=== PATIENT | female | born 1930 | race Caucasian/White ===

== ENCOUNTER 2016-07-30 08:07 | Inpatient (IN) | payer MEDICARE, BC ==
[~2016-07-30] VITALS: Ht 167.6 cm; Wt 99.9 kg
[~2016-07-30 08:07] MED LIST: ALLO100T PO; ASCO500C PO; ASPI325T4 PO; CALC500T27 PO; CEFP200T PO; CLOP75TA PO; CYCL5TAB PO; DICY10CA53 PO; DOCU100C5 PO; DULO60CA6 PO; FENT1PAT19 TD; FURO-69 PO; GLUC1500 PO; HYDR-2672 PO; IRBE1TAB3 PO; LACT1CAP8 PO; LEVO250T25 PO; LEVO25TA2 PO; LEVO75TA5 PO; LIDO700A4 TP; LORA10TA68 PO; MENT118G TP; METO10TA PO; MULT1TAB52 PO; OMEG10006 PO; PANT40TA3 PO; PHEN-318 PO; PREG100C PO; PREG150C PO; VIT1CAPS10 PO
[2016-07-30] MEDS ORDERED: ACETAMINOPHEN 325 MG SUPP.RECT. PR ONE (08:30)
[2016-07-30] MEDS ORDERED: ACETAMINOPHEN 650 MG SUPP.RECT. PR ONE (08:30)
--- NOTE | 2016-07-30 08:39 | PHYS DOC ---
Past Medical History Past Medical History: Arthritis, Depression, Fibromyalgia, GERD, Hypertension, Hypothyroid, [place], Other Additional Past Medical Histor: spinal stenosis, macular generation Past Surgical History: Other Additional Past Surgical Histo: mult. back surg., promus stent ivc filter, toe surg, bladder lift, sinus sg Alcohol Use: None Drug Use: None Adult General Chief Complaint Chief Complaint: FEVER HPI HPI Patient is a 86 year old female who presents with fever. Patient brought from intermediate where she had reported temperature of 103 this morning. She has had nasal congestion, rhinorrhea, sore throat for the past 2 days. Denies headache, neck stiffness, cough, shortness of breath, chest pain, abdominal pain , nausea, vomiting, diarrhea, dysuria. Resides at [facility]. PCP is Dr. Robles. Review of Systems Review of Systems Constitutional: Reports fever and chills Eyes: Denies change in visual acuity HENT: Reports nasal congestion and sore throat Respiratory: Denies cough or shortness of breath Cardiovascular: Denies chest pain or edema GI: Denies abdominal pain, nausea, vomiting, bloody stools or diarrhea : Denies dysuria or hematuria Musculoskeletal: Denies back pain or joint pain Integument: Denies rash or skin lesions Neurologic: Denies headache, focal weakness or sensory changes Current Medications Current Medications Current Medications Medications (Trade) Dose Ordered Sig/Jeremy Start Time Stop Time Status Last Admin Dose Admin Acetaminophen (Tylenol) 650 mg 1X ONCE 07/30/16 08:30 07/30/16 08:31 Cancel Acetaminophen 650 mg 650 mg 1X ONCE 07/30/16 08:30 07/30/16 08:43 DC 07/30/16 09:05 650 MG Levofloxacin/ Dextrose 1 each 1 each PRN DAILY PRN 07/30/16 09:15 Piperacillin Sod/ Tazobactam Sod (Zosyn Per Pharmacy) 1 each PRN DAILY PRN 07/30/16 09:15 Piperacillin Sod/ Tazobactam Sod/ Sodium Chloride (Zosyn/Iv Sodium Chloride 0.9% 100ml) 100 ml @ 200 mls/hr Q6HRS 07/30/16 09:30 07/30/16 09:57 200 MLS/HR Sodium Chloride (Iv Sodium Chloride 0.9% 1000ml Bag) ml @ 500 mls/hr Q0M 07/30/16 09:07 07/30/16 15:37 07/30/16 10:30 500 MLS/HR Vancomycin HCl (Vanco Per Pharmacy) 1 each PRN DAILY PRN 07/30/16 09:15 Vancomycin HCl 2 gm/Sodium Chloride 500 ml @ 250 mls/hr 1X ONCE 07/30/16 09:30 07/30/16 11:29 Allergies Allergies Allergies Coded Allergies Type Severity Reaction Last Updated Verified nitrofurantoin Allergy Intermediate 12/25/14 Yes tramadol Allergy Intermediate 12/25/14 Yes Physical Exam Physical Exam Constitutional: Well developed, well nourished, no acute distress, non-toxic appearance. HENT: Normocephalic, atraumatic, bilateral external ears normal, TMs clear no bulging or erythema, oropharynx dry, no tonsillar enlargement or exudate, nose normal. Eyes: PERRLA, EOMI, conjunctiva normal, no discharge. Neck: supple, no stridor. No meningismus Cardiovascular: RRR, no murmurs, no edema. Lungs & Thorax: LCTAB, no wheezing, no respiratory distress. Abdomen: soft, nontender, nondistended. Skin: Warm, dry, no erythema, no rash. Back: No tenderness. Extremities: No tenderness, no edema. Neurologic: Alert and oriented X 3, cranial nerves II through XII grossly intact , symmetric strength and sensation to upper and lower extremities though diffusely weak, no focal deficits noted. Psychologic: Flat affect Current Patient Data Vital Signs Vital Signs Date Time Temp Pulse Resp B/P Pulse Ox O2 Delivery O2 Flow Rate FiO2 07/30/16 09:20 80 20 137/59 96 3 07/30/16 09:15 101.6 101.6 07/30/16 08:07 NonRebreather Mask Lab Values Laboratory Tests Test 07/30/16 08:21 07/30/16 08:25 07/30/16 09:15 Influenza Type A Antigen Negative (NEGATIVE) Influenza Type B Antigen Negative (NEGATIVE) White Blood Count 16.3x10^3/uL (4.0-11.0) H Red Blood Count 4.39x10^6/uL (3.50-5.40) Hemoglobin 12.8g/dL (12.0-15.5) Hematocrit 39.3% (36.0-47.0) Mean Corpuscular Volume 89fL (79-100) Mean Corpuscular Hemoglobin 29pg (25-35) Mean Corpuscular Hemoglobin Concent 33g/dL (31-37) Red Cell Distribution Width 15.8% (11.5-14.5) H Platelet Count 246x10^3/uL (140-400) Neutrophils (%) (Auto) 79% (31-73) H Lymphocytes (%) (Auto) 10% (24-48) L Monocytes (%) (Auto) 9% (0-9) Eosinophils (%) (Auto) 1% (0-3) Basophils (%) (Auto) 1% (0-3) Neutrophils # (Auto) 13.0x10^3uL (1.8-7.7) H Lymphocytes # (Auto) 1.7x10^3/uL (1.0-4.8) Monocytes # (Auto) 1.5x10^3/uL (0.0-1.1) H Eosinophils # (Auto) 0.1x10^3/uL (0.0-0.7) Basophils # (Auto) 0.2x10^3/uL (0.0-0.2) Segmented Neutrophils % 83% (35-66) H Band Neutrophils % 2% (0-9) Lymphocytes % 6% (24-48) L Monocytes % 6% (0-10) Eosinophils % 1% (0-5) Basophils % 2% (0-3) Platelet Estimate Adequate (ADEQUATE) Prothrombin Time 13.6SEC (11.7-14.0) Prothrombin Time INR 1.1 (0.8-1.1) PTT 25SEC (24-38) Sodium Level 142mmol/L (136-145) Potassium Level 4.1mmol/L (3.5-5.1) Chloride Level 105mmol/L (98-107) Carbon Dioxide Level 28mmol/L (21-32) Anion Gap 9 (6-14) Blood Urea Nitrogen 24mg/dL (7-20) H Creatinine 1.1mg/dL (0.6-1.0) H Estimated GFR (Cockcroft-Gault) 47.1 BUN/Creatinine Ratio 22 (6-20) H Glucose Level 118mg/dL (70-99) H Lactic Acid Level 0.9mmol/L (0.4-2.0) Calcium Level 9.1mg/dL (8.5-10.1) Total Bilirubin 0.6mg/dL (0.2-1.0) Aspartate Amino Transferase (AST) 18U/L (15-37) Alanine Aminotransferase (ALT) 14U/L (14-59) Alkaline Phosphatase 53U/L (46-116) Troponin I Quantitative < 0.017ng/mL (0.000-0.055) FQ-Cki-B-Type Natriuretic Peptide 1128pg/mL (0-449) H Total Protein 7.2g/dL (6.4-8.2) Albumin 3.3g/dL (3.4-5.0) L Albumin/Globulin Ratio 0.8 (1.0-1.7) L Thyroid Stimulating Hormone (TSH) 1.353uIU/mL (0.358-3.74) Urine Collection Type Unknown Urine Color Yellow Urine Clarity Clear Urine pH 5.[address] 1.020 Urine Protein Negativemg/dL (NEG-TRACE) Urine Glucose (UA) Negativemg/dL (NEG) Urine Ketones (Stick) Negativemg/dL (NEG) Urine Blood Negative (NEG) Urine Nitrite Negative (NEG) Urine Bilirubin Negative (NEG) Urine Urobilinogen Dipstick 0.2mg/dL (0.2 mg/dL) Urine Leukocyte Esterase Negative (NEG) Urine RBC 0/HPF (0-2) Urine WBC 0/HPF (0-4) Urine Squamous Epithelial Cells Few/LPF Urine Bacteria 0/HPF (0-FEW) Urine Mucus Marked/LPF Laboratory Tests 07/30/16 08:25 Laboratory Tests 07/30/16 08:25 EKG EKG Interpreted by me: Irregularly irregular rate 83, no acute ST or T wave changes , no ectopy. [] Radiology/Procedures Radiology/Procedures PROCEDURE: CHEST AP ONLY Portable chest, 07/30/2016: History: Fever Comparison is made to a study from 09/16/2015. The heart size and pulmonary vascularity are normal. There is calcific plaquing of the aorta. There is minimal new right basilar streaky opacity. The left lung is clear. There is no evidence of pleural fluid. IMPRESSION: Minimal streaky right basilar atelectasis/infiltrate. DICTATED and SIGNED BY: AYAAN TORRES MD DATE: 07/30/16 0852[] Course & Med Decision Making Course & Med Decision Making Pertinent Labs and Imaging studies reviewed. (See chart for details) Patient presents with fever, found to have leukocytosis and infiltrate on chest x-ray consistent with sepsis and healthcare associated pneumonia. Sepsis protocol followed with administration of IV fluids, blood cultures and lactic acid were obtained. Influenza negative, no evidence of UTI. Patient felt better after Tylenol administered. Gave broad-spectrum antibiotics to cover for healthcare associated pneumonia as the patient is a resident at a intermediate. Recommended admission to the hospital for further evaluation and treatment. The patient agreed with plan of care. Discussed with Dr. Renee who advises that he does not admit Dr. Robles's intermediate patients. Discussed with Dr. Kan who agrees to admit to inpatient status. Patient admitted in stable & improved condition. [] Dragon Disclaimer Dragon Disclaimer This electronic medical record was generated, in whole or in part, using a voice recognition dictation system. Departure Departure Impression: Primary Impression: Sepsis Additional Impressions: Healthcare-associated pneumonia Fever Leukocytosis Disposition: ADMITTED INPATIENT Condition: IMPROVED Referrals: SUNG ROBLES (PCP) Problem Qualifiers CHRISS VEE MD Jul 30, 2016 08:39
[2016-07-30 08:43] LABS: BASO # 0.2 x10^3/uL (0.0-0.2); BASO % 1 % (0-3); EOS % 1 % (0-3); HEMATOCRIT 39.3 % (36.0-47.0); HEMOGLOBIN 12.8 g/dL (12.0-15.5); LYMPH # 1.7 x10^3/uL (1.0-4.8); LYMPH % 10 % (24-48); MEAN CORPUSCULAR HEMOGLOBIN 29 pg (25-35); MEAN CORPUSCULAR HGB CONC 33 g/dL (31-37); MEAN CORPUSCULAR VOLUME 89 fL (79-100); MONO % 9 % (0-9); NEUT % 79 % (31-73); PLATELET COUNT 246 x10^3/uL (140-400); RED BLOOD COUNT 4.39 x10^6/uL (3.50-5.40); RED CELL DISTRIBUTION WIDTH 15.8 % (11.5-14.5); WHITE BLOOD COUNT 16.3 x10^3/uL (4.0-11.0)
[2016-07-30 08:53] LABS: OBC FLU VALID
[2016-07-30 08:54] LABS: INR 1.1 (0.8-1.1); PROTHROMBIN TIME PATIENT 13.6 SEC (11.7-14.0)
--- NOTE | 2016-07-30 08:56 | RAD ---
Portable chest, 07/30/2016: History: Fever Comparison is made to a study from 09/16/2015. The heart size and pulmonary vascularity are normal. There is calcific plaquing of the aorta. There is minimal new right basilar streaky opacity. The left lung is clear. There is no evidence of pleural fluid. IMPRESSION: Minimal streaky right basilar atelectasis/infiltrate.
[2016-07-30 08:57] LABS: CALCIUM 9.1 mg/dL (8.5-10.1); CREATININE 1.1 mg/dL (0.6-1.0); GFR 47.1; POTASSIUM 4.1 mmol/L (3.5-5.1)
[2016-07-30] MEDS ORDERED: NORMAL SALINE IV SCH (09:07)
[2016-07-30 09:10] LABS: ALBUMIN 3.3 g/dL (3.4-5.0); ALBUMIN/GLOBULIN RATIO 0.8 (1.0-1.7); TOTAL BILIRUBIN 0.6 mg/dL (0.2-1.0); TOTAL PROTEIN 7.2 g/dL (6.4-8.2)
[2016-07-30] MEDS ORDERED: LEVOFLOXACIN PER PHARMACY MC PRN (09:15)
[2016-07-30] MEDS ORDERED: PIP/TAZO PER PHARMACY MC PRN (09:15)
--- NOTE | 2016-07-30 09:18 | EKG ---
[facility] [address] [place] [address] Test Date: 2016-07-30 Test Time: 09:02:59 Pat Name: JANELL CHAHAL Department: Room: Gender: F Works Manager: : 1930 Requested By: CHRISS VEE Order Number: [id number] Reading MD: Hollie Lozano Measurements Intervals [place] Rate: 83 P: [place]: QRS: 0 QRSD: 84 T: 16 QT: 392 QTc: 461 Interpretive Statements SINUS RHYTHM LEFTWARD AXIS QRS(T) CONTOUR ABNORMALITY CONSIDER ANTEROSEPTAL MYOCARDIAL DAMAGE ABNORMAL ECG Electronically Signed On 08-01-2016 18:52:28 CDT by Hollie Lozano
[2016-07-30 09:28] LABS: BILIRUBIN,URINE NEGATIVE (NEG); GLUCOSE,URINE NEGATIVE (NEG); NITRITE,URINE NEGATIVE (NEG); PH,URINE 5.5; PROTEIN,URINE NEGATIVE (NEG-TRACE); UROBILINOGEN,URINE 0.2 mg/dL (0.2 mg/dL)
[2016-07-30] MEDS ORDERED: VANCOMYCIN 2 GM in IV NORMAL SALINE 500ML BAG 500 ML IV ONE (09:30)
[2016-07-30 09:43] LABS: BACTERIA,URINE 0 /HPF (0-FEW); RBC,URINE 0 /HPF (0-2); SQUAMOUS EPITHELIAL CELL,UR FEW /LPF; WBC,URINE 0 /HPF (0-4)
[2016-07-30] MEDS: PIPERACILLIN/TAZOBACTAM 4.5 GM in IV NORMAL SALINE 100ML 100 ML IV SCH ×2 (09:57→18:18)
[2016-07-30 10:04] LABS: % BASOS 2 % (0-3); % EOS 1 % (0-5); PLT ESTIMATE ADEQUATE (ADEQUATE)
[2016-07-30] MEDS ORDERED: FENTANYL PF 100 MCG/2 ML VIAL. IV PRN (10:45)
[2016-07-30] MEDS ORDERED: ONDANSETRON PF 4 MG/2 ML VIAL. IV PRN (10:45)
[2016-07-30] MEDS ORDERED: ACETAMINOPHEN 325 MG TABLET. PO PRN (10:45)
[2016-07-30 10:55] VITALS: BP 104/42
[2016-07-30] MEDS: VANCOMYCIN PER PHARMACY MC PRN ×3 (13:10→13:15)
--- NOTE | 2016-07-30 13:40 | PDOC ---
PULMONARY PROGRESS NOTES Vitals Vital Signs Date Time Temp Pulse Resp B/P Pulse Ox O2 Delivery O2 Flow Rate FiO2 07/30/16 10:55 97.7 64 20 104/42 91 Nasal Cannula 3.0 97.7 Labs Laboratory Tests Test 07/30/16 08:21 07/30/16 08:25 07/30/16 09:15 07/30/16 12:45 Influenza Type A Antigen Negative (NEGATIVE) Influenza Type B Antigen Negative (NEGATIVE) White Blood Count 16.3x10^3/uL (4.0-11.0) Red Blood Count 4.39x10^6/uL (3.50-5.40) Hemoglobin 12.8g/dL (12.0-15.5) Hematocrit 39.3% (36.0-47.0) Mean Corpuscular Volume 89fL (79-100) Mean Corpuscular Hemoglobin 29pg (25-35) Mean Corpuscular Hemoglobin Concent 33g/dL (31-37) Red Cell Distribution Width 15.8% (11.5-14.5) Platelet Count 246x10^3/uL (140-400) Neutrophils (%) (Auto) 79% (31-73) Lymphocytes (%) (Auto) 10% (24-48) Monocytes (%) (Auto) 9% (0-9) Eosinophils (%) (Auto) 1% (0-3) Basophils (%) (Auto) 1% (0-3) Neutrophils # (Auto) 13.0x10^3uL (1.8-7.7) Lymphocytes # (Auto) 1.7x10^3/uL (1.0-4.8) Monocytes # (Auto) 1.5x10^3/uL (0.0-1.1) Eosinophils # (Auto) 0.1x10^3/uL (0.0-0.7) Basophils # (Auto) 0.2x10^3/uL (0.0-0.2) Segmented Neutrophils % 83% (35-66) Band Neutrophils % 2% (0-9) Lymphocytes % 6% (24-48) Monocytes % 6% (0-10) Eosinophils % 1% (0-5) Basophils % 2% (0-3) Platelet Estimate Adequate (ADEQUATE) Prothrombin Time 13.6SEC (11.7-14.0) Prothromb Time International Ratio 1.1 (0.8-1.1) Activated Partial Thromboplast Time 25SEC (24-38) Sodium Level 142mmol/L (136-145) Potassium Level 4.1mmol/L (3.5-5.1) Chloride Level 105mmol/L (98-107) Carbon Dioxide Level 28mmol/L (21-32) Anion Gap 9 (6-14) Blood Urea Nitrogen 24mg/dL (7-20) Creatinine 1.1mg/dL (0.6-1.0) Estimated GFR (Cockcroft-Gault) 47.1 BUN/Creatinine Ratio 22 (6-20) Glucose Level 118mg/dL (70-99) Lactic Acid Level 0.9mmol/L (0.4-2.0) 2.0mmol/L (0.4-2.0) Calcium Level 9.1mg/dL (8.5-10.1) Total Bilirubin 0.6mg/dL (0.2-1.0) Aspartate Amino Transf (AST/SGOT) 18U/L (15-37) Alanine Aminotransferase (ALT/SGPT) 14U/L (14-59) Alkaline Phosphatase 53U/L (46-116) Troponin I Quantitative < 0.017ng/mL (0.000-0.055) ZY-Rjh-L-Type Natriuretic Peptide 1128pg/mL (0-449) Total Protein 7.2g/dL (6.4-8.2) Albumin 3.3g/dL (3.4-5.0) Albumin/Globulin Ratio 0.8 (1.0-1.7) Thyroid Stimulating Hormone (TSH) 1.353uIU/mL (0.358-3.74) Urine Collection Type Unknown Urine Color Yellow Urine Clarity Clear Urine pH 5.5 Urine Specific [place] 1.020 Urine Protein Negativemg/dL (NEG-TRACE) Urine Glucose (UA) Negativemg/dL (NEG) Urine Ketones (Stick) Negativemg/dL (NEG) Urine Blood Negative (NEG) Urine Nitrite Negative (NEG) Urine Bilirubin Negative (NEG) Urine Urobilinogen Dipstick 0.2mg/dL (0.2 mg/dL) Urine Leukocyte Esterase Negative (NEG) Urine RBC 0/HPF (0-2) Urine WBC 0/HPF (0-4) Urine Squamous Epithelial Cells Few/LPF Urine Bacteria 0/HPF (0-FEW) Urine Mucus Marked/LPF Laboratory Tests Test 07/30/16 08:21 07/30/16 08:25 07/30/16 09:15 07/30/16 12:45 Influenza Type A Antigen Negative (NEGATIVE) Influenza Type B Antigen Negative (NEGATIVE) White Blood Count 16.3x10^3/uL (4.0-11.0) Red Blood Count 4.39x10^6/uL (3.50-5.40) Hemoglobin 12.8g/dL (12.0-15.5) Hematocrit 39.3% (36.0-47.0) Mean Corpuscular Volume 89fL (79-100) Mean Corpuscular Hemoglobin 29pg (25-35) Mean Corpuscular Hemoglobin Concent 33g/dL (31-37) Red Cell Distribution Width 15.8% (11.5-14.5) Platelet Count 246x10^3/uL (140-400) Neutrophils (%) (Auto) 79% (31-73) Lymphocytes (%) (Auto) 10% (24-48) Monocytes (%) (Auto) 9% (0-9) Eosinophils (%) (Auto) 1% (0-3) Basophils (%) (Auto) 1% (0-3) Neutrophils # (Auto) 13.0x10^3uL (1.8-7.7) Lymphocytes # (Auto) 1.7x10^3/uL (1.0-4.8) Monocytes # (Auto) 1.5x10^3/uL (0.0-1.1) Eosinophils # (Auto) 0.1x10^3/uL (0.0-0.7) Basophils # (Auto) 0.2x10^3/uL (0.0-0.2) Segmented Neutrophils % 83% (35-66) Band Neutrophils % 2% (0-9) Lymphocytes % 6% (24-48) Monocytes % 6% (0-10) Eosinophils % 1% (0-5) Basophils % 2% (0-3) Platelet Estimate Adequate (ADEQUATE) Prothrombin Time 13.6SEC (11.7-14.0) Prothromb Time International Ratio 1.1 (0.8-1.1) Activated Partial Thromboplast Time 25SEC (24-38) Sodium Level 142mmol/L (136-145) Potassium Level 4.1mmol/L (3.5-5.1) Chloride Level 105mmol/L (98-107) Carbon Dioxide Level 28mmol/L (21-32) Anion Gap 9 (6-14) Blood Urea Nitrogen 24mg/dL (7-20) Creatinine 1.1mg/dL (0.6-1.0) Estimated GFR (Cockcroft-Gault) 47.1 BUN/Creatinine Ratio 22 (6-20) Glucose Level 118mg/dL (70-99) Lactic Acid Level 0.9mmol/L (0.4-2.0) 2.0mmol/L (0.4-2.0) Calcium Level 9.1mg/dL (8.5-10.1) Total Bilirubin 0.6mg/dL (0.2-1.0) Aspartate Amino Transf (AST/SGOT) 18U/L (15-37) Alanine Aminotransferase (ALT/SGPT) 14U/L (14-59) Alkaline Phosphatase 53U/L (46-116) Troponin I Quantitative < 0.017ng/mL (0.000-0.055) AK-Wnb-I-Type Natriuretic Peptide 1128pg/mL (0-449) Total Protein 7.2g/dL (6.4-8.2) Albumin 3.3g/dL (3.4-5.0) Albumin/Globulin Ratio 0.8 (1.0-1.7) Thyroid Stimulating Hormone (TSH) 1.353uIU/mL (0.358-3.74) Urine Collection Type Unknown Urine Color Yellow Urine Clarity Clear Urine pH 5.5 Urine Specific [place] 1.020 Urine Protein Negativemg/dL (NEG-TRACE) Urine Glucose (UA) Negativemg/dL (NEG) Urine Ketones (Stick) Negativemg/dL (NEG) Urine Blood Negative (NEG) Urine Nitrite Negative (NEG) Urine Bilirubin Negative (NEG) Urine Urobilinogen Dipstick 0.2mg/dL (0.2 mg/dL) Urine Leukocyte Esterase Negative (NEG) Urine RBC 0/HPF (0-2) Urine WBC 0/HPF (0-4) Urine Squamous Epithelial Cells Few/LPF Urine Bacteria 0/HPF (0-FEW) Urine Mucus Marked/LPF Medications Active Scripts Medications Dose Route/Sig Days Date Category Cefpodoxime Proxetil 200 Mg Tablet 200 Mg PO BID 09/18/15 Rx Probiotic (Lactobacillus Combo No.11) 1 Each Cap.sprink 1 Each PO DAILY 09/15/15 Reported Cyclobenzaprine Hcl 5 Mg Tablet 5 Mg PO PRN Q6HRS PRN 09/15/15 Reported Cymbalta (Duloxetine Hcl) 60 Mg Capsule.dr 60 Mg PO HS 09/15/15 Reported Claritin (Loratadine) 10 Mg Tablet 1 Tab PO DAILY 09/15/15 Reported Biofreeze (Menthol) 118 Ml Gel..ml. 118 Ml TP BID 09/15/15 Reported Aspirin 325 Mg Tablet 1 Tab PO DAILY 09/15/15 Reported Levothyroxine Sodium 75 Mcg Tablet 1 Tab PO DAILY 09/15/15 Reported Ocuvite Lutein & Zeaxanthin Cp (Vit C/E/Zn/Coppr/Lutein/Zeaxan) 1 Each Capsule 2 Each PO HS 12/25/14 Reported Allopurinol 100 Mg Tablet 1 Tab PO HS 12/25/14 Reported Calcium (Calcium Carbonate) 500 Mg Tablet 1,000 Mg PO DAILYWLUN 12/25/14 Reported Lidoderm (Lidocaine) 700 Mg Adh..patch 2 Patch TP DAILY 12/25/14 Reported Glucosamine Hcl 1,500 Mg Tablet 1,500 Mg PO DAILYWLUN 12/25/14 Reported FENTANYL 75mcg/hr (Fentanyl) 1 Each Patch.td72 1 Patch TD PRN Q48HR PRN 12/25/14 Reported Lyrica (Pregabalin) 150 Mg Capsule 1 Cap PO HS 12/25/14 Reported Lyrica (Pregabalin) 100 Mg Capsule 1 Cap PO DAILY 12/25/14 Reported Protonix (Pantoprazole Sodium) 40 Mg Tablet.dr 1 Tab PO DAILY 12/25/14 Reported Clopidogrel (Clopidogrel Bisulfate) 75 Mg Tablet 1 Tab PO DAILY 12/25/14 Reported Avalide 300-12.5 Mg Tablet (Irbesartan/Hydrochlorothiazide) 1 Each Tablet 1 Each PO DAILY 12/25/14 Reported Vitamin C (Ascorbic Acid) 500 Mg Capsule.er 500 Mg PO HS 12/25/14 Reported Multivitamins (Multivitamin) 1 Each Tablet 1 Tab PO DAILY 12/25/14 Reported Pv Fish Oil 1,000 Mg Softgel ([place]-3 Fatty Acids/Vitamin E) 1,000 Mg Capsule 1 Cap PO DAILY 12/25/14 Reported Hydrocodone-Apap 10-325 (Hydrocodone Bit/Acetaminophen) 1 Each Tablet 1 Tab PO BID PRN 12/25/14 Reported Impression . pneumonia fever see orders thanks ARASELI ROWAN MD Jul 30, 2016 13:40
[2016-07-30] MEDS ORDERED: ALBUTEROL SULFATE 2.5 MG/3 ML NEBU. NEB PRN (13:45)
[2016-07-30 15:30] VITALS: BP 114/47
[2016-07-30] MEDS: ENOXAPARIN 40 MG/0.4 ML SYRINGE. SQ SCH (15:56)
[2016-07-30] MEDS ORDERED: LOSA100T2 PO (16:43)
[2016-07-30] MEDS ORDERED: AMLO5TAB2 PO (16:43)
[2016-07-30] MEDS ORDERED: ACET325T21 PO (16:43)
[2016-07-30] MEDS ORDERED: FENTANYL 75MCG/HR PATCH. TD PRN (17:00)
[2016-07-30] MEDS: LIDOCAINE (700MG/PATCH) PATCH. TP SCH (17:00)
[2016-07-30] MEDS ORDERED: POLYETHYLENE GLYCOL 3350 17 GM PACKET. PO PRN (17:00)
[2016-07-30] MEDS ORDERED: BISACODYL 10 MG SUPP.RECT. PR PRN (17:00)
[2016-07-30] MEDS ORDERED: METHYL SALICYLATE/MENTHOL TOPICAL OINTMENT 29GM TUBE. TP PRN (17:15)
[2016-07-30] MEDS: OMEGA-3 FATTY ACIDS/FISH OIL 1,000 MG CAPSULE. PO SCH (18:19)
[2016-07-30] MEDS: LEVOTHYROXINE 75 MCG TABLET PO SCH (18:19)
[2016-07-30] MEDS: AMLODIPINE BESYLATE 5 MG TABLET. PO SCH (18:19)
[2016-07-30] MEDS: ASPIRIN 325 MG TABLET PO SCH (18:20)
[2016-07-30] MEDS: CLOPIDOGREL BISULFATE 75 MG TABLET PO SCH (18:20)
[2016-07-30] MEDS: LACTOBACILLUS ACIDOPH & BULGAR 1 TABLET. PO SCH (18:20)
[2016-07-30] MEDS: CETIRIZINE HCL 10 MG TABLET. PO SCH (18:20)
[2016-07-30] MEDS: LOSARTAN POTASSIUM 50 MG TABLET. PO SCH (18:20)
[2016-07-30 19:00] VITALS: BP 132/58
[2016-07-30] MEDS: PREGABALIN 75 MG CAPSULE PO SCH (20:56)
[2016-07-30] MEDS: DULOXETINE HCL 30 MG CAPSULE.DR. PO SCH (20:56)
[2016-07-30] MEDS: ALLOPURINOL 100 MG TABLET. PO SCH (20:56)
[2016-07-30 23:00] VITALS: BP 166/44
[2016-07-31] VITALS (7 sets, daily range): BP systolic 105–140; BP diastolic 40–59
--- NOTE | 2016-07-31 01:36 | CONS ---
DATE OF CONSULTATION: 07/30/2016 ATTENDING PHYSICIAN: Dr. Kan. REASON FOR CONSULTATION: The patient seen in pulmonary consultation at the request of Dr. Perez for abnormal chest x-ray. HISTORY OF PRESENT ILLNESS: The patient is an 86-year-old that resides at a alf. She had some encephalopathy and could not recall of the specifics. She basically had a high fever. She tells me she had a fever of 105. She presented with fever, increasing shortness of breath, cough mostly nonproductive. No hemoptysis. She had a chest x-ray revealing right basilar infiltrate, I personally reviewed. She is admitted. I was asked to see her in consultation. She denies nausea, vomiting, diarrhea. Her appetite is poor. PAST MEDICAL HISTORY: Arthritis, depression, fibromyalgia, gastroesophageal reflux, hypertension, hypothyroidism, coronary artery disease with previous myocardial infarction. PAST SURGICAL HISTORY: Previous IVC filter placement, bladder lift, sinus surgery. ALLERGIES: TO NITROFURANTOIN AND TRAMADOL. REVIEW OF SYSTEMS: As indicated above, otherwise, a 10-point system was reviewed and negative. SOCIAL HISTORY: Socially, she is a lifetime nonsmoker, denies any alcohol intake. CURRENT MEDICATION: List was reviewed. Please see the MRAD. FAMILY HISTORY: Noncontributory in this age group. PHYSICAL EXAMINATION: VITAL SIGNS: Since admission to the floor, the patient had a T-max of 103.0. She is currently ____. HEENT: Eyes, the sclerae were nonicteric. NECK: Jugular venous distention was not elevated. No lymphadenopathy. CHEST: Full expansion. LUNGS: Rales in the right base. No wheezes. CARDIOVASCULAR: Regular rate and rhythm with S1, S2, no S3. ABDOMEN: Soft, nontender, nondistended. EXTREMITIES: No clubbing, cyanosis or edema. NEUROLOGIC: The patient was awake, alert, following commands. A detailed neuro exam was not performed. LABORATORY DATA: White count was elevated at 16,000, hemoglobin 12, hematocrit of 39, platelet count was noted. Differential revealed increased segs and increased lymphocytes. Electrolytes were noted. BNP was elevated. BUN was elevated. Creatinine was elevated. INR was 1.1. Serology for influenza was negative. UA was negative. Chest x-ray as indicated above. IMPRESSION: 1. Fever, suspect secondary to pneumonia. 2. Abnormal x-ray revealing right basilar infiltrate, atelectasis. 3. Acute metabolic toxic encephalopathy. 4. Leukocytosis. 5. Fibromyalgia. 6. Depression. PLAN: 1. Recommend coverage for both gram-negative and gram-positive organisms. 2. Repeat chest x-ray. 3. Follow clinical course and de-escalate the antibiotics once cultures ____ have returned back negative. I do appreciate the privilege in sharing in this patient's care. ARASELI ROWAN MD DR: ODESSA/ellis JOB#: [id number] / [id number]
[2016-07-31 05:33] LABS: BASO # 0.1 x10^3/uL (0.0-0.2); BASO % 1 % (0-3); EOS % 4 % (0-3); HEMATOCRIT 31.8 % (36.0-47.0); HEMOGLOBIN 10.4 g/dL (12.0-15.5); LYMPH # 2.2 x10^3/uL (1.0-4.8); LYMPH % 15 % (24-48); MEAN CORPUSCULAR HEMOGLOBIN 29 pg (25-35); MEAN CORPUSCULAR HGB CONC 33 g/dL (31-37); MEAN CORPUSCULAR VOLUME 90 fL (79-100); MONO % 9 % (0-9); NEUT % 72 % (31-73); PLATELET COUNT 182 x10^3/uL (140-400); RED BLOOD COUNT 3.55 x10^6/uL (3.50-5.40); RED CELL DISTRIBUTION WIDTH 16.1 % (11.5-14.5); WHITE BLOOD COUNT 14.9 x10^3/uL (4.0-11.0)
[2016-07-31] MEDS: PIPERACILLIN/TAZOBACTAM 4.5 GM in IV NORMAL SALINE 100ML 100 ML IV SCH ×5 (05:38→12:49)
[2016-07-31 05:57] LABS: CALCIUM 8.4 mg/dL (8.5-10.1); CREATININE 1.3 mg/dL (0.6-1.0); GFR 38.8; POTASSIUM 3.9 mmol/L (3.5-5.1)
[2016-07-31] MEDS: LEVOTHYROXINE 75 MCG TABLET PO SCH (06:07)
[2016-07-31] MEDS: CLOPIDOGREL BISULFATE 75 MG TABLET PO SCH (06:07)
--- NOTE | 2016-07-31 07:54 | RAD ---
EXAM: Chest, single view. HISTORY: Fever. COMPARISON: 07/30/2016 and 11/04/2007. FINDINGS: A frontal view of the chest is obtained. There is no infiltrate, effusion or pneumothorax. The heart is normal in size. There is widening of the right paratracheal stripe. This is minimally increased compared to a remote study dated 11/04/2007, a component of which is likely due to differences in patient positioning. This may be due to tortuous arch great vessels. IMPRESSION: No acute pulmonary finding.
[2016-07-31] MEDS ORDERED: LOSARTAN POTASSIUM 50 MG TABLET. ONE (08:18)
[2016-07-31] MEDS: LACTOBACILLUS ACIDOPH & BULGAR 1 TABLET. PO SCH (08:22)
[2016-07-31] MEDS: LOSARTAN POTASSIUM 50 MG TABLET. PO SCH (08:22)
[2016-07-31] MEDS: ASPIRIN 325 MG TABLET PO SCH (08:22)
[2016-07-31] MEDS: CETIRIZINE HCL 10 MG TABLET. PO SCH (08:23)
[2016-07-31] MEDS: AMLODIPINE BESYLATE 5 MG TABLET. PO SCH (08:23)
[2016-07-31] MEDS: OMEGA-3 FATTY ACIDS/FISH OIL 1,000 MG CAPSULE. PO SCH (08:23)
[2016-07-31] MEDS: PREGABALIN 75 MG CAPSULE PO SCH ×2 (08:24→21:35)
[2016-07-31] MEDS: PREGABALIN 50 MG CAPSULE PO SCH (08:30)
[2016-07-31] MEDS: HYDROCODONE/APAP 7.5/325MG TABLET. PO PRN (08:32)
[2016-07-31] MEDS: LIDOCAINE (700MG/PATCH) PATCH. TP SCH (09:00)
[2016-07-31] MEDS: FENTANYL 75MCG/HR PATCH. TD PRN (09:34)
--- NOTE | 2016-07-31 09:38 | PDOC ---
PROGRESS NOTES Chief Complaint Chief Complaint HCAP ASSESSMENT AND pLAN: 1. Sepsis: no fevers reported in 24h. BPs soft but stable 2. RLL PNA: on Zosyn 3. CAD, HTN, HLD: no acute issues, cont home meds 4. Hypothyroidism: on synthroid 5. OA, chronic pain: cont home fentanyl patch, oral breakthough meds 6. Prophylaxis: H2B Vitals Vitals Vital Signs Date Time Temp Pulse Resp B/P Pulse Ox O2 Delivery O2 Flow Rate FiO2 07/31/16 08:32 96 Nasal Cannula 3.0 07/31/16 08:23 71 140/59 07/31/16 07:58 97.5 18 97.5 Physical Exam General: Alert, Cooperative, No acute distress Heart: Regular rate Lungs: Crackles Abdomen: Normal bowel sounds, Soft, No tenderness Extremities: No edema Labs LABS Laboratory Tests Test 07/30/16 12:45 07/31/16 04:40 Lactic Acid Level 2.0mmol/L (0.4-2.0) White Blood Count 14.9x10^3/uL (4.0-11.0) Red Blood Count 3.55x10^6/uL (3.50-5.40) Hemoglobin 10.4g/dL (12.0-15.5) Hematocrit 31.8% (36.0-47.0) Mean Corpuscular Volume 90fL (79-100) Mean Corpuscular Hemoglobin 29pg (25-35) Mean Corpuscular Hemoglobin Concent 33g/dL (31-37) Red Cell Distribution Width 16.1% (11.5-14.5) Platelet Count 182x10^3/uL (140-400) Neutrophils (%) (Auto) 72% (31-73) Lymphocytes (%) (Auto) 15% (24-48) Monocytes (%) (Auto) 9% (0-9) Eosinophils (%) (Auto) 4% (0-3) Basophils (%) (Auto) 1% (0-3) Neutrophils # (Auto) 10.8x10^3uL (1.8-7.7) Lymphocytes # (Auto) 2.2x10^3/uL (1.0-4.8) Monocytes # (Auto) 1.3x10^3/uL (0.0-1.1) Eosinophils # (Auto) 0.6x10^3/uL (0.0-0.7) Basophils # (Auto) 0.1x10^3/uL (0.0-0.2) Sodium Level 139mmol/L (136-145) Potassium Level 3.9mmol/L (3.5-5.1) Chloride Level 104mmol/L (98-107) Carbon Dioxide Level 30mmol/L (21-32) Anion Gap 5 (6-14) Blood Urea Nitrogen 26mg/dL (7-20) Creatinine 1.3mg/dL (0.6-1.0) Estimated GFR (Cockcroft-Gault) 38.8 Glucose Level 103mg/dL (70-99) Calcium Level 8.4mg/dL (8.5-10.1) Review of Systems Review of Systems feels ok, breathing unchanged. YARON PAYNE MD Jul 31, 2016 09:37
--- NOTE | 2016-07-31 10:16 | PDOC ---
PULMONARY PROGRESS NOTES Subjective PT VERY WEAK, NO INCREASE SOA Vitals Vital Signs Date Time Temp Pulse Resp B/P Pulse Ox O2 Delivery O2 Flow Rate FiO2 07/31/16 09:34 96 Nasal Cannula 3.0 07/31/16 08:23 71 140/59 07/31/16 07:58 97.5 18 97.5 ROS: No Nausea, No Chest Pain, No Abdominal Pain, No Increase Cough Lungs: Clear Cardiovascular: S1, S2 Abdomen: Soft Neuro Exam: Alert Extremities: No Edema Skin: Warm Labs Laboratory Tests Test 07/30/16 08:21 07/30/16 08:25 07/30/16 09:15 07/30/16 12:45 Influenza Type A Antigen Negative (NEGATIVE) Influenza Type B Antigen Negative (NEGATIVE) White Blood Count 16.3x10^3/uL (4.0-11.0) Red Blood Count 4.39x10^6/uL (3.50-5.40) Hemoglobin 12.8g/dL (12.0-15.5) Hematocrit 39.3% (36.0-47.0) Mean Corpuscular Volume 89fL (79-100) Mean Corpuscular Hemoglobin 29pg (25-35) Mean Corpuscular Hemoglobin Concent 33g/dL (31-37) Red Cell Distribution Width 15.8% (11.5-14.5) Platelet Count 246x10^3/uL (140-400) Neutrophils (%) (Auto) 79% (31-73) Lymphocytes (%) (Auto) 10% (24-48) Monocytes (%) (Auto) 9% (0-9) Eosinophils (%) (Auto) 1% (0-3) Basophils (%) (Auto) 1% (0-3) Neutrophils # (Auto) 13.0x10^3uL (1.8-7.7) Lymphocytes # (Auto) 1.7x10^3/uL (1.0-4.8) Monocytes # (Auto) 1.5x10^3/uL (0.0-1.1) Eosinophils # (Auto) 0.1x10^3/uL (0.0-0.7) Basophils # (Auto) 0.2x10^3/uL (0.0-0.2) Segmented Neutrophils % 83% (35-66) Band Neutrophils % 2% (0-9) Lymphocytes % 6% (24-48) Monocytes % 6% (0-10) Eosinophils % 1% (0-5) Basophils % 2% (0-3) Platelet Estimate Adequate (ADEQUATE) Prothrombin Time 13.6SEC (11.7-14.0) Prothromb Time International Ratio 1.1 (0.8-1.1) Activated Partial Thromboplast Time 25SEC (24-38) Sodium Level 142mmol/L (136-145) Potassium Level 4.1mmol/L (3.5-5.1) Chloride Level 105mmol/L (98-107) Carbon Dioxide Level 28mmol/L (21-32) Anion Gap 9 (6-14) Blood Urea Nitrogen 24mg/dL (7-20) Creatinine 1.1mg/dL (0.6-1.0) Estimated GFR (Cockcroft-Gault) 47.1 BUN/Creatinine Ratio 22 (6-20) Glucose Level 118mg/dL (70-99) Lactic Acid Level 0.9mmol/L (0.4-2.0) 2.0mmol/L (0.4-2.0) Calcium Level 9.1mg/dL (8.5-10.1) Total Bilirubin 0.6mg/dL (0.2-1.0) Aspartate Amino Transf (AST/SGOT) 18U/L (15-37) Alanine Aminotransferase (ALT/SGPT) 14U/L (14-59) Alkaline Phosphatase 53U/L (46-116) Troponin I Quantitative < 0.017ng/mL (0.000-0.055) DM-Kdl-B-Type Natriuretic Peptide 1128pg/mL (0-449) Total Protein 7.2g/dL (6.4-8.2) Albumin 3.3g/dL (3.4-5.0) Albumin/Globulin Ratio 0.8 (1.0-1.7) Thyroid Stimulating Hormone (TSH) 1.353uIU/mL (0.358-3.74) Urine Collection Type Unknown Urine Color Yellow Urine Clarity Clear Urine pH 5.5 Urine Specific Walls 1.020 Urine Protein Negativemg/dL (NEG-TRACE) Urine Glucose (UA) Negativemg/dL (NEG) Urine Ketones (Stick) Negativemg/dL (NEG) Urine Blood Negative (NEG) Urine Nitrite Negative (NEG) Urine Bilirubin Negative (NEG) Urine Urobilinogen Dipstick 0.2mg/dL (0.2 mg/dL) Urine Leukocyte Esterase Negative (NEG) Urine RBC 0/HPF (0-2) Urine WBC 0/HPF (0-4) Urine Squamous Epithelial Cells Few/LPF Urine Bacteria 0/HPF (0-FEW) Urine Mucus Marked/LPF Test 07/31/16 04:40 White Blood Count 14.9x10^3/uL (4.0-11.0) Red Blood Count 3.55x10^6/uL (3.50-5.40) Hemoglobin 10.4g/dL (12.0-15.5) Hematocrit 31.8% (36.0-47.0) Mean Corpuscular Volume 90fL (79-100) Mean Corpuscular Hemoglobin 29pg (25-35) Mean Corpuscular Hemoglobin Concent 33g/dL (31-37) Red Cell Distribution Width 16.1% (11.5-14.5) Platelet Count 182x10^3/uL (140-400) Neutrophils (%) (Auto) 72% (31-73) Lymphocytes (%) (Auto) 15% (24-48) Monocytes (%) (Auto) 9% (0-9) Eosinophils (%) (Auto) 4% (0-3) Basophils (%) (Auto) 1% (0-3) Neutrophils # (Auto) 10.8x10^3uL (1.8-7.7) Lymphocytes # (Auto) 2.2x10^3/uL (1.0-4.8) Monocytes # (Auto) 1.3x10^3/uL (0.0-1.1) Eosinophils # (Auto) 0.6x10^3/uL (0.0-0.7) Basophils # (Auto) 0.1x10^3/uL (0.0-0.2) Sodium Level 139mmol/L (136-145) Potassium Level 3.9mmol/L (3.5-5.1) Chloride Level 104mmol/L (98-107) Carbon Dioxide Level 30mmol/L (21-32) Anion Gap 5 (6-14) Blood Urea Nitrogen 26mg/dL (7-20) Creatinine 1.3mg/dL (0.6-1.0) Estimated GFR (Cockcroft-Gault) 38.8 Glucose Level 103mg/dL (70-99) Calcium Level 8.4mg/dL (8.5-10.1) Laboratory Tests Test 07/30/16 12:45 07/31/16 04:40 Lactic Acid Level 2.0mmol/L (0.4-2.0) White Blood Count 14.9x10^3/uL (4.0-11.0) Red Blood Count 3.55x10^6/uL (3.50-5.40) Hemoglobin 10.4g/dL (12.0-15.5) Hematocrit 31.8% (36.0-47.0) Mean Corpuscular Volume 90fL (79-100) Mean Corpuscular Hemoglobin 29pg (25-35) Mean Corpuscular Hemoglobin Concent 33g/dL (31-37) Red Cell Distribution Width 16.1% (11.5-14.5) Platelet Count 182x10^3/uL (140-400) Neutrophils (%) (Auto) 72% (31-73) Lymphocytes (%) (Auto) 15% (24-48) Monocytes (%) (Auto) 9% (0-9) Eosinophils (%) (Auto) 4% (0-3) Basophils (%) (Auto) 1% (0-3) Neutrophils # (Auto) 10.8x10^3uL (1.8-7.7) Lymphocytes # (Auto) 2.2x10^3/uL (1.0-4.8) Monocytes # (Auto) 1.3x10^3/uL (0.0-1.1) Eosinophils # (Auto) 0.6x10^3/uL (0.0-0.7) Basophils # (Auto) 0.1x10^3/uL (0.0-0.2) Sodium Level 139mmol/L (136-145) Potassium Level 3.9mmol/L (3.5-5.1) Chloride Level 104mmol/L (98-107) Carbon Dioxide Level 30mmol/L (21-32) Anion Gap 5 (6-14) Blood Urea Nitrogen 26mg/dL (7-20) Creatinine 1.3mg/dL (0.6-1.0) Estimated GFR (Cockcroft-Gault) 38.8 Glucose Level 103mg/dL (70-99) Calcium Level 8.4mg/dL (8.5-10.1) Medications Active Scripts Medications Dose Route/Sig Days Date Category Cefpodoxime Proxetil 200 Mg Tablet 200 Mg PO BID 09/18/15 Rx Probiotic (Lactobacillus Combo No.11) 1 Each Cap.sprink 1 Each PO DAILY 09/15/15 Reported Cyclobenzaprine Hcl 5 Mg Tablet 5 Mg PO PRN Q6HRS PRN 09/15/15 Reported Cymbalta (Duloxetine Hcl) 60 Mg Capsule.dr 60 Mg PO HS 09/15/15 Reported Claritin (Loratadine) 10 Mg Tablet 1 Tab PO DAILY 09/15/15 Reported Biofreeze (Menthol) 118 Ml Gel..ml. 118 Ml TP BID 09/15/15 Reported Aspirin 325 Mg Tablet 1 Tab PO DAILY 09/15/15 Reported Levothyroxine Sodium 75 Mcg Tablet 1 Tab PO DAILY 09/15/15 Reported Ocuvite Lutein & Zeaxanthin Cp (Vit C/E/Zn/Coppr/Lutein/Zeaxan) 1 Each Capsule 2 Each PO HS 12/25/14 Reported Allopurinol 100 Mg Tablet 1 Tab PO HS 12/25/14 Reported Calcium (Calcium Carbonate) 500 Mg Tablet 1,000 Mg PO DAILYWLUN 12/25/14 Reported Lidoderm (Lidocaine) 700 Mg Adh..patch 2 Patch TP DAILY 12/25/14 Reported Glucosamine Hcl 1,500 Mg Tablet 1,500 Mg PO DAILYWLUN 12/25/14 Reported FENTANYL 75mcg/hr (Fentanyl) 1 Each Patch.td72 1 Patch TD PRN Q48HR PRN 12/25/14 Reported Lyrica (Pregabalin) 150 Mg Capsule 1 Cap PO HS 12/25/14 Reported Lyrica (Pregabalin) 100 Mg Capsule 1 Cap PO DAILY 12/25/14 Reported Protonix (Pantoprazole Sodium) 40 Mg Tablet.dr 1 Tab PO DAILY 12/25/14 Reported Clopidogrel (Clopidogrel Bisulfate) 75 Mg Tablet 1 Tab PO DAILY 12/25/14 Reported Avalide 300-12.5 Mg Tablet (Irbesartan/Hydrochlorothiazide) 1 Each Tablet 1 Each PO DAILY 12/25/14 Reported Vitamin C (Ascorbic Acid) 500 Mg Capsule.er 500 Mg PO HS 12/25/14 Reported Multivitamins (Multivitamin) 1 Each Tablet 1 Tab PO DAILY 12/25/14 Reported Pv Fish Oil 1,000 Mg Softgel ([place]-3 Fatty Acids/Vitamin E) 1,000 Mg Capsule 1 Cap PO DAILY 12/25/14 Reported Hydrocodone-Apap 10-325 (Hydrocodone Bit/Acetaminophen) 1 Each Tablet 1 Tab PO BID PRN 12/25/14 Reported Impression . 1. Fever, suspect secondary to pneumonia/ AND viral syndrome 2. Abnormal x-ray revealing right basilar infiltrate, atelectasis. 3. Acute metabolic toxic encephalopathy. 4. Leukocytosis. 5. Fibromyalgia. 6. Depression. Plan . 1. Recommend coverage for both gram-negative and gram-positive organisms. 2. Repeat chest x-ray, reviewed no increase infiltrates 3. Follow clinical course and de-escalate the antibiotics once cultures have returned back negative. ARASELI ROWAN MD Jul 31, 2016 10:16
--- NOTE | 2016-07-31 10:24 | HP ---
ADMIT DATE: 07/30/2016 CHIEF COMPLAINT: Fever. HISTORY OF PRESENT ILLNESS: The patient is an 86-year-old skilled nursing resident who was found with a temperature of 103 at the skilled nursing. She was brought to the Emergency Room. On further questioning, she relayed that she had had several days of nasal congestion, rhinorrhea, sore throat, but denied any headaches, any cough, shortness of breath or chest pain. She was found with right lower lobe pneumonia and was admitted. PAST MEDICAL HISTORY: Hypertension, GERD, hypothyroidism, arthritis, depression, fibromyalgia, CAD, spinal stenosis, macular degeneration, IVC filter placement, back surgeries and bladder lift. FAMILY HISTORY: Noncontributory in this 86-year-old. SOCIAL HISTORY: Currently in a skilled nursing. No toxic habits. ALLERGIES: NITROFURANTOIN, TRAMADOL. MEDICATIONS: MAR reconciled with home medications. REVIEW OF SYSTEMS: As per HPI. Rest of organ system review is negative. PHYSICAL EXAMINATION: VITAL SIGNS: Show a blood pressure of 104/42, heart rate of 64, respiratory rate 20, currently afebrile, at admission 103. GENERAL: This is an obese 86-year-old woman, pale appearing, alert and oriented, in no acute distress. HEENT: Shows no scleral icterus. NECK: Supple. LUNGS: Have rales in the right base. CARDIOVASCULAR: Heart has irregular rate and rhythm. ABDOMEN: Obese, positive bowel sounds. EXTREMITIES: Show no edema. SKIN: Warm, soft and dry. LABORATORY DATA: CBC with a WBC of 16.3, hemoglobin 12.8, platelets of 246, neutrophils segmented 83, bands 2. Chemistries with a BUN and creatinine of 24 and 1.1, normal electrolytes, normal LFTs, albumin at 3.3. Coags within normal limits. Serology for influenza A and B were negative. RADIOLOGIC IMAGING: Chest x-ray with mild streaky right basilar atelectasis/infiltrate. ASSESSMENT AND PLAN: The patient is an 86-year-old woman coming in with pneumonia, sepsis. She has been started on antibiotics with vancomycin and Zosyn. She will receive nebulizers p.r.n. as well as O2 supplemental by nasal cannula. We will continue all her home medications for hypertension, gout, hypothyroidism, and coronary artery disease. Monitor her vital signs closely. Labs will be repeated in the a.m. YARON PAYNE MD DR: Molly JOB#: [id number] / [id number] [place]
[2016-07-31] MEDS ORDERED: GLUCOSAMINE HCL 1500 MG PO SCH (12:00)
[2016-07-31] MEDS: VANCOMYCIN 1.5 GM in IV NORMAL SALINE 500ML BAG 500 ML IV SCH (14:27)
[2016-07-31] MEDS: VANCOMYCIN PER PHARMACY MC PRN (14:44)
[2016-07-31] MEDS: ENOXAPARIN 40 MG/0.4 ML SYRINGE. SQ SCH (16:36)
[2016-07-31] MEDS: PIPERACILLIN/TAZOBACTAM 3.375 GM in IV NORMAL SALINE 50ML 50 ML IV SCH ×2 (17:48→21:36)
[2016-07-31] MEDS: DULOXETINE HCL 30 MG CAPSULE.DR. PO SCH (21:36)
[2016-07-31] MEDS: ALLOPURINOL 100 MG TABLET. PO SCH (21:36)
[2016-08-01 03:35] VITALS: BP 144/57
[2016-08-01 05:01] LABS: BASO # 0.1 x10^3/uL (0.0-0.2); BASO % 1 % (0-3); EOS % 7 % (0-3); HEMATOCRIT 31.5 % (36.0-47.0); HEMOGLOBIN 10.5 g/dL (12.0-15.5); LYMPH # 1.4 x10^3/uL (1.0-4.8); LYMPH % 12 % (24-48); MEAN CORPUSCULAR HEMOGLOBIN 30 pg (25-35); MEAN CORPUSCULAR HGB CONC 33 g/dL (31-37); MEAN CORPUSCULAR VOLUME 89 fL (79-100); MONO % 9 % (0-9); NEUT % 72 % (31-73); PLATELET COUNT 191 x10^3/uL (140-400); RED BLOOD COUNT 3.54 x10^6/uL (3.50-5.40); RED CELL DISTRIBUTION WIDTH 15.6 % (11.5-14.5); WHITE BLOOD COUNT 12.1 x10^3/uL (4.0-11.0)
[2016-08-01 05:20] LABS: CALCIUM 8.6 mg/dL (8.5-10.1); GFR 52.6; POTASSIUM 3.9 mmol/L (3.5-5.1)
[2016-08-01] MEDS: LEVOTHYROXINE 75 MCG TABLET PO SCH (06:14)
[2016-08-01] MEDS: CLOPIDOGREL BISULFATE 75 MG TABLET PO SCH (06:14)
[2016-08-01] MEDS: PIPERACILLIN/TAZOBACTAM 3.375 GM in IV NORMAL SALINE 50ML 50 ML IV SCH ×3 (06:15→18:02)
[2016-08-01 07:50] VITALS: BP 141/48
[2016-08-01] MEDS: LIDOCAINE (700MG/PATCH) PATCH. TP SCH (09:00)
[2016-08-01] MEDS: LOSARTAN POTASSIUM 50 MG TABLET. PO SCH (09:47)
[2016-08-01] MEDS: CETIRIZINE HCL 10 MG TABLET. PO SCH (09:48)
[2016-08-01] MEDS: ASPIRIN 325 MG TABLET PO SCH (09:48)
[2016-08-01] MEDS: AMLODIPINE BESYLATE 5 MG TABLET. PO SCH (09:48)
[2016-08-01] MEDS: OMEGA-3 FATTY ACIDS/FISH OIL 1,000 MG CAPSULE. PO SCH (09:48)
[2016-08-01] MEDS: LACTOBACILLUS ACIDOPH & BULGAR 1 TABLET. PO SCH (09:48)
[2016-08-01] MEDS: PREGABALIN 50 MG CAPSULE PO SCH (09:49)
--- NOTE | 2016-08-01 10:21 | PDOC ---
PROGRESS NOTES Chief Complaint Chief Complaint HCAP ASSESSMENT AND PLAN: 1. Sepsis: resolved. afeb x48h+ BPs recovered. 2. RLL PNA: on Zosyn; could change to PO levaquin 3. CAD, HTN, HLD: no acute issues, cont home meds 4. Hypothyroidism: on synthroid 5. OA, chronic pain: cont home fentanyl patch, oral breakthrough meds 6. Prophylaxis: H2B 7. Dispo: will need rehab most likely. OT/PT eval in AM Vitals Vitals Vital Signs Date Time Temp Pulse Resp B/P Pulse Ox O2 Delivery O2 Flow Rate FiO2 08/01/16 09:48 65 141/48 08/01/16 07:50 99.1 16 92 Nasal Cannula 3.0 99.1 Physical Exam General: Alert, Cooperative, No acute distress Heart: Regular rate Lungs: Clear Abdomen: Normal bowel sounds, Soft, No tenderness Extremities: No edema Skin: No rashes Labs LABS Laboratory Tests Test 08/01/16 04:30 White Blood Count 12.1x10^3/uL (4.0-11.0) Red Blood Count 3.54x10^6/uL (3.50-5.40) Hemoglobin 10.5g/dL (12.0-15.5) Hematocrit 31.5% (36.0-47.0) Mean Corpuscular Volume 89fL (79-100) Mean Corpuscular Hemoglobin 30pg (25-35) Mean Corpuscular Hemoglobin Concent 33g/dL (31-37) Red Cell Distribution Width 15.6% (11.5-14.5) Platelet Count 191x10^3/uL (140-400) Neutrophils (%) (Auto) 72% (31-73) Lymphocytes (%) (Auto) 12% (24-48) Monocytes (%) (Auto) 9% (0-9) Eosinophils (%) (Auto) 7% (0-3) Basophils (%) (Auto) 1% (0-3) Neutrophils # (Auto) 8.7x10^3uL (1.8-7.7) Lymphocytes # (Auto) 1.4x10^3/uL (1.0-4.8) Monocytes # (Auto) 1.1x10^3/uL (0.0-1.1) Eosinophils # (Auto) 0.9x10^3/uL (0.0-0.7) Basophils # (Auto) 0.1x10^3/uL (0.0-0.2) Sodium Level 143mmol/L (136-145) Potassium Level 3.9mmol/L (3.5-5.1) Chloride Level 109mmol/L (98-107) Carbon Dioxide Level 28mmol/L (21-32) Anion Gap 6 (6-14) Blood Urea Nitrogen 22mg/dL (7-20) Creatinine 1.0mg/dL (0.6-1.0) Estimated GFR (Cockcroft-Gault) 52.6 Glucose Level 101mg/dL (70-99) Calcium Level 8.6mg/dL (8.5-10.1) Review of Systems Review of Systems feels stronger, voice is better. mohamud BURNHAM or YARON CHOW MD Aug 01, 2016 10:21
[2016-08-01 11:34] VITALS: BP 130/55
[2016-08-01] MEDS: VANCOMYCIN PER PHARMACY MC PRN (12:23)
[2016-08-01] MEDS: VANCOMYCIN 1.5 GM in IV NORMAL SALINE 500ML BAG 500 ML IV SCH (13:15)
--- NOTE | 2016-08-01 14:35 | PDOC ---
PULMONARY PROGRESS NOTES Subjective PT FEELS BETTER Vitals Vital Signs Date Time Temp Pulse Resp B/P Pulse Ox O2 Delivery O2 Flow Rate FiO2 08/01/16 11:34 98.8 64 16 130/55 92 Nasal Cannula 3.0 98.8 ROS: No Nausea, No Chest Pain, No Abdominal Pain, No Increase Cough General: Short term memory loss, Lungs: Crackles Cardiovascular: S1, S2 Abdomen: Soft Neuro Exam: Alert Extremities: No Edema Skin: Warm Labs Laboratory Tests Test 07/31/16 04:40 08/01/16 04:30 08/01/16 11:20 White Blood Count 14.9x10^3/uL (4.0-11.0) 12.1x10^3/uL (4.0-11.0) Red Blood Count 3.55x10^6/uL (3.50-5.40) 3.54x10^6/uL (3.50-5.40) Hemoglobin 10.4g/dL (12.0-15.5) 10.5g/dL (12.0-15.5) Hematocrit 31.8% (36.0-47.0) 31.5% (36.0-47.0) Mean Corpuscular Volume 90fL (79-100) 89fL (79-100) Mean Corpuscular Hemoglobin 29pg (25-35) 30pg (25-35) Mean Corpuscular Hemoglobin Concent 33g/dL (31-37) 33g/dL (31-37) Red Cell Distribution Width 16.1% (11.5-14.5) 15.6% (11.5-14.5) Platelet Count 182x10^3/uL (140-400) 191x10^3/uL (140-400) Neutrophils (%) (Auto) 72% (31-73) 72% (31-73) Lymphocytes (%) (Auto) 15% (24-48) 12% (24-48) Monocytes (%) (Auto) 9% (0-9) 9% (0-9) Eosinophils (%) (Auto) 4% (0-3) 7% (0-3) Basophils (%) (Auto) 1% (0-3) 1% (0-3) Neutrophils # (Auto) 10.8x10^3uL (1.8-7.7) 8.7x10^3uL (1.8-7.7) Lymphocytes # (Auto) 2.2x10^3/uL (1.0-4.8) 1.4x10^3/uL (1.0-4.8) Monocytes # (Auto) 1.3x10^3/uL (0.0-1.1) 1.1x10^3/uL (0.0-1.1) Eosinophils # (Auto) 0.6x10^3/uL (0.0-0.7) 0.9x10^3/uL (0.0-0.7) Basophils # (Auto) 0.1x10^3/uL (0.0-0.2) 0.1x10^3/uL (0.0-0.2) Sodium Level 139mmol/L (136-145) 143mmol/L (136-145) Potassium Level 3.9mmol/L (3.5-5.1) 3.9mmol/L (3.5-5.1) Chloride Level 104mmol/L (98-107) 109mmol/L (98-107) Carbon Dioxide Level 30mmol/L (21-32) 28mmol/L (21-32) Anion Gap 5 (6-14) 6 (6-14) Blood Urea Nitrogen 26mg/dL (7-20) 22mg/dL (7-20) Creatinine 1.3mg/dL (0.6-1.0) 1.0mg/dL (0.6-1.0) Estimated GFR (Cockcroft-Gault) 38.8 52.6 Glucose Level 103mg/dL (70-99) 101mg/dL (70-99) Calcium Level 8.4mg/dL (8.5-10.1) 8.6mg/dL (8.5-10.1) Vancomycin Level Trough 16.1mcg/mL (10.0-20.0) Vancomycin Last Dose Date 07/31/16 Vancomycin Last Dose Time 1200 Laboratory Tests Test 08/01/16 04:30 08/01/16 11:20 White Blood Count 12.1x10^3/uL (4.0-11.0) Red Blood Count 3.54x10^6/uL (3.50-5.40) Hemoglobin 10.5g/dL (12.0-15.5) Hematocrit 31.5% (36.0-47.0) Mean Corpuscular Volume 89fL (79-100) Mean Corpuscular Hemoglobin 30pg (25-35) Mean Corpuscular Hemoglobin Concent 33g/dL (31-37) Red Cell Distribution Width 15.6% (11.5-14.5) Platelet Count 191x10^3/uL (140-400) Neutrophils (%) (Auto) 72% (31-73) Lymphocytes (%) (Auto) 12% (24-48) Monocytes (%) (Auto) 9% (0-9) Eosinophils (%) (Auto) 7% (0-3) Basophils (%) (Auto) 1% (0-3) Neutrophils # (Auto) 8.7x10^3uL (1.8-7.7) Lymphocytes # (Auto) 1.4x10^3/uL (1.0-4.8) Monocytes # (Auto) 1.1x10^3/uL (0.0-1.1) Eosinophils # (Auto) 0.9x10^3/uL (0.0-0.7) Basophils # (Auto) 0.1x10^3/uL (0.0-0.2) Sodium Level 143mmol/L (136-145) Potassium Level 3.9mmol/L (3.5-5.1) Chloride Level 109mmol/L (98-107) Carbon Dioxide Level 28mmol/L (21-32) Anion Gap 6 (6-14) Blood Urea Nitrogen 22mg/dL (7-20) Creatinine 1.0mg/dL (0.6-1.0) Estimated GFR (Cockcroft-Gault) 52.6 Glucose Level 101mg/dL (70-99) Calcium Level 8.6mg/dL (8.5-10.1) Vancomycin Level Trough 16.1mcg/mL (10.0-20.0) Vancomycin Last Dose Date 07/31/16 Vancomycin Last Dose Time 1200 Medications Active Scripts Medications Dose Route/Sig Days Date Category Cefpodoxime Proxetil 200 Mg Tablet 200 Mg PO BID 09/18/15 Rx Probiotic (Lactobacillus Combo No.11) 1 Each Cap.sprink 1 Each PO DAILY 09/15/15 Reported Cyclobenzaprine Hcl 5 Mg Tablet 5 Mg PO PRN Q6HRS PRN 09/15/15 Reported Cymbalta (Duloxetine Hcl) 60 Mg Capsule.dr 60 Mg PO HS 09/15/15 Reported Claritin (Loratadine) 10 Mg Tablet 1 Tab PO DAILY 09/15/15 Reported Biofreeze (Menthol) 118 Ml Gel..ml. 118 Ml TP BID 09/15/15 Reported Aspirin 325 Mg Tablet 1 Tab PO DAILY 09/15/15 Reported Levothyroxine Sodium 75 Mcg Tablet 1 Tab PO DAILY 09/15/15 Reported Ocuvite Lutein & Zeaxanthin Cp (Vit C/E/Zn/Coppr/Lutein/Zeaxan) 1 Each Capsule 2 Each PO HS 12/25/14 Reported Allopurinol 100 Mg Tablet 1 Tab PO HS 12/25/14 Reported Calcium (Calcium Carbonate) 500 Mg Tablet 1,000 Mg PO DAILYWLUN 12/25/14 Reported Lidoderm (Lidocaine) 700 Mg Adh..patch 2 Patch TP DAILY 12/25/14 Reported Glucosamine Hcl 1,500 Mg Tablet 1,500 Mg PO DAILYWLUN 12/25/14 Reported FENTANYL 75mcg/hr (Fentanyl) 1 Each Patch.td72 1 Patch TD PRN Q48HR PRN 12/25/14 Reported Lyrica (Pregabalin) 150 Mg Capsule 1 Cap PO HS 12/25/14 Reported Lyrica (Pregabalin) 100 Mg Capsule 1 Cap PO DAILY 12/25/14 Reported Protonix (Pantoprazole Sodium) 40 Mg Tablet.dr 1 Tab PO DAILY 12/25/14 Reported Clopidogrel (Clopidogrel Bisulfate) 75 Mg Tablet 1 Tab PO DAILY 12/25/14 Reported Avalide 300-12.5 Mg Tablet (Irbesartan/Hydrochlorothiazide) 1 Each Tablet 1 Each PO DAILY 12/25/14 Reported Vitamin C (Ascorbic Acid) 500 Mg Capsule.er 500 Mg PO HS 12/25/14 Reported Multivitamins (Multivitamin) 1 Each Tablet 1 Tab PO DAILY 12/25/14 Reported Pv Fish Oil 1,000 Mg Softgel ([place]-3 Fatty Acids/Vitamin E) 1,000 Mg Capsule 1 Cap PO DAILY 12/25/14 Reported Hydrocodone-Apap 10-325 (Hydrocodone Bit/Acetaminophen) 1 Each Tablet 1 Tab PO BID PRN 12/25/14 Reported Impression . 1. Fever, suspect secondary to Possible pneumonia/ AND viral syndrome 2. Abnormal x-ray revealing right basilar infiltrate, atelectasis, repeat improved 3. Acute metabolic toxic encephalopathy, improved 4. Leukocytosis. 5. Fibromyalgia. 6. Depression. Plan . ok to d/c home or transfer to [facility], on oral atntibx for 5 days Levaquin d/w daughter 1. Recommend coverage for both gram-negative and gram-positive organisms. 2. Repeat chest x-ray, reviewed no increase infiltrates 3. Follow clinical course and de-escalate the antibiotics once cultures have returned back negative. ARASELI ROWAN MD Aug 01, 2016 14:35
[2016-08-01 15:28] VITALS: BP 135/93
[2016-08-01] MEDS: ENOXAPARIN 40 MG/0.4 ML SYRINGE. SQ SCH (18:03)
[2016-08-01 19:30] VITALS: BP 101/65
[2016-08-01] MEDS: PREGABALIN 75 MG CAPSULE PO SCH (20:19)
[2016-08-01] MEDS: DULOXETINE HCL 30 MG CAPSULE.DR. PO SCH (20:19)
[2016-08-01] MEDS: ALLOPURINOL 100 MG TABLET. PO SCH (20:20)
[2016-08-02] MEDS: ACETAMINOPHEN 325 MG TABLET. PO PRN (01:14)
[2016-08-02 03:52] VITALS: BP 136/58
[2016-08-02 04:48] LABS: BASO # 0.1 x10^3/uL (0.0-0.2); BASO % 1 % (0-3); EOS % 5 % (0-3); HEMATOCRIT 32.1 % (36.0-47.0); HEMOGLOBIN 10.7 g/dL (12.0-15.5); LYMPH # 1.1 x10^3/uL (1.0-4.8); LYMPH % 9 % (24-48); MEAN CORPUSCULAR HEMOGLOBIN 29 pg (25-35); MEAN CORPUSCULAR HGB CONC 33 g/dL (31-37); MEAN CORPUSCULAR VOLUME 88 fL (79-100); MONO % 9 % (0-9); NEUT % 76 % (31-73); PLATELET COUNT 201 x10^3/uL (140-400); RED BLOOD COUNT 3.66 x10^6/uL (3.50-5.40); RED CELL DISTRIBUTION WIDTH 15.6 % (11.5-14.5); WHITE BLOOD COUNT 11.9 x10^3/uL (4.0-11.0)
[2016-08-02 04:59] LABS: CALCIUM 8.8 mg/dL (8.5-10.1); GFR 52.6; POTASSIUM 3.7 mmol/L (3.5-5.1)
[2016-08-02] MEDS: LEVOTHYROXINE 75 MCG TABLET PO SCH (06:14)
[2016-08-02] MEDS: CLOPIDOGREL BISULFATE 75 MG TABLET PO SCH (06:15)
[2016-08-02] MEDS: LEVOFLOXACIN 500 MG TABLET PO SCH (06:15)
[2016-08-02 07:05] VITALS: BP 129/44
[2016-08-02] MEDS: LIDOCAINE (700MG/PATCH) PATCH. TP SCH (09:00)
[2016-08-02] MEDS: PREGABALIN 50 MG CAPSULE PO SCH (09:18)
[2016-08-02] MEDS: ASPIRIN 325 MG TABLET PO SCH (09:18)
[2016-08-02] MEDS: OMEGA-3 FATTY ACIDS/FISH OIL 1,000 MG CAPSULE. PO SCH (09:18)
[2016-08-02] MEDS: AMLODIPINE BESYLATE 5 MG TABLET. PO SCH (09:18)
[2016-08-02] MEDS: HYDROCODONE/APAP 7.5/325MG TABLET. PO PRN ×2 (09:18→20:22)
[2016-08-02] MEDS: LOSARTAN POTASSIUM 50 MG TABLET. PO SCH (09:19)
[2016-08-02] MEDS: CETIRIZINE HCL 10 MG TABLET. PO SCH (09:19)
[2016-08-02] MEDS: LACTOBACILLUS ACIDOPH & BULGAR 1 TABLET. PO SCH (09:19)
--- NOTE | 2016-08-02 09:42 | PDOC ---
PULMONARY PROGRESS NOTES Subjective PT FEELS BETTER Vitals Vital Signs Date Time Temp Pulse Resp B/P Pulse Ox O2 Delivery O2 Flow Rate FiO2 08/02/16 09:19 60 129/44 08/02/16 09:18 19 93 Nasal Cannula 3.0 08/02/16 07:05 98.1 98.1 ROS: No Nausea, No Chest Pain, No Abdominal Pain, No Increase Cough General: Short term memory loss, Lungs: Clear Cardiovascular: S1, S2 Abdomen: Soft Neuro Exam: Alert Extremities: No Edema Skin: Warm Labs Laboratory Tests Test 08/01/16 04:30 08/01/16 11:20 08/02/16 03:50 White Blood Count 12.1x10^3/uL (4.0-11.0) 11.9x10^3/uL (4.0-11.0) Red Blood Count 3.54x10^6/uL (3.50-5.40) 3.66x10^6/uL (3.50-5.40) Hemoglobin 10.5g/dL (12.0-15.5) 10.7g/dL (12.0-15.5) Hematocrit 31.5% (36.0-47.0) 32.1% (36.0-47.0) Mean Corpuscular Volume 89fL (79-100) 88fL (79-100) Mean Corpuscular Hemoglobin 30pg (25-35) 29pg (25-35) Mean Corpuscular Hemoglobin Concent 33g/dL (31-37) 33g/dL (31-37) Red Cell Distribution Width 15.6% (11.5-14.5) 15.6% (11.5-14.5) Platelet Count 191x10^3/uL (140-400) 201x10^3/uL (140-400) Neutrophils (%) (Auto) 72% (31-73) 76% (31-73) Lymphocytes (%) (Auto) 12% (24-48) 9% (24-48) Monocytes (%) (Auto) 9% (0-9) 9% (0-9) Eosinophils (%) (Auto) 7% (0-3) 5% (0-3) Basophils (%) (Auto) 1% (0-3) 1% (0-3) Neutrophils # (Auto) 8.7x10^3uL (1.8-7.7) 9.0x10^3uL (1.8-7.7) Lymphocytes # (Auto) 1.4x10^3/uL (1.0-4.8) 1.1x10^3/uL (1.0-4.8) Monocytes # (Auto) 1.1x10^3/uL (0.0-1.1) 1.1x10^3/uL (0.0-1.1) Eosinophils # (Auto) 0.9x10^3/uL (0.0-0.7) 0.6x10^3/uL (0.0-0.7) Basophils # (Auto) 0.1x10^3/uL (0.0-0.2) 0.1x10^3/uL (0.0-0.2) Sodium Level 143mmol/L (136-145) 142mmol/L (136-145) Potassium Level 3.9mmol/L (3.5-5.1) 3.7mmol/L (3.5-5.1) Chloride Level 109mmol/L (98-107) 106mmol/L (98-107) Carbon Dioxide Level 28mmol/L (21-32) 28mmol/L (21-32) Anion Gap 6 (6-14) 8 (6-14) Blood Urea Nitrogen 22mg/dL (7-20) 15mg/dL (7-20) Creatinine 1.0mg/dL (0.6-1.0) 1.0mg/dL (0.6-1.0) Estimated GFR (Cockcroft-Gault) 52.6 52.6 Glucose Level 101mg/dL (70-99) 96mg/dL (70-99) Calcium Level 8.6mg/dL (8.5-10.1) 8.8mg/dL (8.5-10.1) Vancomycin Level Trough 16.1mcg/mL (10.0-20.0) Vancomycin Last Dose Date 07/31/16 Vancomycin Last Dose Time 1200 Laboratory Tests Test 08/01/16 11:20 08/02/16 03:50 Vancomycin Level Trough 16.1mcg/mL (10.0-20.0) Vancomycin Last Dose Date 07/31/16 Vancomycin Last Dose Time 1200 White Blood Count 11.9x10^3/uL (4.0-11.0) Red Blood Count 3.66x10^6/uL (3.50-5.40) Hemoglobin 10.7g/dL (12.0-15.5) Hematocrit 32.1% (36.0-47.0) Mean Corpuscular Volume 88fL (79-100) Mean Corpuscular Hemoglobin 29pg (25-35) Mean Corpuscular Hemoglobin Concent 33g/dL (31-37) Red Cell Distribution Width 15.6% (11.5-14.5) Platelet Count 201x10^3/uL (140-400) Neutrophils (%) (Auto) 76% (31-73) Lymphocytes (%) (Auto) 9% (24-48) Monocytes (%) (Auto) 9% (0-9) Eosinophils (%) (Auto) 5% (0-3) Basophils (%) (Auto) 1% (0-3) Neutrophils # (Auto) 9.0x10^3uL (1.8-7.7) Lymphocytes # (Auto) 1.1x10^3/uL (1.0-4.8) Monocytes # (Auto) 1.1x10^3/uL (0.0-1.1) Eosinophils # (Auto) 0.6x10^3/uL (0.0-0.7) Basophils # (Auto) 0.1x10^3/uL (0.0-0.2) Sodium Level 142mmol/L (136-145) Potassium Level 3.7mmol/L (3.5-5.1) Chloride Level 106mmol/L (98-107) Carbon Dioxide Level 28mmol/L (21-32) Anion Gap 8 (6-14) Blood Urea Nitrogen 15mg/dL (7-20) Creatinine 1.0mg/dL (0.6-1.0) Estimated GFR (Cockcroft-Gault) 52.6 Glucose Level 96mg/dL (70-99) Calcium Level 8.8mg/dL (8.5-10.1) Medications Active Scripts Medications Dose Route/Sig Days Date Category Cefpodoxime Proxetil 200 Mg Tablet 200 Mg PO BID 09/18/15 Rx Probiotic (Lactobacillus Combo No.11) 1 Each Cap.sprink 1 Each PO DAILY 09/15/15 Reported Cyclobenzaprine Hcl 5 Mg Tablet 5 Mg PO PRN Q6HRS PRN 09/15/15 Reported Cymbalta (Duloxetine Hcl) 60 Mg Capsule.dr 60 Mg PO HS 09/15/15 Reported Claritin (Loratadine) 10 Mg Tablet 1 Tab PO DAILY 09/15/15 Reported Biofreeze (Menthol) 118 Ml Gel..ml. 118 Ml TP BID 09/15/15 Reported Aspirin 325 Mg Tablet 1 Tab PO DAILY 09/15/15 Reported Levothyroxine Sodium 75 Mcg Tablet 1 Tab PO DAILY 09/15/15 Reported Ocuvite Lutein & Zeaxanthin Cp (Vit C/E/Zn/Coppr/Lutein/Zeaxan) 1 Each Capsule 2 Each PO HS 12/25/14 Reported Allopurinol 100 Mg Tablet 1 Tab PO HS 12/25/14 Reported Calcium (Calcium Carbonate) 500 Mg Tablet 1,000 Mg PO DAILYWLUN 12/25/14 Reported Lidoderm (Lidocaine) 700 Mg Adh..patch 2 Patch TP DAILY 12/25/14 Reported Glucosamine Hcl 1,500 Mg Tablet 1,500 Mg PO DAILYWLUN 12/25/14 Reported FENTANYL 75mcg/hr (Fentanyl) 1 Each Patch.td72 1 Patch TD PRN Q48HR PRN 12/25/14 Reported Lyrica (Pregabalin) 150 Mg Capsule 1 Cap PO HS 12/25/14 Reported Lyrica (Pregabalin) 100 Mg Capsule 1 Cap PO DAILY 12/25/14 Reported Protonix (Pantoprazole Sodium) 40 Mg Tablet.dr 1 Tab PO DAILY 12/25/14 Reported Clopidogrel (Clopidogrel Bisulfate) 75 Mg Tablet 1 Tab PO DAILY 12/25/14 Reported Avalide 300-12.5 Mg Tablet (Irbesartan/Hydrochlorothiazide) 1 Each Tablet 1 Each PO DAILY 12/25/14 Reported Vitamin C (Ascorbic Acid) 500 Mg Capsule.er 500 Mg PO HS 12/25/14 Reported Multivitamins (Multivitamin) 1 Each Tablet 1 Tab PO DAILY 12/25/14 Reported Pv Fish Oil 1,000 Mg Softgel (Melvin-3 Fatty Acids/Vitamin E) 1,000 Mg Capsule 1 Cap PO DAILY 12/25/14 Reported Hydrocodone-Apap 10-325 (Hydrocodone Bit/Acetaminophen) 1 Each Tablet 1 Tab PO BID PRN 12/25/14 Reported Impression . 1. Fever, suspect secondary to Possible pneumonia/ AND viral syndrome 2. Abnormal x-ray revealing right basilar infiltrate, atelectasis, repeat improved 3. Acute metabolic toxic encephalopathy, improved 4. Leukocytosis. 5. Fibromyalgia. 6. Depression. Plan . ok to transfer to [facility], AM on oral Antibx for 5 days Levaquin d/w daughter yesterday ARASELI ROWAN MD Aug 02, 2016 09:42
[2016-08-02 11:39] VITALS: BP 146/55
[2016-08-02] MEDS: VANCOMYCIN 1.5 GM in IV NORMAL SALINE 500ML BAG 500 ML IV SCH (12:00)
--- NOTE | 2016-08-02 13:05 | PDOC ---
PROGRESS NOTES Chief Complaint Chief Complaint HCAP ASSESSMENT AND PLAN: 1. Sepsis 2/2 2 2. RLL PNA 3. CAD, HTN, HLD 4. Hypothyroidism 5. OA, chronic pain plan: fu with pulm from assisted living facility PTOT dc avani levyjose juan, on levaquin po now add cough meds dvt, gi ppx dc tmr History of Present Illness History of Present Illness pt feels very weak, has not got out of bed inthe past 3 days still cough T 99.7 last night Vitals Vitals Vital Signs Date Time Temp Pulse Resp B/P Pulse Ox O2 Delivery O2 Flow Rate FiO2 08/02/16 11:39 98.1 63 16 146/55 97 Nasal Cannula 3.0 98.1 Physical Exam General: Alert, Cooperative, No acute distress Heart: Regular rate Lungs: Clear Abdomen: Normal bowel sounds, Soft, No tenderness Extremities: No edema Skin: No rashes Labs LABS Laboratory Tests Test 08/02/16 03:50 White Blood Count 11.9x10^3/uL (4.0-11.0) Red Blood Count 3.66x10^6/uL (3.50-5.40) Hemoglobin 10.7g/dL (12.0-15.5) Hematocrit 32.1% (36.0-47.0) Mean Corpuscular Volume 88fL (79-100) Mean Corpuscular Hemoglobin 29pg (25-35) Mean Corpuscular Hemoglobin Concent 33g/dL (31-37) Red Cell Distribution Width 15.6% (11.5-14.5) Platelet Count 201x10^3/uL (140-400) Neutrophils (%) (Auto) 76% (31-73) Lymphocytes (%) (Auto) 9% (24-48) Monocytes (%) (Auto) 9% (0-9) Eosinophils (%) (Auto) 5% (0-3) Basophils (%) (Auto) 1% (0-3) Neutrophils # (Auto) 9.0x10^3uL (1.8-7.7) Lymphocytes # (Auto) 1.1x10^3/uL (1.0-4.8) Monocytes # (Auto) 1.1x10^3/uL (0.0-1.1) Eosinophils # (Auto) 0.6x10^3/uL (0.0-0.7) Basophils # (Auto) 0.1x10^3/uL (0.0-0.2) Sodium Level 142mmol/L (136-145) Potassium Level 3.7mmol/L (3.5-5.1) Chloride Level 106mmol/L (98-107) Carbon Dioxide Level 28mmol/L (21-32) Anion Gap 8 (6-14) Blood Urea Nitrogen 15mg/dL (7-20) Creatinine 1.0mg/dL (0.6-1.0) Estimated GFR (Cockcroft-Gault) 52.6 Glucose Level 96mg/dL (70-99) Calcium Level 8.8mg/dL (8.5-10.1) Review of Systems Review of Systems no chills, chest pain Assessment and Plan Assessmemt and Plan Problems Medical Problems: (1) Fever Status: Acute (2) Healthcare-associated pneumonia Status: Acute (3) Leukocytosis Status: Acute (4) Sepsis Status: Acute Problems: Comment Review of Relevant I have reviewed the following items poornima (where applicable) has been applied. Labs Laboratory Tests Test 08/01/16 04:30 08/01/16 11:20 08/02/16 03:50 White Blood Count 12.1x10^3/uL (4.0-11.0) 11.9x10^3/uL (4.0-11.0) Red Blood Count 3.54x10^6/uL (3.50-5.40) 3.66x10^6/uL (3.50-5.40) Hemoglobin 10.5g/dL (12.0-15.5) 10.7g/dL (12.0-15.5) Hematocrit 31.5% (36.0-47.0) 32.1% (36.0-47.0) Mean Corpuscular Volume 89fL (79-100) 88fL (79-100) Mean Corpuscular Hemoglobin 30pg (25-35) 29pg (25-35) Mean Corpuscular Hemoglobin Concent 33g/dL (31-37) 33g/dL (31-37) Red Cell Distribution Width 15.6% (11.5-14.5) 15.6% (11.5-14.5) Platelet Count 191x10^3/uL (140-400) 201x10^3/uL (140-400) Neutrophils (%) (Auto) 72% (31-73) 76% (31-73) Lymphocytes (%) (Auto) 12% (24-48) 9% (24-48) Monocytes (%) (Auto) 9% (0-9) 9% (0-9) Eosinophils (%) (Auto) 7% (0-3) 5% (0-3) Basophils (%) (Auto) 1% (0-3) 1% (0-3) Neutrophils # (Auto) 8.7x10^3uL (1.8-7.7) 9.0x10^3uL (1.8-7.7) Lymphocytes # (Auto) 1.4x10^3/uL (1.0-4.8) 1.1x10^3/uL (1.0-4.8) Monocytes # (Auto) 1.1x10^3/uL (0.0-1.1) 1.1x10^3/uL (0.0-1.1) Eosinophils # (Auto) 0.9x10^3/uL (0.0-0.7) 0.6x10^3/uL (0.0-0.7) Basophils # (Auto) 0.1x10^3/uL (0.0-0.2) 0.1x10^3/uL (0.0-0.2) Sodium Level 143mmol/L (136-145) 142mmol/L (136-145) Potassium Level 3.9mmol/L (3.5-5.1) 3.7mmol/L (3.5-5.1) Chloride Level 109mmol/L (98-107) 106mmol/L (98-107) Carbon Dioxide Level 28mmol/L (21-32) 28mmol/L (21-32) Anion Gap 6 (6-14) 8 (6-14) Blood Urea Nitrogen 22mg/dL (7-20) 15mg/dL (7-20) Creatinine 1.0mg/dL (0.6-1.0) 1.0mg/dL (0.6-1.0) Estimated GFR (Cockcroft-Gault) 52.6 52.6 Glucose Level 101mg/dL (70-99) 96mg/dL (70-99) Calcium Level 8.6mg/dL (8.5-10.1) 8.8mg/dL (8.5-10.1) Vancomycin Level Trough 16.1mcg/mL (10.0-20.0) Vancomycin Last Dose Date 07/31/16 Vancomycin Last Dose Time 1200 Laboratory Tests Test 08/02/16 03:50 White Blood Count 11.9x10^3/uL (4.0-11.0) Red Blood Count 3.66x10^6/uL (3.50-5.40) Hemoglobin 10.7g/dL (12.0-15.5) Hematocrit 32.1% (36.0-47.0) Mean Corpuscular Volume 88fL (79-100) Mean Corpuscular Hemoglobin 29pg (25-35) Mean Corpuscular Hemoglobin Concent 33g/dL (31-37) Red Cell Distribution Width 15.6% (11.5-14.5) Platelet Count 201x10^3/uL (140-400) Neutrophils (%) (Auto) 76% (31-73) Lymphocytes (%) (Auto) 9% (24-48) Monocytes (%) (Auto) 9% (0-9) Eosinophils (%) (Auto) 5% (0-3) Basophils (%) (Auto) 1% (0-3) Neutrophils # (Auto) 9.0x10^3uL (1.8-7.7) Lymphocytes # (Auto) 1.1x10^3/uL (1.0-4.8) Monocytes # (Auto) 1.1x10^3/uL (0.0-1.1) Eosinophils # (Auto) 0.6x10^3/uL (0.0-0.7) Basophils # (Auto) 0.1x10^3/uL (0.0-0.2) Sodium Level 142mmol/L (136-145) Potassium Level 3.7mmol/L (3.5-5.1) Chloride Level 106mmol/L (98-107) Carbon Dioxide Level 28mmol/L (21-32) Anion Gap 8 (6-14) Blood Urea Nitrogen 15mg/dL (7-20) Creatinine 1.0mg/dL (0.6-1.0) Estimated GFR (Cockcroft-Gault) 52.6 Glucose Level 96mg/dL (70-99) Calcium Level 8.8mg/dL (8.5-10.1) Microbiology 07/30/16 Blood Culture - Preliminary, Resulted NO GROWTH AFTER 3 DAYS Medications Current Medications Acetaminophen (Tylenol) 650 mg 1X ONCE AK ; Start 07/30/16 at 08:30; Stop 07/30 at 08:31; Status Cancel Acetaminophen 650 mg 650 mg 1X ONCE AK Last administered on 07/30/16 09:05; Start 07/30/16 at 08:30; Stop 07/30/16 at 08:43; Status DC Sodium Chloride (Iv Sodium Chloride 0.9% 1000ml Bag) ml @ 500 mls/hr Q0M IV Last administered on 07/30/16 10:30; Start 07/30/16 at 09:07; Stop 07/30/16 at 15:37; Status DC Vancomycin HCl (Vanco Per Pharmacy) 1 each PRN DAILY PRN MC SEE COMMENTS Last administered on 08/01/16 12:23; Start 07/30/16 at 09:15 Piperacillin Sod/ Tazobactam Sod (Zosyn Per Pharmacy) 1 each PRN DAILY PRN MC SEE COMMENTS; Start 07/30/16 at 09:15 Levofloxacin/ Dextrose 1 each 1 each PRN DAILY PRN MC SEE COMMENTS; Start 07/30 at 09:15; Stop 08/01/16 at 19:28; Status DC Vancomycin HCl 2 gm/Sodium Chloride 500 ml @ 250 mls/hr 1X ONCE IV Last administered on 07/30/16 12:17; Start 07/30/16 at 09:30; Stop 07/30/16 at 11:29 ; Status DC Levofloxacin/ Dextrose 150 ml @ 100 mls/hr Q48H IV Last administered on 09:49; Start 07/30/16 at 10:00; Stop 08/01/16 at 19:18; Status DC Piperacillin Sod/ Tazobactam Sod/ Sodium Chloride (Zosyn/Iv Sodium Chloride 0.9 % 100ml) 100 ml @ 200 mls/hr Q6HRS IV Last administered on 07/31/16 12:49; Start 07/30/16 at 09:30; Stop 07/31/16 at 14:41; Status DC Ondansetron HCl (Zofran) 4 mg PRN Q8HRS PRN IV NAUSEA/VOMITING; Start 07/30/16 at 10:45; Stop 07/31/16 at 10:44; Status DC Fentanyl Citrate (Fentanyl 2ml Vial) 25 mcg PRN Q2HR PRN IV PAIN; Start at 10:45; Stop 07/31/16 at 10:44; Status DC Acetaminophen 650 mg 650 mg PRN Q4HRS PRN PO FEVER; Start 07/30/16 at 10:45; Stop 07/31/16 at 10:44; Status DC Vancomycin HCl/ Sodium Chloride (Iv Sodium Chloride 0.9% 500ml Bag) 500 ml @ 250 mls/hr Q24H IV Last administered on 08/01/16 13:15; Start 07/31/16 at 12:00 Vancomycin HCl 1 each 1X ONCE MC Last administered on 08/01/16 11:30; Start at 11:30; Stop 08/01/16 at 11:31; Status DC Enoxaparin Sodium (Lovenox 40mg Syringe) 40 mg DAILY16 SQ Last administered on 08/01/16 18:03; Start 07/30/16 at 16:00 Albuterol Sulfate (Ventolin Neb Soln) 2.5 mg PRN Q2HR PRN NEB DYSPNEA Last administered on 07/30/16 15:54; Start 07/30/16 at 13:45 Allopurinol (Zyloprim) 100 mg HS PO Last administered on 08/01/16 20:20; Start 07/30/16 at 21:00 Aspirin (Gene Aspirin) 325 mg DAILY PO Last administered on 08/02/16 09:18; Start 07/30/16 at 17:00 Clopidogrel Bisulfate (Plavix) 75 mg DAILY07 PO Last administered on 08/02/16 06:15; Start 07/30/16 at 17:00 Fentanyl (Duragesic 75mcg/ Hr Patch) 1 patch PRN Q48HR PRN TD PAIN; Start 07/30 at 17:00; Stop 07/31/16 at 08:37; Status DC Levothyroxine Sodium (Synthroid) 75 mcg DAILY07 PO Last administered on 06:14; Start 07/30/16 at 17:00 Lidocaine (Lidoderm) 2 patch DAILY TP ; Start 07/30/16 at 17:00 Fish Oil (Fish Oil) 1,000 mg DAILY PO Last administered on 08/02/16 09:18; Start 07/30/16 at 17:00 Duloxetine HCl (Cymbalta) 60 mg QHS PO Last administered on 08/01/16 20:19; Start 07/30/16 at 21:00 Non-Formulary Medication 1,500 mg DAILYWLUN PO supplement; Start 07/31/16 at 12: 00; Status UNV Lactobacillus Acidophilus (Bacid, [place]-Bid) 1 tab DAILY PO Last administered on 08/02/16 09:19; Start 07/30/16 at 17:30 Cetirizine HCl (Zyrtec) 10 mg DAILY PO Last administered on 08/02/16 09:19; Start 07/30/16 at 17:30 Multi-Ingredient Ointment (Analgesic [place]) 1 naun PRN QID PRN TP MUSCLE PAIN; Start 07/30/16 at 17:15 Pregabalin (Lyrica) 100 mg DAILY PO Last administered on 08/02/16 09:18; Start 07/31/16 at 09:00 Pregabalin (Lyrica) 150 mg QHS PO Last administered on 08/01/16 20:19; Start at 21:00 Acetaminophen (Tylenol) 650 mg PRN Q6HRS PRN PO PAIN Last administered on 01:14; Start 07/30/16 at 16:45 Amlodipine Besylate (Norvasc) 5 mg DAILY PO Last administered on 08/02/16 09:18 ; Start 07/30/16 at 17:00 Losartan Potassium (Cozaar) 100 mg DAILY PO Last administered on 07/31/16 08:22 ; Start 07/30/16 at 17:00; Stop 07/31/16 at 13:32; Status DC Bisacodyl (Dulcolax Supp) 10 mg PRN DAILY PRN AK CONSTIPATION; Start 07/30/16 at 17:00 Acetaminophen/ Hydrocodone Bitart (Lortab 7.5/325) 1 tab PRN Q8HRS PRN PO PAIN Last administered on 08/02/16 09:18; Start 07/30/16 at 17:00 Polyethylene Glycol (miraLAX PACKET) 17 gm PRN DAILY PRN PO CONSTIPATION; Start 07/30/16 at 17:00 Losartan Potassium (Cozaar) 50 mg STK-MED ONCE .ROUTE ; Start 07/31/16 at 08:18; Stop 07/31/16 at 08:19; Status DC Fentanyl (Duragesic 75mcg/ Hr Patch) 1 patch PRN Q48HR PRN TD PAIN Last administered on 07/31/16 09:34; Start 07/31/16 at 08:45 Losartan Potassium 100 mg 100 mg DAILY PO Last administered on 08/02/16 09:19; Start 08/01/16 at 09:00 Piperacillin Sod/ Tazobactam Sod/ Sodium Chloride (Zosyn/Iv Sodium Chloride 0.9 % 50ml) 50 ml @ 100 mls/hr Q6HRS IV Last administered on 08/01/16 18:02; Start 07/31/16 at 18:00; Stop 08/01/16 at 19:18; Status DC Levofloxacin (Levaquin) 500 mg DAILY06 PO Last administered on 08/02/16 06:15; Start 08/02/16 at 06:00 Active Scripts Active Cefpodoxime Proxetil 200 Mg Tablet 200 Mg PO BID Reported Cozaar (Losartan Potassium) 100 Mg Tablet 100 Mg PO DAILY Amlodipine Besylate 5 Mg Tablet 5 Mg PO DAILY Acetaminophen 325 Mg Tablet 650 Mg PO PRN Q6HRS PRN Probiotic (Lactobacillus Combo No.11) 1 Each Cap.sprink 1 Each PO DAILY Cyclobenzaprine Hcl 5 Mg Tablet 5 Mg PO PRN Q6HRS PRN Cymbalta (Duloxetine Hcl) 60 Mg Capsule.dr 60 Mg PO HS Claritin (Loratadine) 10 Mg Tablet 1 Tab PO DAILY Biofreeze (Menthol) 118 Ml Gel..ml. 118 Ml TP BID Aspirin 325 Mg Tablet 1 Tab PO DAILY Levothyroxine Sodium 75 Mcg Tablet 1 Tab PO DAILY Ocuvite Lutein & Zeaxanthin Cp (Vit C/E/Zn/Coppr/Lutein/Zeaxan) 1 Each Capsule 2 Each PO HS Allopurinol 100 Mg Tablet 1 Tab PO HS Calcium (Calcium Carbonate) 500 Mg Tablet 1,000 Mg PO DAILYWLUN Lidoderm (Lidocaine) 700 Mg Adh..patch 2 Patch TP DAILY Glucosamine Hcl 1,500 Mg Tablet 1,500 Mg PO DAILYWLUN FENTANYL 75mcg/hr (Fentanyl) 1 Each Patch.td72 1 Patch TD PRN Q48HR PRN Lyrica (Pregabalin) 150 Mg Capsule 1 Cap PO HS Lyrica (Pregabalin) 100 Mg Capsule 1 Cap PO DAILY Protonix (Pantoprazole Sodium) 40 Mg Tablet.dr 1 Tab PO DAILY Clopidogrel (Clopidogrel Bisulfate) 75 Mg Tablet 1 Tab PO DAILY Avalide 300-12.5 Mg Tablet (Irbesartan/Hydrochlorothiazide) 1 Each Tablet 1 Each PO DAILY Vitamin C (Ascorbic Acid) 500 Mg Capsule.er 500 Mg PO HS Multivitamins (Multivitamin) 1 Each Tablet 1 Tab PO DAILY Pv Fish Oil 1,000 Mg Softgel ([place]-3 Fatty Acids/Vitamin E) 1,000 Mg Capsule 1 Cap PO DAILY Hydrocodone-Apap 10-325 (Hydrocodone Bit/Acetaminophen) 1 Each Tablet 1 Tab PO BID PRN Vitals/I & O Vital Sign - Last 24 Hours 08/01/16 08/01/16 08/01/16 08/02/16 15:28 19:30 20:00 03:52 Temp 98.8 98.1 99.7 98.8 98.1 99.7 Pulse 57 63 77 Resp 16 20 16 B/P 135/93 101/65 136/58 Pulse Ox 93 92 90 O2 Delivery Nasal Cannula Nasal Cannula Nasal Cannula Nasal Cannula O2 Flow Rate 3.0 3.0 2.0 3.0 08/02/16 08/02/16 08/02/16 08/02/16 07:05 08:00 09:18 09:18 Temp 98.1 98.1 Pulse 60 60 Resp 16 19 B/P 129/44 129/44 Pulse Ox 93 93 O2 Delivery Nasal Cannula Nasal Cannula Nasal Cannula O2 Flow Rate 3.0 2.0 3.0 08/02/16 08/02/16 08/02/16 09:19 10:18 11:39 Temp 98.1 98.1 Pulse 60 63 Resp 18 16 B/P 129/44 146/55 Pulse Ox 97 97 O2 Delivery Nasal Cannula Nasal Cannula O2 Flow Rate 3.0 3.0 Intake and Output 08/01/16 08/01/16 08/02/16 15:00 23:00 07:00 Intake Total 250 ml 1000 ml 100 ml Balance 250 ml 1000 ml 100 ml MALLIKA COTO MD Aug 02, 2016 13:05
[2016-08-02] MEDS ORDERED: GUAIFENESIN/CODEINE 100mg/10mg 5 ML LIQUID. PO PRN (13:15)
[2016-08-02] MEDS: GUAIFENESIN ER 600 MG TABLET.ER PO SCH ×2 (13:19→20:22)
[2016-08-02 15:49] VITALS: BP 135/85
[2016-08-02] MEDS: ENOXAPARIN 40 MG/0.4 ML SYRINGE. SQ SCH (16:59)
[2016-08-02 19:55] VITALS: BP 152/54
[2016-08-02] MEDS: ALLOPURINOL 100 MG TABLET. PO SCH (20:22)
[2016-08-02] MEDS: DULOXETINE HCL 30 MG CAPSULE.DR. PO SCH (20:22)
[2016-08-02] MEDS: PREGABALIN 75 MG CAPSULE PO SCH (20:23)
[2016-08-02 23:00] VITALS: BP 148/59
[2016-08-03 03:00] VITALS: BP 138/56
[2016-08-03 05:04] LABS: BASO # 0.1 x10^3/uL (0.0-0.2); BASO % 1 % (0-3); EOS % 8 % (0-3); HEMATOCRIT 31.7 % (36.0-47.0); HEMOGLOBIN 10.5 g/dL (12.0-15.5); LYMPH # 1.7 x10^3/uL (1.0-4.8); LYMPH % 21 % (24-48); MEAN CORPUSCULAR HEMOGLOBIN 29 pg (25-35); MEAN CORPUSCULAR HGB CONC 33 g/dL (31-37); MEAN CORPUSCULAR VOLUME 89 fL (79-100); MONO % 12 % (0-9); NEUT % 58 % (31-73); PLATELET COUNT 208 x10^3/uL (140-400); RED BLOOD COUNT 3.58 x10^6/uL (3.50-5.40); RED CELL DISTRIBUTION WIDTH 15.4 % (11.5-14.5); WHITE BLOOD COUNT 8.3 x10^3/uL (4.0-11.0)
[2016-08-03 05:47] LABS: CREATININE 0.8 mg/dL (0.6-1.0); POTASSIUM 3.6 mmol/L (3.5-5.1)
[2016-08-03] MEDS: LEVOTHYROXINE 75 MCG TABLET PO SCH (06:10)
[2016-08-03] MEDS: CLOPIDOGREL BISULFATE 75 MG TABLET PO SCH (06:10)
[2016-08-03] MEDS: LEVOFLOXACIN 500 MG TABLET PO SCH (06:10)
[2016-08-03 07:00] VITALS: BP 171/65
--- NOTE | 2016-08-03 08:57 | PDOC ---
PULMONARY PROGRESS NOTES Subjective PT FEELS BETTER Vitals Vital Signs Date Time Temp Pulse Resp B/P Pulse Ox O2 Delivery O2 Flow Rate FiO2 08/03/16 07:00 99.0 64 18 171/65 93 Nasal Cannula 2.0 99.0 ROS: No Nausea, No Chest Pain, No Abdominal Pain, No Increase Cough General: Short term memory loss, Lungs: Clear Cardiovascular: S1, S2 Abdomen: Soft Neuro Exam: Alert Extremities: No Edema Skin: Warm Labs Laboratory Tests Test 08/01/16 11:20 08/02/16 03:50 08/03/16 04:12 Vancomycin Level Trough 16.1mcg/mL (10.0-20.0) Vancomycin Last Dose Date 07/31/16 Vancomycin Last Dose Time 1200 White Blood Count 11.9x10^3/uL (4.0-11.0) 8.3x10^3/uL (4.0-11.0) Red Blood Count 3.66x10^6/uL (3.50-5.40) 3.58x10^6/uL (3.50-5.40) Hemoglobin 10.7g/dL (12.0-15.5) 10.5g/dL (12.0-15.5) Hematocrit 32.1% (36.0-47.0) 31.7% (36.0-47.0) Mean Corpuscular Volume 88fL (79-100) 89fL (79-100) Mean Corpuscular Hemoglobin 29pg (25-35) 29pg (25-35) Mean Corpuscular Hemoglobin Concent 33g/dL (31-37) 33g/dL (31-37) Red Cell Distribution Width 15.6% (11.5-14.5) 15.4% (11.5-14.5) Platelet Count 201x10^3/uL (140-400) 208x10^3/uL (140-400) Neutrophils (%) (Auto) 76% (31-73) 58% (31-73) Lymphocytes (%) (Auto) 9% (24-48) 21% (24-48) Monocytes (%) (Auto) 9% (0-9) 12% (0-9) Eosinophils (%) (Auto) 5% (0-3) 8% (0-3) Basophils (%) (Auto) 1% (0-3) 1% (0-3) Neutrophils # (Auto) 9.0x10^3uL (1.8-7.7) 4.7x10^3uL (1.8-7.7) Lymphocytes # (Auto) 1.1x10^3/uL (1.0-4.8) 1.7x10^3/uL (1.0-4.8) Monocytes # (Auto) 1.1x10^3/uL (0.0-1.1) 1.0x10^3/uL (0.0-1.1) Eosinophils # (Auto) 0.6x10^3/uL (0.0-0.7) 0.7x10^3/uL (0.0-0.7) Basophils # (Auto) 0.1x10^3/uL (0.0-0.2) 0.1x10^3/uL (0.0-0.2) Sodium Level 142mmol/L (136-145) 144mmol/L (136-145) Potassium Level 3.7mmol/L (3.5-5.1) 3.6mmol/L (3.5-5.1) Chloride Level 106mmol/L (98-107) 106mmol/L (98-107) Carbon Dioxide Level 28mmol/L (21-32) 31mmol/L (21-32) Anion Gap 8 (6-14) 7 (6-14) Blood Urea Nitrogen 15mg/dL (7-20) 17mg/dL (7-20) Creatinine 1.0mg/dL (0.6-1.0) 0.8mg/dL (0.6-1.0) Estimated GFR (Cockcroft-Gault) 52.6 68.0 Glucose Level 96mg/dL (70-99) 88mg/dL (70-99) Calcium Level 8.8mg/dL (8.5-10.1) 9.0mg/dL (8.5-10.1) Laboratory Tests Test 08/03/16 04:12 White Blood Count 8.3x10^3/uL (4.0-11.0) Red Blood Count 3.58x10^6/uL (3.50-5.40) Hemoglobin 10.5g/dL (12.0-15.5) Hematocrit 31.7% (36.0-47.0) Mean Corpuscular Volume 89fL (79-100) Mean Corpuscular Hemoglobin 29pg (25-35) Mean Corpuscular Hemoglobin Concent 33g/dL (31-37) Red Cell Distribution Width 15.4% (11.5-14.5) Platelet Count 208x10^3/uL (140-400) Neutrophils (%) (Auto) 58% (31-73) Lymphocytes (%) (Auto) 21% (24-48) Monocytes (%) (Auto) 12% (0-9) Eosinophils (%) (Auto) 8% (0-3) Basophils (%) (Auto) 1% (0-3) Neutrophils # (Auto) 4.7x10^3uL (1.8-7.7) Lymphocytes # (Auto) 1.7x10^3/uL (1.0-4.8) Monocytes # (Auto) 1.0x10^3/uL (0.0-1.1) Eosinophils # (Auto) 0.7x10^3/uL (0.0-0.7) Basophils # (Auto) 0.1x10^3/uL (0.0-0.2) Sodium Level 144mmol/L (136-145) Potassium Level 3.6mmol/L (3.5-5.1) Chloride Level 106mmol/L (98-107) Carbon Dioxide Level 31mmol/L (21-32) Anion Gap 7 (6-14) Blood Urea Nitrogen 17mg/dL (7-20) Creatinine 0.8mg/dL (0.6-1.0) Estimated GFR (Cockcroft-Gault) 68.0 Glucose Level 88mg/dL (70-99) Calcium Level 9.0mg/dL (8.5-10.1) Medications Active Scripts Medications Dose Route/Sig Days Date Category Cefpodoxime Proxetil 200 Mg Tablet 200 Mg PO BID 09/18/15 Rx Probiotic (Lactobacillus Combo No.11) 1 Each Cap.sprink 1 Each PO DAILY 09/15/15 Reported Cyclobenzaprine Hcl 5 Mg Tablet 5 Mg PO PRN Q6HRS PRN 09/15/15 Reported Cymbalta (Duloxetine Hcl) 60 Mg Capsule.dr 60 Mg PO HS 09/15/15 Reported Claritin (Loratadine) 10 Mg Tablet 1 Tab PO DAILY 09/15/15 Reported Biofreeze (Menthol) 118 Ml Gel..ml. 118 Ml TP BID 09/15/15 Reported Aspirin 325 Mg Tablet 1 Tab PO DAILY 09/15/15 Reported Levothyroxine Sodium 75 Mcg Tablet 1 Tab PO DAILY 09/15/15 Reported Ocuvite Lutein & Zeaxanthin Cp (Vit C/E/Zn/Coppr/Lutein/Zeaxan) 1 Each Capsule 2 Each PO HS 12/25/14 Reported Allopurinol 100 Mg Tablet 1 Tab PO HS 12/25/14 Reported Calcium (Calcium Carbonate) 500 Mg Tablet 1,000 Mg PO DAILYWLUN 12/25/14 Reported Lidoderm (Lidocaine) 700 Mg Adh..patch 2 Patch TP DAILY 12/25/14 Reported Glucosamine Hcl 1,500 Mg Tablet 1,500 Mg PO DAILYWLUN 12/25/14 Reported FENTANYL 75mcg/hr (Fentanyl) 1 Each Patch.td72 1 Patch TD PRN Q48HR PRN 12/25/14 Reported Lyrica (Pregabalin) 150 Mg Capsule 1 Cap PO HS 12/25/14 Reported Lyrica (Pregabalin) 100 Mg Capsule 1 Cap PO DAILY 12/25/14 Reported Protonix (Pantoprazole Sodium) 40 Mg Tablet.dr 1 Tab PO DAILY 12/25/14 Reported Clopidogrel (Clopidogrel Bisulfate) 75 Mg Tablet 1 Tab PO DAILY 12/25/14 Reported Avalide 300-12.5 Mg Tablet (Irbesartan/Hydrochlorothiazide) 1 Each Tablet 1 Each PO DAILY 12/25/14 Reported Vitamin C (Ascorbic Acid) 500 Mg Capsule.er 500 Mg PO HS 12/25/14 Reported Multivitamins (Multivitamin) 1 Each Tablet 1 Tab PO DAILY 12/25/14 Reported Pv Fish Oil 1,000 Mg Softgel ([place]-3 Fatty Acids/Vitamin E) 1,000 Mg Capsule 1 Cap PO DAILY 12/25/14 Reported Hydrocodone-Apap 10-325 (Hydrocodone Bit/Acetaminophen) 1 Each Tablet 1 Tab PO BID PRN 12/25/14 Reported Impression . 1. Fever, suspect secondary to Possible pneumonia/ AND viral syndrome, resolved 2. Abnormal x-ray revealing right basilar infiltrate, atelectasis, repeat improved 3. Acute metabolic toxic encephalopathy, improved 4. Leukocytosis. 5. Fibromyalgia. 6. Depression. Plan . ok to transfer to snu, on oral Antibx/levaquin for 5 days oxygen 2 litres RADHA PERKINS MD Aug 03, 2016 08:57
[2016-08-03] MEDS: LIDOCAINE (700MG/PATCH) PATCH. TP SCH (09:00)
[2016-08-03] MEDS: PREGABALIN 50 MG CAPSULE PO SCH (09:01)
[2016-08-03] MEDS: ACETAMINOPHEN 325 MG TABLET. PO PRN (09:01)
[2016-08-03] MEDS: GUAIFENESIN ER 600 MG TABLET.ER PO SCH (09:02)
[2016-08-03] MEDS: LOSARTAN POTASSIUM 50 MG TABLET. PO SCH (09:02)
[2016-08-03] MEDS: ASPIRIN 325 MG TABLET PO SCH (09:02)
[2016-08-03] MEDS: AMLODIPINE BESYLATE 5 MG TABLET. PO SCH (09:02)
[2016-08-03] MEDS: LACTOBACILLUS ACIDOPH & BULGAR 1 TABLET. PO SCH (09:02)
[2016-08-03] MEDS: CETIRIZINE HCL 10 MG TABLET. PO SCH (09:02)
[2016-08-03] MEDS: OMEGA-3 FATTY ACIDS/FISH OIL 1,000 MG CAPSULE. PO SCH (09:02)
[2016-08-03] MEDS ORDERED: GUAI600T38 PO (10:50)
[2016-08-03] MEDS ORDERED: LEVO500T38 PO (10:50)
[2016-08-03 11:12] VITALS: BP 156/63
--- NOTE | 2016-08-03 12:34 | PDOC3 ---
Discharge Summary [facility] Date of Admission: Jul 30, 2016 Discharge Date: Aug 03, 2016 Admitting Diagnosis 1. Sepsis 2/2 2 2. RLL PNA 3. CAD, HTN, HLD 4. Hypothyroidism 5. OA, chronic pain 6. generalized weakness Problems: Final Diagnosis CONSULTS pulm Brief Hospital Course Ms. Hernandez is a 86 old F, from assisted living facility, for fever, runny nose, cough. CXR showed possible PNA, treated with vanco, zosyn, now levaquin. pt still feels very weak, hard to move wo help. dc to SNF for PTOT, cont levaquin for 5ds. dc time 35min General: Alert, Cooperative, No acute distress Heart: Regular rate Lungs: Clear Abdomen: Normal bowel sounds, Soft, No tenderness Extremities: No edema Skin: No rashes Patient History: FH: cancer of GI tract 32 MOTHER FH: lupus G8 DAUGHTER Family history: Cardiovascular disease (situation) G8 SON Problems: Disposition SNF CONDITION AT DISCHARGE: Improved Diet regular Scheduled Allopurinol (Allopurinol) 1 TAB PO HS (Reported) Amlodipine Besylate (Amlodipine Besylate) 5 MG PO DAILY (Reported) Ascorbic Acid (Vitamin C) 500 MG PO HS (Reported) Aspirin (Aspirin) 1 TAB PO DAILY (Reported) Calcium Carbonate (Calcium) 1,000 MG PO DAILYWLUN (Reported) Clopidogrel Bisulfate (Clopidogrel) 1 TAB PO DAILY (Reported) Duloxetine Hcl (Cymbalta) 60 MG PO HS (Reported) Glucosamine Hcl (Glucosamine Hcl) 1,500 MG PO DAILYWLUN (Reported) Guaifenesin (Mucinex) 600 MG PO BID Irbesartan/Hydrochlorothiazide (Avalide 300-12.5 Mg Tablet) 1 EACH PO DAILY ( Reported) Lactobacillus Combo No.11 (Probiotic) 1 EACH PO DAILY (Reported) Levofloxacin (Levaquin) 500 MG PO DAILY06 Levothyroxine Sodium (Levothyroxine Sodium) 1 TAB PO DAILY (Reported) Lidocaine (Lidoderm) 2 PATCH TP DAILY (Reported) Loratadine (Claritin) 1 TAB PO DAILY (Reported) Losartan Potassium (Cozaar) 100 MG PO DAILY (Reported) Menthol (Biofreeze) 118 ML TP BID (Reported) Multivitamin (Multivitamins) 1 TAB PO DAILY (Reported) [place]-3 Fatty Acids/Vitamin E (Pv Fish Oil 1,000 Mg Softgel) 1 CAP PO DAILY ( Reported) Pantoprazole Sodium (Protonix) 1 TAB PO DAILY (Reported) Pregabalin (Lyrica) 1 CAP PO DAILY (Reported) Pregabalin (Lyrica) 1 CAP PO HS (Reported) Vit C/E/Zn/Coppr/Lutein/Zeaxan (Ocuvite Lutein & Zeaxanthin Cp) 2 EACH PO HS ( Reported) Scheduled PRN Acetaminophen (Acetaminophen) 650 MG PO PRN Q6HRS PRN PRN PAIN (Reported) Cyclobenzaprine Hcl (Cyclobenzaprine Hcl) 5 MG PO PRN Q6HRS PRN PRN MUSCLE PAIN (Reported) Fentanyl (FENTANYL 75mcg/hr) 1 PATCH TD PRN Q48HR PRN PRN PAIN (Reported) Hydrocodone Bit/Acetaminophen (Hydrocodone-Apap 10-325 ) 1 TAB PO BID PRN PRN PAIN (Reported) Discontinued Medications Cefpodoxime Proxetil (Cefpodoxime Proxetil) 200 MG PO BID Follow Up pcp in 2 weeks MALLIKA COTO MD Aug 03, 2016 12:34
[2016-08-03] MEDS: FENTANYL 75MCG/HR PATCH. TD PRN (14:05)
== END 2016-08-03 14:40 | DRG 871 ==
LOC: ER 08:07 → 6 SOUTH 09:37
PROVIDERS: ADMIT Internal Medicine Hematology & Oncology; ATTEND Internal Medicine Hematology & Oncology
DX: A41.9 Sepsis, unspecified organism (principal); J18.9 Pneumonia, unspecified organism; G92 Toxic encephalopathy; J98.11 Atelectasis; E03.9 Hypothyroidism, unspecified; E78.5 Hyperlipidemia, unspecified; F32.9 Major depressive disorder, single episode, unspecified; G89.29 Other chronic pain; H35.30 Unspecified macular degeneration; I10 Essential (primary) hypertension; I25.10 Atherosclerotic heart disease of native coronary artery without angina pectoris; K21.9 Gastro-esophageal reflux disease without esophagitis; M10.9 Gout, unspecified; M79.7 Fibromyalgia; Z82.49 Family history of ischemic heart disease and other diseases of the circulatory system; I25.2 Old myocardial infarction; Z88.8 Allergy status to other drugs, medicaments and biological substances
CPT/HCPCS: 36415; 71010; 80048; 80053; 80202; 81001; 83605; 83880; 84443; 84484; 85007; 85027; 85610; 85730; 87040; 87641; 87804; 93005; 94250; 94640; 94760; J1650; J1956; J2543; J3370; J7030; J7040; 97110; 99285-25

== ENCOUNTER 2016-08-26 14:34 | Inpatient (IN) | payer MEDICARE, BC ==
[~2016-08-26] VITALS: Ht 167.6 cm; Wt 95.0 kg
[~2016-08-26 14:34] MED LIST changes: +ACET325T21 PO; +AMLO5TAB2 PO; +GUAI600T38 PO; -LEVO25TA2 PO; +LEVO25TA55 PO; +LEVO500T38 PO; +LOSA100T2 PO
--- NOTE | 2016-08-26 14:41 | PHYS DOC ---
Past Medical History Past Medical History: Arthritis, Depression, Fibromyalgia, GERD, Hypertension, Hypothyroid, [place], Other Additional Past Medical Histor: spinal stenosis, macular generation Past Surgical History: Hip Replacement, Other Additional Past Surgical Histo: mult. back surg., promus stent ivc filter, toe surg, bladder lift, sinus sg Alcohol Use: None Drug Use: None Adult General HPI HPI Patient is a 86 year old female who presents with generalized weakness and chest pain. According patient she was very weak yesterday and spent most the day in bed sleeping. Today she noticed some increasing pain in her anterior chest that did not radiate. Nothing makes the pain better or worse. She denies any nausea vomiting or diarrhea. She does have a cough sometimes productive which is been going on for several weeks. She denies any fevers or chills. According to her son when EMS arrived her O2 sat was 84%. Review of Systems Review of Systems Constitutional: Denies fever or chills [] Eyes: Denies change in visual acuity, redness, or eye pain [] HENT: Denies nasal congestion or sore throat [] Respiratory: Positive for shortness of breath and cough] Cardiovascular: No additional information not addressed in HPI [] GI: Denies abdominal pain, nausea, vomiting, bloody stools or diarrhea [] : Denies dysuria or hematuria [] Musculoskeletal: Denies back pain or joint pain [] Integument: Denies rash or skin lesions [] Neurologic: Denies headache, focal weakness or sensory changes [] Endocrine: Denies polyuria or polydipsia [] Allergies Allergies Allergies Coded Allergies Type Severity Reaction Last Updated Verified nitrofurantoin Allergy Intermediate 12/25/14 Yes tramadol Allergy Intermediate 12/25/14 Yes Physical Exam Physical Exam Constitutional: Well developed, well nourished, no acute distress, non-toxic appearance. [] HENT: Normocephalic, atraumatic, bilateral external ears normal, oropharynx moist, no oral exudates, nose normal. [] Eyes: PERRLA, EOMI, conjunctiva normal, no discharge. [] Neck: Normal range of motion, no tenderness, supple, no stridor. [] Cardiovascular:Heart rate regular rhythm, no murmur [] Lungs & Thorax: Bilateral breath sounds clear to auscultation [] Abdomen: Bowel sounds normal, soft, no tenderness, no masses, no pulsatile masses. [] Skin: Warm, dry, no erythema, no rash. [] Back: No tenderness, no CVA tenderness. [] Extremities: No tenderness, no cyanosis, no clubbing, ROM intact, no edema. [] Neurologic: Alert and oriented X 3, normal motor function, normal sensory function, no focal deficits noted. [] Psychologic: Affect normal, judgement normal, mood normal. [] Current Patient Data Vital Signs Vital Signs Date Time Temp Pulse Resp B/P Pulse Ox O2 Delivery O2 Flow Rate FiO2 08/26/16 16:30 56 24 92 Nasal Cannula 2 08/26/16 15:30 08/26/16 14:34 98.3 98.3 Lab Values Laboratory Tests Test 08/26/16 15:23 08/26/16 16:15 White Blood Count 5.7x10^3/uL (4.0-11.0) Red Blood Count 3.89x10^6/uL (3.50-5.40) Hemoglobin 11.6g/dL (12.0-15.5) L Hematocrit 34.8% (36.0-47.0) L Mean Corpuscular Volume 90fL (79-100) Mean Corpuscular Hemoglobin 30pg (25-35) Mean Corpuscular Hemoglobin Concent 33g/dL (31-37) Red Cell Distribution Width 16.3% (11.5-14.5) H Platelet Count 217x10^3/uL (140-400) Neutrophils (%) (Auto) 46% (31-73) Lymphocytes (%) (Auto) 30% (24-48) Monocytes (%) (Auto) 11% (0-9) H Eosinophils (%) (Auto) 12% (0-3) H Basophils (%) (Auto) 1% (0-3) Neutrophils # (Auto) 2.6x10^3uL (1.8-7.7) Lymphocytes # (Auto) 1.7x10^3/uL (1.0-4.8) Monocytes # (Auto) 0.6x10^3/uL (0.0-1.1) Eosinophils # (Auto) 0.7x10^3/uL (0.0-0.7) Basophils # (Auto) 0.1x10^3/uL (0.0-0.2) Prothrombin Time 11.8SEC (11.7-14.0) Prothrombin Time INR 0.9 (0.8-1.1) D-Dimer (Kym) 1.83ug/mlFEU (0.00-0.50) H Sodium Level 139mmol/L (136-145) Potassium Level 4.4mmol/L (3.5-5.1) Chloride Level 104mmol/L (98-107) Carbon Dioxide Level 32mmol/L (21-32) Anion Gap 3 (6-14) L Blood Urea Nitrogen 20mg/dL (7-20) Creatinine 1.1mg/dL (0.6-1.0) H Estimated GFR (Cockcroft-Gault) 47.1 Glucose Level 95mg/dL (70-99) Calcium Level 9.1mg/dL (8.5-10.1) Magnesium Level 2.0mg/dL (1.8-2.4) Total Bilirubin 0.6mg/dL (0.2-1.0) Direct Bilirubin 0.2mg/dL (0.0-0.2) Aspartate Amino Transferase (AST) 17U/L (15-37) Alanine Aminotransferase (ALT) 12U/L (14-59) L Alkaline Phosphatase 53U/L (46-116) Creatine Kinase 31U/L (26-192) Creatine Kinase MB (Mass) 0.6ng/mL (0.0-3.6) Creatine Kinase MB Relative Index 1.9% (0-4) Troponin I Quantitative < 0.017ng/mL (0.000-0.055) UB-Htv-R-Type Natriuretic Peptide 477pg/mL (0-449) H Total Protein 6.9g/dL (6.4-8.2) Albumin 3.2g/dL (3.4-5.0) L Lipase 81U/L (73-393) Thyroid Stimulating Hormone (TSH) 3.654uIU/mL (0.358-3.74) Urine Collection Type Unknown Urine Color Yellow Urine Clarity Clear Urine pH 5.5 Urine Specific [place] 1.015 Urine Protein Negativemg/dL (NEG-TRACE) Urine Glucose (UA) Negativemg/dL (NEG) Urine Ketones (Stick) Negativemg/dL (NEG) Urine Blood Trace (NEG) Urine Nitrite Negative (NEG) Urine Bilirubin Negative (NEG) Urine Urobilinogen Dipstick 0.2mg/dL (0.2 mg/dL) Urine Leukocyte Esterase Trace (NEG) Urine RBC 0/HPF (0-2) Urine WBC 1-4/HPF (0-4) Urine Squamous Epithelial Cells Few/LPF Urine Bacteria 0/HPF (0-FEW) Urine Mucus Slight/LPF Laboratory Tests 08/26/16 15:23 Laboratory Tests 08/26/16 15:23 EKG EKG EKG shows sinus rhythm 3-[address] elevations or T-wave inversions, normal axis, QTC 4 and 12 ms, as interpreted by me. Radiology/Procedures Radiology/Procedures [facility] [address] [place] [address] IMAGING REPORT Signed PATIENT: JANELL CHAHAL ACCOUNT: [id number] : 1930 LOCATION: ER AGE: 86 SEX: F EXAM STATUS: PRE ER ORD. PHYSICIAN: TOMASA RECINOS MD REASON: Chest pain PROCEDURE: PORTABLE CHEST 1V Portable chest, 08/26/2016: History: Chest pain Comparison is made to a study from 07/31/2016. The heart is at the upper limits of normal in size. The pulmonary vascularity is normal. There is calcific plaquing and tortuosity of the thoracic aorta. Mild basilar opacities have developed suggesting atelectasis/infiltrate. No pleural fluid is seen. IMPRESSION: 1. Borderline cardiomegaly and aortic atherosclerosis. 2. Mild bibasilar atelectasis/infiltrate. DICTATED and SIGNED BY: AYAAN TORRES MD DATE: 08/26/161512 CC: SUNG ROBLES; TOMASA RECINOS MD ~ IMAGING REPORT Signed PATIENT: JANELL CHAHAL ACCOUNT: [id number] : 1930 LOCATION: [address] [place] [address] AGE: 86 SEX: F EXAM STATUS: ADM IN ORD. PHYSICIAN: TOMASA RECINOS MD REASON: SOA PROCEDURE: CT ANGIOGRAPHY CHEST Examination: CT Angiography chest with IV contrast. HISTORY History of shortness of breath. COMPARISON None available. TECHNIQUE Axial CT angiographic images is were performed with IV contrast. Coronal sagittal reformats were performed. Exposure: One or more of the following dose reduction technique were utilized for this examination: 1. Automated exposure control. 2.Adjustment of MA and /or KV according to patient size. 3. Use of iterative reconstruction technique. Findings: The central airways are patent. Mild cardiomegaly. Diffuse coronary artery calcifications identified. There is no evidence of filling defect identified in the main pulmonary arterial trunk and right and left main pulmonary arteries and the visualized lobar, segmental branch of the pulmonary arteries. Diffuse coronary artery calcifications. In the right lower lobe of the lung, there is a 2.9 x 2.6 centimeter focus of airspace opacity could be mass or focus of consolidation.There is faint focus of airspace opacity identified in the left lower lobe of the lung measuring 1 centimeter could be a small focus of atelectasis or infiltrate.Another small focus of airspace opacity identified in the medial aspect of the left lower lobe of the lung likely atelectasis/ infiltrate. No evidence of pleural effusion or pneumothorax. There is minimal prominence of bilateral interstitial lung markings identified with some ground-glass changes identified in the bilateral lungs likely air trapping. The visualized liver, spleen, adrenals grossly appears unremarkable. Moderate to severe degenerative changes thoracic spine. IMPRESSION - No evidence of pulmonary embolism. - 2.9 centimeters focus of opacity identified in the right lower lobe of the lung could be mass or infiltrate. - Faint foci of airspace opacities identified in the left lung base likely atelectasis infiltrates. Followup to resolution. - Coronary artery calcifications. Electronically signed by: Patrick Gleason (Aug 26, 2016 19:15:13) DICTATED and SIGNED BY: PATRICK GLEASON MD DATE: 08/26/161914 CC: SUNG ROBLES; TOMASA RECINOS MD; FLOYD CLEVELAND MD ~ Impressions: Shortness of air Hypoxia Generalized weakness Course & Med Decision Making Course & Med Decision Making Pertinent Labs and Imaging studies reviewed. (See chart for details) CT scan does not show any signs of PE you know she had elevated d-dimer and short of breath. She is not requiring oxygen to keep her O2 sats up. We'll start Levaquin at this time to cover for infectious process. Patient is being admitted to Dr. Cleveland at this time with cardiology consultation with Dr. Torres. Patient's in stable condition at this time. Bridge orders have been written. Dragon Disclaimer Dragon Disclaimer This electronic medical record was generated, in whole or in part, using a voice recognition dictation system. Departure Departure Impression: Primary Impression: Hypoxia Disposition: ADMITTED INPATIENT Admitting Physician: Floyd Cleveland Condition: STABLE Referrals: SUNG ROBLES (PCP) TOMASA RECINOS MD Aug 26, 2016 14:41
--- NOTE | 2016-08-26 14:51 | EKG ---
[facility] [address] [place] [address] Test Date: 2016-08-26 Test Time: 14:42:37 Pat Name: JANELL CHAHAL Department: Room: Gender: F Cobbler Mckay: : 1930 Requested By: TOMASA RECINOS Order Number: [id number] Reading MD: Fred Keane Measurements Intervals [place] Rate: 58 P: 45 MT: 280 QRS: 7 QRSD: 72 T: 29 QT: 416 QTc: 412 Interpretive Statements SINUS RHYTHM ATRIAL PREMATURE COMPLEX(ES) PROLONGED MT INTERVAL Electronically Signed On 08-26-2016 15:09:03 CDT by Fred Keane
--- NOTE | 2016-08-26 15:18 | RAD ---
Portable chest, 08/26/2016: History: Chest pain Comparison is made to a study from 07/31/2016. The heart is at the upper limits of normal in size. The pulmonary vascularity is normal. There is calcific plaquing and tortuosity of the thoracic aorta. Mild basilar opacities have developed suggesting atelectasis/infiltrate. No pleural fluid is seen. IMPRESSION: 1. Borderline cardiomegaly and aortic atherosclerosis. 2. Mild bibasilar atelectasis/infiltrate.
[2016-08-26 15:30] LABS: BASO # 0.1 x10^3/uL (0.0-0.2); BASO % 1 % (0-3); EOS % 12 % (0-3); HEMATOCRIT 34.8 % (36.0-47.0); HEMOGLOBIN 11.6 g/dL (12.0-15.5); LYMPH # 1.7 x10^3/uL (1.0-4.8); LYMPH % 30 % (24-48); MEAN CORPUSCULAR HEMOGLOBIN 30 pg (25-35); MEAN CORPUSCULAR HGB CONC 33 g/dL (31-37); MEAN CORPUSCULAR VOLUME 90 fL (79-100); MONO % 11 % (0-9); NEUT % 46 % (31-73); PLATELET COUNT 217 x10^3/uL (140-400); RED BLOOD COUNT 3.89 x10^6/uL (3.50-5.40); RED CELL DISTRIBUTION WIDTH 16.3 % (11.5-14.5); WHITE BLOOD COUNT 5.7 x10^3/uL (4.0-11.0)
[2016-08-26 15:37] LABS: INR 0.9 (0.8-1.1); PROTHROMBIN TIME PATIENT 11.8 SEC (11.7-14.0)
[2016-08-26 15:53] LABS: CALCIUM 9.1 mg/dL (8.5-10.1); CREATININE 1.1 mg/dL (0.6-1.0); GFR 47.1; POTASSIUM 4.4 mmol/L (3.5-5.1)
[2016-08-26 15:59] LABS: ALBUMIN 3.2 g/dL (3.4-5.0); DIRECT BILIRUBIN 0.2 mg/dL (0.0-0.2); TOTAL BILIRUBIN 0.6 mg/dL (0.2-1.0); TOTAL PROTEIN 6.9 g/dL (6.4-8.2)
[2016-08-26 16:09] LABS: CKMB MASS 0.6 ng/mL (0.0-3.6)
[2016-08-26 16:31] LABS: BILIRUBIN,URINE NEGATIVE (NEG); GLUCOSE,URINE NEGATIVE (NEG); NITRITE,URINE NEGATIVE (NEG); PH,URINE 5.5; PROTEIN,URINE NEGATIVE (NEG-TRACE); UROBILINOGEN,URINE 0.2 mg/dL (0.2 mg/dL)
[2016-08-26 16:42] LABS: BACTERIA,URINE 0 /HPF (0-FEW); RBC,URINE 0 /HPF (0-2); SQUAMOUS EPITHELIAL CELL,UR FEW /LPF
[2016-08-26] MEDS ORDERED: IV NORMAL SALINE 1000ML BAG 1,000 ML IV ONE (17:00)
[2016-08-26] MEDS ORDERED: IOHEXOL 300 MG/ML 75 ML VIAL IV ONE (18:00)
[2016-08-26] MEDS ORDERED: CONTRAST GIVEN MC PRN (18:00)
[2016-08-26 19:00] VITALS: BP 156/71
--- NOTE | 2016-08-26 19:16 | RAD ---
Examination: CT Angiography chest with IV contrast. HISTORY History of shortness of breath. COMPARISON None available. TECHNIQUE Axial CT angiographic images is were performed with IV contrast. Coronal sagittal reformats were performed. Exposure: One or more of the following dose reduction technique were utilized for this examination: 1. Automated exposure control. 2.Adjustment of MA and /or KV according to patient size. 3. Use of iterative reconstruction technique. Findings: The central airways are patent. Mild cardiomegaly. Diffuse coronary artery calcifications identified. There is no evidence of filling defect identified in the main pulmonary arterial trunk and right and left main pulmonary arteries and the visualized lobar, segmental branch of the pulmonary arteries. Diffuse coronary artery calcifications. In the right lower lobe of the lung, there is a 2.9 x 2.6 centimeter focus of airspace opacity could be mass or focus of consolidation.There is faint focus of airspace opacity identified in the left lower lobe of the lung measuring 1 centimeter could be a small focus of atelectasis or infiltrate.Another small focus of airspace opacity identified in the medial aspect of the left lower lobe of the lung likely atelectasis/ infiltrate. No evidence of pleural effusion or pneumothorax. There is minimal prominence of bilateral interstitial lung markings identified with some ground-glass changes identified in the bilateral lungs likely air trapping. The visualized liver, spleen, adrenals grossly appears unremarkable. Moderate to severe degenerative changes thoracic spine. IMPRESSION - No evidence of pulmonary embolism. - 2.9 centimeters focus of opacity identified in the right lower lobe of the lung could be mass or infiltrate. - Faint foci of airspace opacities identified in the left lung base likely atelectasis infiltrates. Followup to resolution. - Coronary artery calcifications. Electronically signed by: Patrick Gleason (Aug 26, 2016 19:15:13)
--- NOTE | 2016-08-26 19:22 | ACF ---
Admission Forms Criteria PNEUMONIA, HOSPITAL-ACQUIRED AND ATELECTASIS Clinical Indications for Inpatient Care (Place 'X' for any and all applicable criteria): Ongoing inpatient care may be indicated for hospital-acquired atelectasis or pneumonia[N] with ANY ONE of the following(2)(5)(47)(48)(49): [ ]I. Mechanical ventilation [N] [ ]II. Temperature less than 35 degrees C (95 degrees F) or greater than 39.5 degrees C (103.1 degrees F) [ ]III. Tachypnea (eg, respiratory rate greater than 30 breaths per minute) [ ]IV. Hemodynamic instability [ ]V. Respiratory distress [X]. Significant hypoxemia as indicated by ANY ONE of the following: [X]a) Previously normal respiratory status with ANY ONE of the following: [X]i) SaO2 less than 90% or PO2 less than 60 mm Hg (8.0 kPa )) on room air [ ]ii) Oxygen required to keep SaO2 greater than 90% [ ]b) Chronic baseline hypoxemia with significant deterioration (eg, O2 saturation decrease more than 5%) [ ]c) Required supplemental oxygen performable only in acute inpatient setting [ ]VII. Significant hypoventilation as indicated by ANY ONE of the following: [ ]a) Previously normal with PCO2 greater than 42 mm Hg (5.6 kPa) and pH less than 7.35 [ ]b) Documented PCO2 increase greater than 5 mm Hg (0.7 kPa) from disease baseline [ ]VIII.Severe secretion production requiring frequent suctioning Extended stay beyond goal length of stay for primary condition may be needed until ALL of the following are present(28)(29): [ ]a) Microbiologic cause of infection identified and appropriate antibiotic treatment in place, or satisfactory clinical response to empiric antibiotic therapy [ ]b) Hemodynamic stability [ ]c) No requirement for supplemental oxygen performable only in acute inpatient setting [ ]d) Chest tube absent or chest catheter management regimen established for next level of care [ ]e) Suctioning, pulmonary toilet, or other therapy performable at a lower level of care [ ]f) Fever absent, improved, or manageable at lower level of care [ ]g) Medical comorbidities manageable at a lower level of care The original [facility] content created by Saulo Montilla has been revised. The portions of the content which have been revised are identified through the use of italic text or in bold, and [facility] has neither reviewed nor approved the modified material. All other unmodified content is copyright [facility] Please see references footnoted in the original [facility] edition 2016 Admission Criteria Met?: Yes KIMBERLY ALMARAZ Aug 26, 2016 19:22
[2016-08-26 19:30] VITALS: BP 135/65
[2016-08-26] MEDS ORDERED: BISA10SU55 RC (20:06)
[2016-08-26] MEDS ORDERED: POLY17PO29 PO (20:06)
[2016-08-26] MEDS ORDERED: OXYC5CAP3 PO (20:06)
[2016-08-26] MEDS ORDERED: HYDR-2762 PO (20:06)
[2016-08-26] MEDS ORDERED: SENN-6 PO (20:06)
[2016-08-26] MEDS ORDERED: ASCO500C PO (20:06)
[2016-08-26] MEDS ORDERED: POLYETHYLENE GLYCOL 3350 17 GM PACKET. PO PRN (20:30)
[2016-08-26] MEDS ORDERED: ACETAMINOPHEN 325 MG TABLET. PO PRN (20:30)
[2016-08-26] MEDS ORDERED: HYDROcodone/APAP 10/325 1 TAB TABLET PO PRN (20:30)
[2016-08-26] MEDS ORDERED: SENNOSIDES/DOCUSATE 8.6/50MG TABLET. PO PRN (20:30)
[2016-08-26] MEDS ORDERED: BISACODYL 10 MG SUPP.RECT. RC PRN (20:30)
[2016-08-26] MEDS ORDERED: HYDROcodone/APAP 7.5/325MG 1 TAB TABLET PO PRN (20:30)
[2016-08-26] MEDS ORDERED: METHYL SALICYLATE/MENTHOL TOPICAL OINTMENT 29GM TUBE. TP PRN (20:45)
[2016-08-26] MEDS ORDERED: CYCLOBENZAPRINE 10 MG TABLET. PO PRN (20:45)
[2016-08-26] MEDS ORDERED: oxyCODONE IR 5 MG TABLET PO PRN (20:45)
[2016-08-26] MEDS ORDERED: IPRATRPIUM/ALBUTEROL 0.5/2.5MG 3 ML NEBU. NEB ONE (21:00)
[2016-08-26] MEDS ORDERED: NON FORMULARY ITEM (Ascorbic Acid (Vitamin C) 500 MG) PO SCH (21:00)
[2016-08-26] MEDS: ENOXAPARIN 40 MG/0.4 ML SYRINGE. SQ SCH (21:27)
[2016-08-26] MEDS: MULTIVITAMIN EYE FORMULA CAPSULE. PO SCH (21:27)
[2016-08-26] MEDS: ALLOPURINOL 100 MG TABLET. PO SCH (21:27)
[2016-08-26] MEDS: DULoxetine HCL 30 MG CAPSULE.DR PO SCH (21:27)
[2016-08-26] MEDS: ASCORBIC ACID 500 MG TABLET PO SCH (21:27)
[2016-08-26] MEDS: PREGABALIN 75 MG CAPSULE PO SCH (21:27)
[2016-08-26 21:54] LABS: OBC FLU VALID
[2016-08-26 23:20] VITALS: BP 116/54
[2016-08-27 03:40] VITALS: BP 121/79
[2016-08-27 06:04] LABS: BASO # 0.1 x10^3/uL (0.0-0.2); BASO % 1 % (0-3); EOS % 13 % (0-3); HEMATOCRIT 36.8 % (36.0-47.0); HEMOGLOBIN 12.4 g/dL (12.0-15.5); LYMPH # 2.1 x10^3/uL (1.0-4.8); LYMPH % 34 % (24-48); MEAN CORPUSCULAR HEMOGLOBIN 30 pg (25-35); MEAN CORPUSCULAR HGB CONC 34 g/dL (31-37); MEAN CORPUSCULAR VOLUME 89 fL (79-100); MONO % 11 % (0-9); NEUT % 41 % (31-73); PLATELET COUNT 238 x10^3/uL (140-400); RED BLOOD COUNT 4.11 x10^6/uL (3.50-5.40); RED CELL DISTRIBUTION WIDTH 16.9 % (11.5-14.5); WHITE BLOOD COUNT 6.3 x10^3/uL (4.0-11.0)
[2016-08-27 06:27] LABS: CALCIUM 9.4 mg/dL (8.5-10.1); GFR 52.6; POTASSIUM 3.7 mmol/L (3.5-5.1)
[2016-08-27] MEDS: LEVOTHYROXINE 75 MCG TABLET PO SCH (06:39)
[2016-08-27 07:00] VITALS: BP 143/66
--- NOTE | 2016-08-27 08:07 | PDOC ---
PULMONARY PROGRESS NOTES Vitals Vital Signs Date Time Temp Pulse Resp B/P Pulse Ox O2 Delivery O2 Flow Rate FiO2 08/27/16 07:00 98.0 61 18 143/66 94 Nasal Cannula 2.0 98.0 General: Short term memory loss, Lungs: Clear Cardiovascular: S1, S2 Abdomen: Soft Extremities: No Edema Labs Laboratory Tests Test 08/26/16 15:23 08/26/16 16:15 08/26/16 20:00 08/26/16 21:00 White Blood Count 5.7x10^3/uL (4.0-11.0) Red Blood Count 3.89x10^6/uL (3.50-5.40) Hemoglobin 11.6g/dL (12.0-15.5) Hematocrit 34.8% (36.0-47.0) Mean Corpuscular Volume 90fL (79-100) Mean Corpuscular Hemoglobin 30pg (25-35) Mean Corpuscular Hemoglobin Concent 33g/dL (31-37) Red Cell Distribution Width 16.3% (11.5-14.5) Platelet Count 217x10^3/uL (140-400) Neutrophils (%) (Auto) 46% (31-73) Lymphocytes (%) (Auto) 30% (24-48) Monocytes (%) (Auto) 11% (0-9) Eosinophils (%) (Auto) 12% (0-3) Basophils (%) (Auto) 1% (0-3) Neutrophils # (Auto) 2.6x10^3uL (1.8-7.7) Lymphocytes # (Auto) 1.7x10^3/uL (1.0-4.8) Monocytes # (Auto) 0.6x10^3/uL (0.0-1.1) Eosinophils # (Auto) 0.7x10^3/uL (0.0-0.7) Basophils # (Auto) 0.1x10^3/uL (0.0-0.2) Prothrombin Time 11.8SEC (11.7-14.0) Prothromb Time International Ratio 0.9 (0.8-1.1) D-Dimer (Kym) 1.83ug/mlFEU (0.00-0.50) Sodium Level 139mmol/L (136-145) Potassium Level 4.4mmol/L (3.5-5.1) Chloride Level 104mmol/L (98-107) Carbon Dioxide Level 32mmol/L (21-32) Anion Gap 3 (6-14) Blood Urea Nitrogen 20mg/dL (7-20) Creatinine 1.1mg/dL (0.6-1.0) Estimated GFR (Cockcroft-Gault) 47.1 Glucose Level 95mg/dL (70-99) Calcium Level 9.1mg/dL (8.5-10.1) Magnesium Level 2.0mg/dL (1.8-2.4) Total Bilirubin 0.6mg/dL (0.2-1.0) Direct Bilirubin 0.2mg/dL (0.0-0.2) Aspartate Amino Transf (AST/SGOT) 17U/L (15-37) Alanine Aminotransferase (ALT/SGPT) 12U/L (14-59) Alkaline Phosphatase 53U/L (46-116) Creatine Kinase 31U/L (26-192) Creatine Kinase MB (Mass) 0.6ng/mL (0.0-3.6) Creatine Kinase MB Relative Index 1.9% (0-4) Troponin I Quantitative < 0.017ng/mL (0.000-0.055) < 0.017ng/mL (0.000-0.055) KI-Nle-O-Type Natriuretic Peptide 477pg/mL (0-449) Total Protein 6.9g/dL (6.4-8.2) Albumin 3.2g/dL (3.4-5.0) Lipase 81U/L (73-393) Thyroid Stimulating Hormone (TSH) 3.654uIU/mL (0.358-3.74) Urine Collection Type Unknown Urine Color Yellow Urine Clarity Clear Urine pH 5.5 Urine Specific [place] 1.015 Urine Protein Negativemg/dL (NEG-TRACE) Urine Glucose (UA) Negativemg/dL (NEG) Urine Ketones (Stick) Negativemg/dL (NEG) Urine Blood Trace (NEG) Urine Nitrite Negative (NEG) Urine Bilirubin Negative (NEG) Urine Urobilinogen Dipstick 0.2mg/dL (0.2 mg/dL) Urine Leukocyte Esterase Trace (NEG) Urine RBC 0/HPF (0-2) Urine WBC 1-4/HPF (0-4) Urine Squamous Epithelial Cells Few/LPF Urine Bacteria 0/HPF (0-FEW) Urine Mucus Slight/LPF Influenza Type A Antigen Negative (NEGATIVE) Influenza Type B Antigen Negative (NEGATIVE) Test 08/27/16 00:01 08/27/16 05:00 Troponin I Quantitative < 0.017ng/mL (0.000-0.055) White Blood Count 6.3x10^3/uL (4.0-11.0) Red Blood Count 4.11x10^6/uL (3.50-5.40) Hemoglobin 12.4g/dL (12.0-15.5) Hematocrit 36.8% (36.0-47.0) Mean Corpuscular Volume 89fL (79-100) Mean Corpuscular Hemoglobin 30pg (25-35) Mean Corpuscular Hemoglobin Concent 34g/dL (31-37) Red Cell Distribution Width 16.9% (11.5-14.5) Platelet Count 238x10^3/uL (140-400) Neutrophils (%) (Auto) 41% (31-73) Lymphocytes (%) (Auto) 34% (24-48) Monocytes (%) (Auto) 11% (0-9) Eosinophils (%) (Auto) 13% (0-3) Basophils (%) (Auto) 1% (0-3) Neutrophils # (Auto) 2.6x10^3uL (1.8-7.7) Lymphocytes # (Auto) 2.1x10^3/uL (1.0-4.8) Monocytes # (Auto) 0.7x10^3/uL (0.0-1.1) Eosinophils # (Auto) 0.8x10^3/uL (0.0-0.7) Basophils # (Auto) 0.1x10^3/uL (0.0-0.2) Sodium Level 141mmol/L (136-145) Potassium Level 3.7mmol/L (3.5-5.1) Chloride Level 104mmol/L (98-107) Carbon Dioxide Level 29mmol/L (21-32) Anion Gap 8 (6-14) Blood Urea Nitrogen 19mg/dL (7-20) Creatinine 1.0mg/dL (0.6-1.0) Estimated GFR (Cockcroft-Gault) 52.6 Glucose Level 84mg/dL (70-99) Calcium Level 9.4mg/dL (8.5-10.1) Laboratory Tests Test 08/26/16 15:23 08/26/16 16:15 08/26/16 20:00 08/26/16 21:00 White Blood Count 5.7x10^3/uL (4.0-11.0) Red Blood Count 3.89x10^6/uL (3.50-5.40) Hemoglobin 11.6g/dL (12.0-15.5) Hematocrit 34.8% (36.0-47.0) Mean Corpuscular Volume 90fL (79-100) Mean Corpuscular Hemoglobin 30pg (25-35) Mean Corpuscular Hemoglobin Concent 33g/dL (31-37) Red Cell Distribution Width 16.3% (11.5-14.5) Platelet Count 217x10^3/uL (140-400) Neutrophils (%) (Auto) 46% (31-73) Lymphocytes (%) (Auto) 30% (24-48) Monocytes (%) (Auto) 11% (0-9) Eosinophils (%) (Auto) 12% (0-3) Basophils (%) (Auto) 1% (0-3) Neutrophils # (Auto) 2.6x10^3uL (1.8-7.7) Lymphocytes # (Auto) 1.7x10^3/uL (1.0-4.8) Monocytes # (Auto) 0.6x10^3/uL (0.0-1.1) Eosinophils # (Auto) 0.7x10^3/uL (0.0-0.7) Basophils # (Auto) 0.1x10^3/uL (0.0-0.2) Prothrombin Time 11.8SEC (11.7-14.0) Prothromb Time International Ratio 0.9 (0.8-1.1) D-Dimer (Kym) 1.83ug/mlFEU (0.00-0.50) Sodium Level 139mmol/L (136-145) Potassium Level 4.4mmol/L (3.5-5.1) Chloride Level 104mmol/L (98-107) Carbon Dioxide Level 32mmol/L (21-32) Anion Gap 3 (6-14) Blood Urea Nitrogen 20mg/dL (7-20) Creatinine 1.1mg/dL (0.6-1.0) Estimated GFR (Cockcroft-Gault) 47.1 Glucose Level 95mg/dL (70-99) Calcium Level 9.1mg/dL (8.5-10.1) Magnesium Level 2.0mg/dL (1.8-2.4) Total Bilirubin 0.6mg/dL (0.2-1.0) Direct Bilirubin 0.2mg/dL (0.0-0.2) Aspartate Amino Transf (AST/SGOT) 17U/L (15-37) Alanine Aminotransferase (ALT/SGPT) 12U/L (14-59) Alkaline Phosphatase 53U/L (46-116) Creatine Kinase 31U/L (26-192) Creatine Kinase MB (Mass) 0.6ng/mL (0.0-3.6) Creatine Kinase MB Relative Index 1.9% (0-4) Troponin I Quantitative < 0.017ng/mL (0.000-0.055) < 0.017ng/mL (0.000-0.055) JZ-Wta-H-Type Natriuretic Peptide 477pg/mL (0-449) Total Protein 6.9g/dL (6.4-8.2) Albumin 3.2g/dL (3.4-5.0) Lipase 81U/L (73-393) Thyroid Stimulating Hormone (TSH) 3.654uIU/mL (0.358-3.74) Urine Collection Type Unknown Urine Color Yellow Urine Clarity Clear Urine pH 5.5 Urine Specific [place] 1.015 Urine Protein Negativemg/dL (NEG-TRACE) Urine Glucose (UA) Negativemg/dL (NEG) Urine Ketones (Stick) Negativemg/dL (NEG) Urine Blood Trace (NEG) Urine Nitrite Negative (NEG) Urine Bilirubin Negative (NEG) Urine Urobilinogen Dipstick 0.2mg/dL (0.2 mg/dL) Urine Leukocyte Esterase Trace (NEG) Urine RBC 0/HPF (0-2) Urine WBC 1-4/HPF (0-4) Urine Squamous Epithelial Cells Few/LPF Urine Bacteria 0/HPF (0-FEW) Urine Mucus Slight/LPF Influenza Type A Antigen Negative (NEGATIVE) Influenza Type B Antigen Negative (NEGATIVE) Test 08/27/16 00:01 08/27/16 05:00 Troponin I Quantitative < 0.017ng/mL (0.000-0.055) White Blood Count 6.3x10^3/uL (4.0-11.0) Red Blood Count 4.11x10^6/uL (3.50-5.40) Hemoglobin 12.4g/dL (12.0-15.5) Hematocrit 36.8% (36.0-47.0) Mean Corpuscular Volume 89fL (79-100) Mean Corpuscular Hemoglobin 30pg (25-35) Mean Corpuscular Hemoglobin Concent 34g/dL (31-37) Red Cell Distribution Width 16.9% (11.5-14.5) Platelet Count 238x10^3/uL (140-400) Neutrophils (%) (Auto) 41% (31-73) Lymphocytes (%) (Auto) 34% (24-48) Monocytes (%) (Auto) 11% (0-9) Eosinophils (%) (Auto) 13% (0-3) Basophils (%) (Auto) 1% (0-3) Neutrophils # (Auto) 2.6x10^3uL (1.8-7.7) Lymphocytes # (Auto) 2.1x10^3/uL (1.0-4.8) Monocytes # (Auto) 0.7x10^3/uL (0.0-1.1) Eosinophils # (Auto) 0.8x10^3/uL (0.0-0.7) Basophils # (Auto) 0.1x10^3/uL (0.0-0.2) Sodium Level 141mmol/L (136-145) Potassium Level 3.7mmol/L (3.5-5.1) Chloride Level 104mmol/L (98-107) Carbon Dioxide Level 29mmol/L (21-32) Anion Gap 8 (6-14) Blood Urea Nitrogen 19mg/dL (7-20) Creatinine 1.0mg/dL (0.6-1.0) Estimated GFR (Cockcroft-Gault) 52.6 Glucose Level 84mg/dL (70-99) Calcium Level 9.4mg/dL (8.5-10.1) Medications Active Scripts Medications Dose Route/Sig Days Date Category Vitamin C (Ascorbic Acid) 500 Mg Capsule.er 500 Mg PO HS 08/26/16 Reported Senna S Tablet (Sennosides/Docusate Sodium) 1 Each Tablet 1 Each PO PRN STEFANO PRN 08/26/16 Reported Oxycodone Hcl 5 Mg Capsule 5 Mg PO PRN Q4HRS PRN 08/26/16 Reported Miralax (Polyethylene Glycol 3350) 17 Gm Powd.pack 1 Packet PO PRN DAILY PRN 08/26/16 Reported Hydrocodone-Apap 7.5-325 (Hydrocodone Bit/Acetaminophen) 1 Each Tablet 1 Tab PO PRN Q4HRS PRN 08/26/16 Reported Dulcolax (Bisacodyl) 10 Mg Supp.rect 10 Mg RC PRN DAILY PRN 08/26/16 Reported Levaquin (Levofloxacin) 500 Mg Tablet 500 Mg PO DAILY06 5 08/03/16 Rx Mucinex (Guaifenesin) 600 Mg Tablet.er 600 Mg PO BID 08/03/16 Rx Cozaar (Losartan Potassium) 100 Mg Tablet 100 Mg PO DAILY 07/30/16 Reported Amlodipine Besylate 5 Mg Tablet 5 Mg PO DAILY 07/30/16 Reported Acetaminophen 325 Mg Tablet 650 Mg PO PRN Q6HRS PRN 07/30/16 Reported Probiotic (Lactobacillus Combo No.11) 1 Each Cap.sprink 1 Each PO DAILY 09/15/15 Reported Cyclobenzaprine Hcl 5 Mg Tablet 5 Mg PO PRN Q6HRS PRN 09/15/15 Reported Cymbalta (Duloxetine Hcl) 60 Mg Capsule.dr 60 Mg PO HS 09/15/15 Reported Claritin (Loratadine) 10 Mg Tablet 1 Tab PO DAILY 09/15/15 Reported Biofreeze (Menthol) 118 Ml Gel..ml. 118 Ml TP BID 09/15/15 Reported Aspirin 325 Mg Tablet 1 Tab PO DAILY 09/15/15 Reported Levothyroxine Sodium 75 Mcg Tablet 1 Tab PO DAILY 09/15/15 Reported Ocuvite Lutein & Zeaxanthin Cp (Vit C/E/Zn/Coppr/Lutein/Zeaxan) 1 Each Capsule 2 Each PO HS 12/25/14 Reported Allopurinol 100 Mg Tablet 1 Tab PO HS 12/25/14 Reported Calcium (Calcium Carbonate) 500 Mg Tablet 1,000 Mg PO DAILYWLUN 12/25/14 Reported Lidoderm (Lidocaine) 700 Mg Adh..patch 2 Patch TP DAILY 12/25/14 Reported Glucosamine Hcl 1,500 Mg Tablet 1,500 Mg PO DAILYWLUN 12/25/14 Reported FENTANYL 75mcg/hr (Fentanyl) 1 Each Patch.td72 1 Patch TD PRN Q48HR PRN 12/25/14 Reported Lyrica (Pregabalin) 150 Mg Capsule 1 Cap PO HS 12/25/14 Reported Lyrica (Pregabalin) 100 Mg Capsule 1 Cap PO DAILY 12/25/14 Reported Protonix (Pantoprazole Sodium) 40 Mg Tablet.dr 1 Tab PO DAILY 12/25/14 Reported Clopidogrel (Clopidogrel Bisulfate) 75 Mg Tablet 1 Tab PO DAILY 12/25/14 Reported Avalide 300-12.5 Mg Tablet (Irbesartan/Hydrochlorothiazide) 1 Each Tablet 1 Each PO DAILY 12/25/14 Reported Vitamin C (Ascorbic Acid) 500 Mg Capsule.er 500 Mg PO HS 12/25/14 Reported Multivitamins (Multivitamin) 1 Each Tablet 1 Tab PO DAILY 12/25/14 Reported Pv Fish Oil 1,000 Mg Softgel ([place]-3 Fatty Acids/Vitamin E) 1,000 Mg Capsule 1 Cap PO DAILY 12/25/14 Reported Hydrocodone-Apap 10-325 (Hydrocodone Bit/Acetaminophen) 1 Each Tablet 1 Tab PO PRN TID PRN 12/25/14 Reported Impression . note dictated suspect gram pos/neg pneumonia doubt ca will need a repeat Ct in 6-8 weeks thanks ARASELI ROWAN MD Aug 27, 2016 08:07
[2016-08-27] MEDS ORDERED: ALBUTEROL SULFATE 2.5 MG/3 ML NEBU. NEB PRN (08:15)
--- NOTE | 2016-08-27 08:57 | CONS ---
DATE OF CONSULTATION: 08/27/2016 ATTENDING PHYSICIAN: Floyd Renee M.D. REASON FOR CONSULTATION: The patient was seen in pulmonary consultation at the request of Dr. Renee for abnormal CT of the chest. HISTORY OF PRESENT ILLNESS: The patient is an 86-year-old that was recently hospitalized back in late June, was treated for pneumonia, discharged home on some antibiotics. She is at the assisted living facility. The nurse there noted that she was weak, increasing short of air. The patient was still complaining of cough, mostly nonproductive, no fevers documented. EMS was summoned. They found her to have O2 saturations of 84% on room air. She was transferred to the Emergency Department. She has a prior history of DVT, status post IVC filter placement. She underwent CT angiogram for PE. I reviewed the CT. There is no evidence of pulmonary embolism. There is a right lower lobe consolidation, possible lung mass. The patient smoked in the 20s for approximately a year. She denies fever, chills, nausea, vomiting or hemoptysis. PAST MEDICAL HISTORY: 1. DVT in the year 1999 or so, also status post IVC filter placement, etiology is unclear. 2. Fibromyalgia. 3. Gastroesophageal reflux. 4. Hypertension. 5. Hypothyroidism. 6. Coronary artery disease with previous myocardial infarction. 7. Recent pneumonia, treated late June, early July of this year. PAST SURGICAL HISTORY: Status post IVC filter placement, bladder lift, sinus surgery. She has had previous back surgery. ALLERGIES: TO NITROFURANTOIN AND TRAMADOL. SOCIAL HISTORY: She is basically a nonsmoker. Denies any alcohol intake. FAMILY HISTORY: Mother had cancer, primary, unknown. REVIEW OF SYSTEMS: As indicated above, otherwise, a 10-point system was reviewed and negative. CURRENT MEDICATION: List was reviewed. Please see the MRAD. She is currently being treated with linezolid and Levaquin. PHYSICAL EXAMINATION: GENERAL: The patient appeared to be her stated age. She was weak, but in no respiratory distress. She does not appear to be septic. VITAL SIGNS: She is currently on 2 liters of oxygen supplementation. HEENT: Eyes, the sclerae were nonicteric. NECK: Jugular venous distention was not elevated. No lymphadenopathy. CHEST: Full expansion. LUNGS: Adequate airway flow with slight rales on the right. CARDIOVASCULAR: Regular rate and rhythm with S1, S2, no S3. ABDOMEN: Soft, nontender, nondistended. EXTREMITIES: No clubbing, cyanosis or edema. NEUROLOGIC: The patient was awake, alert. She sat up at the edge of the bed. She was weak, but there were no focal deficits noted. LABORATORY DATA: Reviewed. White count was normal. Hemoglobin and hematocrit were noted. Electrolytes were noted. Troponin level was not elevated. BNP was slightly elevated. D-dimer was positive. Serology for influenza was negative. IMAGING: Chest x-ray was reviewed. In comparison to the previous film and I had looked at a film there from last year, I do not really appreciate a right lower lobe mass in the past. IMPRESSION: 1. Acute respiratory failure secondary to pneumonia. 2. Abnormal CT revealing evidence of pneumonia, possibly lung mass. 3. CT with no evidence of pulmonary embolism. 4. History of deep venous thrombosis, status post IVC filter placement. 5. Chronic pain syndrome/fibromyalgia. 6. Coronary artery disease with previous myocardial infarction. PLAN: 1. Considering the patient's recent admission to the hospital back in late June, early July, recommend coverage for both gram-negative and gram-positive organism, concur with current linezolid and Levaquin. 2. Continue oxygen supplementation. 3. DVT prophylaxis. 4. Nebulized treatments. 5. Repeat CT in 6-8 weeks as an outpatient. 6. PT/OT. I do appreciate the privilege in sharing in the patient's care. ARASELI ROWAN MD DR: ODESSA/ellis JOB#: [id number] / [id number]
[2016-08-27] MEDS ORDERED: HYDROCHLOROTHIAZIDE PO SCH (09:00)
[2016-08-27] MEDS ORDERED: IRBESARTAN PO SCH (09:00)
[2016-08-27] MEDS: IPRATRPIUM/ALBUTEROL 0.5/2.5MG 3 ML NEBU. NEB SCH ×4 (09:19→19:31)
--- NOTE | 2016-08-27 10:28 | PDOC ---
Provider Note Provider Note Pt seen.H&P dictated. #[id number] DAWN CLEVELAND MD Aug 27, 2016 10:28
[2016-08-27] MEDS: CETIRIZINE HCL 10 MG TABLET. PO SCH (10:33)
[2016-08-27] MEDS: LACTOBACILLUS ACIDOPH & BULGAR 1 TABLET. PO SCH (10:33)
[2016-08-27] MEDS: MULTIVITAMIN with MINERAL TABLET. PO SCH (10:33)
[2016-08-27] MEDS: ASPIRIN 325 MG TABLET PO SCH (10:34)
[2016-08-27] MEDS: LOSARTAN POTASSIUM 50 MG TABLET. PO SCH (10:34)
[2016-08-27] MEDS: PANTOPRAZOLE 40 MG TABLET.DR. PO SCH (10:34)
[2016-08-27] MEDS: CLOPIDOGREL BISULFATE 75 MG TABLET PO SCH (10:35)
[2016-08-27] MEDS: OMEGA-3 FATTY ACIDS/FISH OIL 1,000 MG CAPSULE. PO SCH (10:35)
[2016-08-27] MEDS: amLODIPine BESYLATE 5 MG TABLET PO SCH (10:35)
[2016-08-27] MEDS: PREGABALIN 50 MG CAPSULE PO SCH (10:36)
[2016-08-27] MEDS: LIDOCAINE (700MG/PATCH) PATCH. TP SCH (10:39)
[2016-08-27 11:00] VITALS: BP 123/51
--- NOTE | 2016-08-27 11:20 | PDOC ---
Infectious Disease Note Vital Sign Vital Signs Vital Signs Date Time Temp Pulse Resp B/P Pulse Ox O2 Delivery O2 Flow Rate FiO2 08/27/16 10:35 61 143/66 08/27/16 09:20 92 Nasal Cannula 2.0 08/27/16 07:00 98.0 18 98.0 Labs Lab Laboratory Tests Test 08/26/16 15:23 08/26/16 16:15 08/26/16 20:00 08/26/16 21:00 White Blood Count 5.7x10^3/uL (4.0-11.0) Red Blood Count 3.89x10^6/uL (3.50-5.40) Hemoglobin 11.6g/dL (12.0-15.5) Hematocrit 34.8% (36.0-47.0) Mean Corpuscular Volume 90fL (79-100) Mean Corpuscular Hemoglobin 30pg (25-35) Mean Corpuscular Hemoglobin Concent 33g/dL (31-37) Red Cell Distribution Width 16.3% (11.5-14.5) Platelet Count 217x10^3/uL (140-400) Neutrophils (%) (Auto) 46% (31-73) Lymphocytes (%) (Auto) 30% (24-48) Monocytes (%) (Auto) 11% (0-9) Eosinophils (%) (Auto) 12% (0-3) Basophils (%) (Auto) 1% (0-3) Neutrophils # (Auto) 2.6x10^3uL (1.8-7.7) Lymphocytes # (Auto) 1.7x10^3/uL (1.0-4.8) Monocytes # (Auto) 0.6x10^3/uL (0.0-1.1) Eosinophils # (Auto) 0.7x10^3/uL (0.0-0.7) Basophils # (Auto) 0.1x10^3/uL (0.0-0.2) Prothrombin Time 11.8SEC (11.7-14.0) Prothromb Time International Ratio 0.9 (0.8-1.1) D-Dimer (Kym) 1.83ug/mlFEU (0.00-0.50) Sodium Level 139mmol/L (136-145) Potassium Level 4.4mmol/L (3.5-5.1) Chloride Level 104mmol/L (98-107) Carbon Dioxide Level 32mmol/L (21-32) Anion Gap 3 (6-14) Blood Urea Nitrogen 20mg/dL (7-20) Creatinine 1.1mg/dL (0.6-1.0) Estimated GFR (Cockcroft-Gault) 47.1 Glucose Level 95mg/dL (70-99) Calcium Level 9.1mg/dL (8.5-10.1) Magnesium Level 2.0mg/dL (1.8-2.4) Total Bilirubin 0.6mg/dL (0.2-1.0) Direct Bilirubin 0.2mg/dL (0.0-0.2) Aspartate Amino Transf (AST/SGOT) 17U/L (15-37) Alanine Aminotransferase (ALT/SGPT) 12U/L (14-59) Alkaline Phosphatase 53U/L (46-116) Creatine Kinase 31U/L (26-192) Creatine Kinase MB (Mass) 0.6ng/mL (0.0-3.6) Creatine Kinase MB Relative Index 1.9% (0-4) Troponin I Quantitative < 0.017ng/mL (0.000-0.055) < 0.017ng/mL (0.000-0.055) FS-Pcc-M-Type Natriuretic Peptide 477pg/mL (0-449) Total Protein 6.9g/dL (6.4-8.2) Albumin 3.2g/dL (3.4-5.0) Lipase 81U/L (73-393) Thyroid Stimulating Hormone (TSH) 3.654uIU/mL (0.358-3.74) Urine Collection Type Unknown Urine Color Yellow Urine Clarity Clear Urine pH 5.5 Urine Specific [place] 1.015 Urine Protein Negativemg/dL (NEG-TRACE) Urine Glucose (UA) Negativemg/dL (NEG) Urine Ketones (Stick) Negativemg/dL (NEG) Urine Blood Trace (NEG) Urine Nitrite Negative (NEG) Urine Bilirubin Negative (NEG) Urine Urobilinogen Dipstick 0.2mg/dL (0.2 mg/dL) Urine Leukocyte Esterase Trace (NEG) Urine RBC 0/HPF (0-2) Urine WBC 1-4/HPF (0-4) Urine Squamous Epithelial Cells Few/LPF Urine Bacteria 0/HPF (0-FEW) Urine Mucus Slight/LPF Influenza Type A Antigen Negative (NEGATIVE) Influenza Type B Antigen Negative (NEGATIVE) Test 08/27/16 00:01 08/27/16 05:00 Troponin I Quantitative < 0.017ng/mL (0.000-0.055) White Blood Count 6.3x10^3/uL (4.0-11.0) Red Blood Count 4.11x10^6/uL (3.50-5.40) Hemoglobin 12.4g/dL (12.0-15.5) Hematocrit 36.8% (36.0-47.0) Mean Corpuscular Volume 89fL (79-100) Mean Corpuscular Hemoglobin 30pg (25-35) Mean Corpuscular Hemoglobin Concent 34g/dL (31-37) Red Cell Distribution Width 16.9% (11.5-14.5) Platelet Count 238x10^3/uL (140-400) Neutrophils (%) (Auto) 41% (31-73) Lymphocytes (%) (Auto) 34% (24-48) Monocytes (%) (Auto) 11% (0-9) Eosinophils (%) (Auto) 13% (0-3) Basophils (%) (Auto) 1% (0-3) Neutrophils # (Auto) 2.6x10^3uL (1.8-7.7) Lymphocytes # (Auto) 2.1x10^3/uL (1.0-4.8) Monocytes # (Auto) 0.7x10^3/uL (0.0-1.1) Eosinophils # (Auto) 0.8x10^3/uL (0.0-0.7) Basophils # (Auto) 0.1x10^3/uL (0.0-0.2) Sodium Level 141mmol/L (136-145) Potassium Level 3.7mmol/L (3.5-5.1) Chloride Level 104mmol/L (98-107) Carbon Dioxide Level 29mmol/L (21-32) Anion Gap 8 (6-14) Blood Urea Nitrogen 19mg/dL (7-20) Creatinine 1.0mg/dL (0.6-1.0) Estimated GFR (Cockcroft-Gault) 52.6 Glucose Level 84mg/dL (70-99) Calcium Level 9.4mg/dL (8.5-10.1) Objective Assessment HCAP CAD HTN Hypothyroidism Plan Plan of Care Continue Zyvox and Levaquin. Add Zosyn f/u ledesma-cultures Monitor labs PT/OT D/w Dr. Renee and Dr. Genao Thank you [phone] Attending Co-Sign The patient was seen and interviewed as well as examined at the bedside. The chart was reviewed. The case was discussed. Agree with the plan of care. TASHA FOSTER APRN Aug 27, 2016 11:20 CHUY GERBER MD Aug 27, 2016 17:00
[2016-08-27] MEDS: fentaNYL 75MCG/HR PATCH 1 PATCH PATCH.TD72 TD SCH (11:54)
[2016-08-27] MEDS ORDERED: GLUCOSAMINE HCL 1500 MG PO SCH (12:00)
[2016-08-27] MEDS: CALCIUM CARBONATE 500 MG TABLET PO SCH (13:36)
[2016-08-27 14:59] VITALS: BP 108/49
[2016-08-27] MEDS: PIPERACILLIN/TAZOBACTAM 3.375 GM in IV NORMAL SALINE 50ML 50 ML IV SCH ×3 (15:13→22:54)
--- NOTE | 2016-08-27 15:43 | HP ---
ADMIT DATE: 08/26/2016 LOCATION: 252. REASON FOR ADMISSION TO THE HOSPITAL: Healthcare-associated pneumonia. The patient lives in an assisted facility. HISTORY OF PRESENT ILLNESS: The patient is an 86-year-old female patient was admitted less than 4 weeks ago to this hospital for pneumonia. She was treated and discharged on oral antibiotics and she is in assisted living facility in [place]. She was having cough and weakness, chest pain, came to the Emergency Room, had a chest x-ray shows infiltrate in the lung. White count was elevated, was admitted with diagnosis of healthcare-associated pneumonia. She was hypoxic at 84% on room air, was given oxygen and she is feeling better. PAST MEDICAL HISTORY: Has history of hypertension, hypothyroidism, heart attacks, had couple of stents in the heart, depression, fibromyalgia, arthritis, spinal stenosis, macular degeneration. PAST SURGICAL HISTORY: Right hip replacement last year, had surgery x 2, back surgeries total 5, had stents in the heart at least 2 or 3, had IVC filter,gall bladder surgery. ALLERGIES: TRAMADOL AND NITROFURANTOIN. PERSONAL HISTORY: No history of smoking, alcohol or drug abuse. SOCIAL HISTORY: Has been in assisted facility for a couple of months now. MEDICATIONS AT HOME: Tylenol every 6, allopurinol 100 mg daily, amlodipine 5 mg daily, vitamin C 500 mg daily, aspirin 325 daily, Dulcolax 10 mg daily, calcium daily, Plavix 75 mg daily, cyclobenzaprine 5 mg every 6, Cymbalta 60 mg daily, fentanyl patch every 48 hours 75 mcg, glucosamine tablets daily, hydrocodone for pain, Avalide 300/12.5 mg daily, levothyroxine 75 mcg daily, Lidoderm patch daily,mvidaily, losartan 100 mg daily, Biofreeze vitamin daily, oxycodone 5 mg every 6, Protonix 40 mg daily, MiraLax 17 g daily, Lyrica 150 mg in the nighttime 100 mg in the daytime, senna daily, vitamin C daily. REVIEW OF SYMPTOMS: LUNGS: Complains of cough, chest pain and shortness of breath. GASTROINTESTINAL: No nausea or vomiting. NEUROLOGICAL: No weakness. The rest of the 14-system was reviewed and negative. PHYSICAL EXAMINATION: VITAL SIGNS: At the time of admission shows temperature 98, pulse 64, respirations 22, blood pressure 144/74, 85% on room air on 2 liters 94%. HEENT: Head is atraumatic. Pupils equal. Oral cavity: No congestion. NECK: Supple. Thyroid not enlarged. JVD not elevated. CHEST: Symmetrical. CARDIOVASCULAR: S1, S2. No murmurs. LUNGS: Clear to auscultation, diminished breath sounds in the right base. ABDOMEN: Soft, bowel sounds present, no mass palpable. EXTERNAL GENITALIA: No Hernandez. RECTAL: Deferred. EXTREMITIES: No calf tenderness, no edema. The patient has scar in the right hip from hip replacement, had a scar in the lumbar area, she had back surgeries. NEUROLOGIC: No focal deficits. Pulses 1+. SKIN: Normal skin turgor. LABORATORY DATA: Shows a white count of 5, hemoglobin 11, platelets 217. Electrolytes: Sodium 139, potassium 4.4, chloride 104, bicarb 32, BUN 20, creatinine 1.1, glucose 95. Magnesium LFTs were normal. TSH is 3.6. INR is 0.9. D-dimer 1.83 was high. Urine negative for infection. Influenza A and B was negative. Chest x-ray: Mild basilar atelectasis, had a CT chest, which shows 3 cm opacity in the right lower lobe, coronary calcifications, no evidence of embolism. EKG shows a sinus rhythm, no acute ischemic changes. FINAL IMPRESSION: 1. Healthcare-associated pneumonia. 2. Right lower lobe infiltrate. 3. Coronary artery disease, history of stents. 4. Hypothyroidism. 5. History of back and hip surgeries multiple times. PLAN: At this time, the patient admitted to the hospital, sputum culture, blood cultures, treat for healthcare-associated pneumonia with Levaquin and Zyvox, oxygen breathing treatments and pulmonary consult, ID is consulted and see how the patient's condition improves. DAWN C[place] MD DR: [email or web address]/ellis JOB#: [id number] / [id number] [place]
--- NOTE | 2016-08-27 15:58 | PDOC2 ---
CONSULT Date of Consult Date of Consult DATE: 08/27/16 TIME: 15:49 Reason for Consult Reason for Consult: Chest pain and SOB Identification/Chief Complaint Chief Complaint Chest pain Source Source: Chart review, Patient History of Present Illness Reason for Visit: 86 yo F brought to the ED for weakness, SOB, and chest pain for 2 days duration. PMH significant for DVT s/p IVC filter, HLD, CAD, HTN, MS. She lives in an assisted facility. She had a recent hospitalization in late june for pneumonia and was discharged on antibiotics. She was feeling fatigued, SOB with a nonproductive cough, and chest pain that radiates to her L shoulder and arm. Her nurse called EMS and EMS reported 84% O2 sat and she was brought to the ED. Chest xray reveals infiltrates in the lung with consolidation in right lower lobe. CTA did not reveal a PE. Her white count was elevated. Past Medical History Cardiovascular: CAD, HTN, MS, Hyperlipidemia GI: GERD Musculoskeletal: Osteoarthritis Endocrine: Hypothyroidism Past Surgical History Past Surgical History: Other Social History ALCOHOL: none Drugs: None Current Problem List Problem List Problems Medical Problems: (1) Hypoxia Status: Acute (2) Pneumonia Status: Acute Current Medications Current Medications Current Medications Sodium Chloride (Iv Sodium Chloride 0.9% 1000ml Bag) 1,000 ml @ 1,000 mls/hr 1X ONCE IV Last administered on 08/26/16 17:26; Start 08/26/16 at 17:00; Stop 08/26/16 at 17:59; Status DC Iohexol (Omnipaque 300 Mg/ml) 60 ml 1X ONCE IV Last administered on 08/26/16 18:05; Start 08/26/16 at 18:00; Stop 08/26/16 at 18:01; Status DC Info 1 each 1 each PRN DAILY PRN MC SEE COMMENTS; Start 08/26/16 at 18:00; Stop 08/28/16 at 17:59 Levofloxacin/ Dextrose 100 ml @ 100 mls/hr Q24H IV ; Start 08/26/16 at 19:45; Status UNV Levofloxacin/ Dextrose (LEVAQUIN 750mg PREMIX) 150 ml @ 100 mls/hr Q48H IV Last administered on 08/26/16 21:00; Start 08/26/16 at 20:00 Acetaminophen (Tylenol) 650 mg PRN Q6HRS PRN PO MILD PAIN; Start 08/26/16 at 20 :30 Allopurinol (Zyloprim) 100 mg HS PO Last administered on 08/26/16 21:27; Start 08/26/16 at 21:00 Amlodipine Besylate (Norvasc) 5 mg DAILY PO Last administered on 08/27/16 10: 35; Start 08/27/16 at 09:00 Aspirin (Gene Aspirin) 325 mg DAILY PO Last administered on 08/27/16 10:34; Start 08/27/16 at 09:00 Bisacodyl (Dulcolax Supp) 10 mg PRN DAILY PRN RC CONSTIPATION; Start 08/26/16 at 20:30 Calcium Carbonate/ Glycine (Oscal) 1,000 mg DAILYWLUN PO Last administered on 13:36; Start 08/27/16 at 12:00 Clopidogrel Bisulfate (Plavix) 75 mg DAILY PO Last administered on 08/27/16 10 :35; Start 08/27/16 at 09:00 Fentanyl (Duragesic 75mcg/ Hr Patch) 1 patch Q3DAYS TD Last administered on 11:54; Start 08/27/16 at 09:00 Guaifenesin (Mucinex) 600 mg BID PO Last administered on 08/27/16 10:34; Start 08/26/16 at 21:00 Acetaminophen/ Hydrocodone Bitart (Lortab 10/325) 1 tab PRN TID PRN PO SEVERE PAIN; Start 08/26/16 at 20:30 Acetaminophen/ Hydrocodone Bitart (Lortab 7.5/325) 1 tab PRN Q4HRS PRN PO MODERATE PAIN; Start 08/26/16 at 20:30 Levothyroxine Sodium (Synthroid) 75 mcg DAILY07 PO Last administered on 06:39; Start 08/27/16 at 07:00 Lidocaine (Lidoderm) 2 patch DAILY TP Last administered on 08/27/16 10:39; Start 08/27/16 at 09:00 Fish Oil (Fish Oil) 1,000 mg DAILY PO Last administered on 08/27/16 10:35; Start 08/27/16 at 09:00 Pantoprazole Sodium (Protonix) 40 mg DAILYAC PO Last administered on 08/27/16 10:34; Start 08/27/16 at 07:30 Polyethylene Glycol (miraLAX PACKET) 17 gm PRN DAILY PRN PO CONSTIPATION; Start 08/26/16 at 20:30 Senna/Docusate Sodium (Senna Plus) 1 tab PRN DAILY PRN PO CONSTIPATION; Start 08/26/16 at 20:30 Multivitamins/ Minerals (Ocuvite Lutein) 2 cap QHS PO Last administered on 08/26 21:27; Start 08/26/16 at 21:00 Ascorbic Acid (Vitamin C) 500 mg QHS PO Last administered on 08/26/16 21:27; Start 08/26/16 at 21:00 Non-Formulary Medication 500 mg HS PO supplement; Start 08/26/16 at 21:00; Status UNV Cyclobenzaprine HCl (Flexeril) 5 mg PRN Q6HRS PRN PO MUSCLE PAIN; Start at 20:45 Duloxetine HCl (Cymbalta) 60 mg QHS PO Last administered on 08/26/16 21:27; Start 08/26/16 at 21:00 Non-Formulary Medication 1,500 mg DAILYWLUN PO supplement; Start 08/27/16 at 12: 00; Status UNV Non-Formulary Medication 1 each DAILY PO blood pressure; Start 08/27/16 at 09:00 ; Status UNV Lactobacillus Acidophilus (Bacid, [place]-Bid) 2 tab DAILY PO Last administered on 08/27/16 10:33; Start 08/27/16 at 09:00 Cetirizine HCl (Zyrtec) 10 mg DAILY PO Last administered on 08/27/16 10:33; Start 08/27/16 at 09:00 Losartan Potassium (Cozaar) 100 mg DAILY PO Last administered on 08/27/16 10: 34; Start 08/27/16 at 09:00 Multi-Ingredient Ointment (Analgesic [place]) 1 naun PRN BID PRN TP MUSCLE PAIN; Start 08/26/16 at 20:45 Multivitamins (Thera M Plus) 1 tab DAILY PO Last administered on 08/27/16 10: 33; Start 08/27/16 at 09:00 Oxycodone HCl (Roxicodone) 5 mg PRN Q4HRS PRN PO SEVERE PAIN Last administered on 08/26/16 23:00; Start 08/26/16 at 20:45 Pregabalin (Lyrica) 100 mg DAILY PO Last administered on 08/27/16 10:36; Start 08/27/16 at 09:00 Pregabalin (Lyrica) 150 mg QHS PO Last administered on 08/26/16 21:27; Start 08/26/16 at 21:00 Albuterol/ Ipratropium (Duoneb) 3 ml RTQID NEB Last administered on 08/27/16 13:09; Start 08/27/16 at 08:00 Albuterol/ Ipratropium (Duoneb) 3 ml 1X ONCE NEB Last administered on 21:23; Start 08/26/16 at 21:00; Stop 08/26/16 at 21:01; Status DC Enoxaparin Sodium 40 mg 40 mg Q24H SQ Last administered on 08/26/16 21:27; Start 08/26/16 at 21:00 Linezolid 300 ml @ 300 mls/hr Q12HR IV ; Start 08/26/16 at 21:15; Stop at 10:06; Status DC Linezolid (Zyvox Premix) 300 ml @ 300 mls/hr 1X ONCE IV Last administered on 08/27/16 11:52; Start 08/27/16 at 08:00; Stop 08/27/16 at 08:59; Status DC Albuterol Sulfate 2.5 mg 2.5 mg PRN Q2HR PRN NEB DYSPNEA; Start 08/27/16 at 08: 15 Linezolid 300 ml @ 300 mls/hr Q12HR IV ; Start 08/27/16 at 21:00 Piperacillin Sod/ Tazobactam Sod/ Sodium Chloride (Zosyn/Iv Sodium Chloride 0.9 % 50ml) 50 ml @ 100 mls/hr Q6HRS IV Last administered on 08/27/16 15:13; Start 08/27/16 at 12:00 Active Scripts Active Levaquin (Levofloxacin) 500 Mg Tablet 500 Mg PO DAILY06 5 Days Mucinex (Guaifenesin) 600 Mg Tablet.er 600 Mg PO BID Reported Vitamin C (Ascorbic Acid) 500 Mg Capsule.er 500 Mg PO HS Senna S Tablet (Sennosides/Docusate Sodium) 1 Each Tablet 1 Each PO PRN STEFANO PRN Oxycodone Hcl 5 Mg Capsule 5 Mg PO PRN Q4HRS PRN Miralax (Polyethylene Glycol 3350) 17 Gm Powd.pack 1 Packet PO PRN DAILY PRN Hydrocodone-Apap 7.5-325 (Hydrocodone Bit/Acetaminophen) 1 Each Tablet 1 Tab PO PRN Q4HRS PRN Dulcolax (Bisacodyl) 10 Mg Supp.rect 10 Mg RC PRN DAILY PRN Cozaar (Losartan Potassium) 100 Mg Tablet 100 Mg PO DAILY Amlodipine Besylate 5 Mg Tablet 5 Mg PO DAILY Acetaminophen 325 Mg Tablet 650 Mg PO PRN Q6HRS PRN Probiotic (Lactobacillus Combo No.11) 1 Each Cap.sprink 1 Each PO DAILY Cyclobenzaprine Hcl 5 Mg Tablet 5 Mg PO PRN Q6HRS PRN Cymbalta (Duloxetine Hcl) 60 Mg Capsule.dr 60 Mg PO HS Claritin (Loratadine) 10 Mg Tablet 1 Tab PO DAILY Biofreeze (Menthol) 118 Ml Gel..ml. 118 Ml TP BID Aspirin 325 Mg Tablet 1 Tab PO DAILY Levothyroxine Sodium 75 Mcg Tablet 1 Tab PO DAILY Ocuvite Lutein & Zeaxanthin Cp (Vit C/E/Zn/Coppr/Lutein/Zeaxan) 1 Each Capsule 2 Each PO HS Allopurinol 100 Mg Tablet 1 Tab PO HS Calcium (Calcium Carbonate) 500 Mg Tablet 1,000 Mg PO DAILYWLUN Lidoderm (Lidocaine) 700 Mg Adh..patch 2 Patch TP DAILY Glucosamine Hcl 1,500 Mg Tablet 1,500 Mg PO DAILYWLUN FENTANYL 75mcg/hr (Fentanyl) 1 Each Patch.td72 1 Patch TD PRN Q48HR PRN Lyrica (Pregabalin) 150 Mg Capsule 1 Cap PO HS Lyrica (Pregabalin) 100 Mg Capsule 1 Cap PO DAILY Protonix (Pantoprazole Sodium) 40 Mg Tablet.dr 1 Tab PO DAILY Clopidogrel (Clopidogrel Bisulfate) 75 Mg Tablet 1 Tab PO DAILY Avalide 300-12.5 Mg Tablet (Irbesartan/Hydrochlorothiazide) 1 Each Tablet 1 Each PO DAILY Vitamin C (Ascorbic Acid) 500 Mg Capsule.er 500 Mg PO HS Multivitamins (Multivitamin) 1 Each Tablet 1 Tab PO DAILY Pv Fish Oil 1,000 Mg Softgel ([place]-3 Fatty Acids/Vitamin E) 1,000 Mg Capsule 1 Cap PO DAILY Hydrocodone-Apap 10-325 (Hydrocodone Bit/Acetaminophen) 1 Each Tablet 1 Tab PO PRN TID PRN Allergies Allergies: Coded Allergies: nitrofurantoin (Verified Allergy, Intermediate, 12/25/14) tramadol (Verified Allergy, Intermediate, 12/25/14) Physical Exam General: Alert, Oriented X3, Cooperative HEENT: Atraumatic, EOMI Lungs: Other (Rhonchi in R lower lobes, expiratory wheezes throughout) Heart: Regular rate, Normal S1, Normal S2, Other (Systolic murmur ) Extremities: No clubbing, No cyanosis, No edema Neuro: Normal speech Psych/Mental Status: Mental status NL Vitals VITALS Vital Signs Date Time Temp Pulse Resp B/P Pulse Ox O2 Delivery O2 Flow Rate FiO2 08/27/16 14:59 98.4 56 16 108/49 90 Nasal Cannula 2.0 98.4 Labs Labs Laboratory Tests Test 08/26/16 15:23 08/26/16 16:15 08/26/16 20:00 08/26/16 21:00 White Blood Count 5.7x10^3/uL (4.0-11.0) Red Blood Count 3.89x10^6/uL (3.50-5.40) Hemoglobin 11.6g/dL (12.0-15.5) Hematocrit 34.8% (36.0-47.0) Mean Corpuscular Volume 90fL (79-100) Mean Corpuscular Hemoglobin 30pg (25-35) Mean Corpuscular Hemoglobin Concent 33g/dL (31-37) Red Cell Distribution Width 16.3% (11.5-14.5) Platelet Count 217x10^3/uL (140-400) Neutrophils (%) (Auto) 46% (31-73) Lymphocytes (%) (Auto) 30% (24-48) Monocytes (%) (Auto) 11% (0-9) Eosinophils (%) (Auto) 12% (0-3) Basophils (%) (Auto) 1% (0-3) Neutrophils # (Auto) 2.6x10^3uL (1.8-7.7) Lymphocytes # (Auto) 1.7x10^3/uL (1.0-4.8) Monocytes # (Auto) 0.6x10^3/uL (0.0-1.1) Eosinophils # (Auto) 0.7x10^3/uL (0.0-0.7) Basophils # (Auto) 0.1x10^3/uL (0.0-0.2) Prothrombin Time 11.8SEC (11.7-14.0) Prothromb Time International Ratio 0.9 (0.8-1.1) D-Dimer (Kym) 1.83ug/mlFEU (0.00-0.50) Sodium Level 139mmol/L (136-145) Potassium Level 4.4mmol/L (3.5-5.1) Chloride Level 104mmol/L (98-107) Carbon Dioxide Level 32mmol/L (21-32) Anion Gap 3 (6-14) Blood Urea Nitrogen 20mg/dL (7-20) Creatinine 1.1mg/dL (0.6-1.0) Estimated GFR (Cockcroft-Gault) 47.1 Glucose Level 95mg/dL (70-99) Calcium Level 9.1mg/dL (8.5-10.1) Magnesium Level 2.0mg/dL (1.8-2.4) Total Bilirubin 0.6mg/dL (0.2-1.0) Direct Bilirubin 0.2mg/dL (0.0-0.2) Aspartate Amino Transf (AST/SGOT) 17U/L (15-37) Alanine Aminotransferase (ALT/SGPT) 12U/L (14-59) Alkaline Phosphatase 53U/L (46-116) Creatine Kinase 31U/L (26-192) Creatine Kinase MB (Mass) 0.6ng/mL (0.0-3.6) Creatine Kinase MB Relative Index 1.9% (0-4) Troponin I Quantitative < 0.017ng/mL (0.000-0.055) < 0.017ng/mL (0.000-0.055) QJ-Woj-C-Type Natriuretic Peptide 477pg/mL (0-449) Total Protein 6.9g/dL (6.4-8.2) Albumin 3.2g/dL (3.4-5.0) Lipase 81U/L (73-393) Thyroid Stimulating Hormone (TSH) 3.654uIU/mL (0.358-3.74) Urine Collection Type Unknown Urine Color Yellow Urine Clarity Clear Urine pH 5.5 Urine Specific [place] 1.015 Urine Protein Negativemg/dL (NEG-TRACE) Urine Glucose (UA) Negativemg/dL (NEG) Urine Ketones (Stick) Negativemg/dL (NEG) Urine Blood Trace (NEG) Urine Nitrite Negative (NEG) Urine Bilirubin Negative (NEG) Urine Urobilinogen Dipstick 0.2mg/dL (0.2 mg/dL) Urine Leukocyte Esterase Trace (NEG) Urine RBC 0/HPF (0-2) Urine WBC 1-4/HPF (0-4) Urine Squamous Epithelial Cells Few/LPF Urine Bacteria 0/HPF (0-FEW) Urine Mucus Slight/LPF Influenza Type A Antigen Negative (NEGATIVE) Influenza Type B Antigen Negative (NEGATIVE) Test 08/27/16 00:01 08/27/16 05:00 Troponin I Quantitative < 0.017ng/mL (0.000-0.055) White Blood Count 6.3x10^3/uL (4.0-11.0) Red Blood Count 4.11x10^6/uL (3.50-5.40) Hemoglobin 12.4g/dL (12.0-15.5) Hematocrit 36.8% (36.0-47.0) Mean Corpuscular Volume 89fL (79-100) Mean Corpuscular Hemoglobin 30pg (25-35) Mean Corpuscular Hemoglobin Concent 34g/dL (31-37) Red Cell Distribution Width 16.9% (11.5-14.5) Platelet Count 238x10^3/uL (140-400) Neutrophils (%) (Auto) 41% (31-73) Lymphocytes (%) (Auto) 34% (24-48) Monocytes (%) (Auto) 11% (0-9) Eosinophils (%) (Auto) 13% (0-3) Basophils (%) (Auto) 1% (0-3) Neutrophils # (Auto) 2.6x10^3uL (1.8-7.7) Lymphocytes # (Auto) 2.1x10^3/uL (1.0-4.8) Monocytes # (Auto) 0.7x10^3/uL (0.0-1.1) Eosinophils # (Auto) 0.8x10^3/uL (0.0-0.7) Basophils # (Auto) 0.1x10^3/uL (0.0-0.2) Sodium Level 141mmol/L (136-145) Potassium Level 3.7mmol/L (3.5-5.1) Chloride Level 104mmol/L (98-107) Carbon Dioxide Level 29mmol/L (21-32) Anion Gap 8 (6-14) Blood Urea Nitrogen 19mg/dL (7-20) Creatinine 1.0mg/dL (0.6-1.0) Estimated GFR (Cockcroft-Gault) 52.6 Glucose Level 84mg/dL (70-99) Calcium Level 9.4mg/dL (8.5-10.1) Laboratory Tests Test 08/26/16 16:15 08/26/16 20:00 08/26/16 21:00 08/27/16 00:01 Urine Collection Type Unknown Urine Color Yellow Urine Clarity Clear Urine pH 5.5 Urine Specific [place] 1.015 Urine Protein Negativemg/dL (NEG-TRACE) Urine Glucose (UA) Negativemg/dL (NEG) Urine Ketones (Stick) Negativemg/dL (NEG) Urine Blood Trace (NEG) Urine Nitrite Negative (NEG) Urine Bilirubin Negative (NEG) Urine Urobilinogen Dipstick 0.2mg/dL (0.2 mg/dL) Urine Leukocyte Esterase Trace (NEG) Urine RBC 0/HPF (0-2) Urine WBC 1-4/HPF (0-4) Urine Squamous Epithelial Cells Few/LPF Urine Bacteria 0/HPF (0-FEW) Urine Mucus Slight/LPF Troponin I Quantitative < 0.017ng/mL (0.000-0.055) < 0.017ng/mL (0.000-0.055) Influenza Type A Antigen Negative (NEGATIVE) Influenza Type B Antigen Negative (NEGATIVE) Test 08/27/16 05:00 White Blood Count 6.3x10^3/uL (4.0-11.0) Red Blood Count 4.11x10^6/uL (3.50-5.40) Hemoglobin 12.4g/dL (12.0-15.5) Hematocrit 36.8% (36.0-47.0) Mean Corpuscular Volume 89fL (79-100) Mean Corpuscular Hemoglobin 30pg (25-35) Mean Corpuscular Hemoglobin Concent 34g/dL (31-37) Red Cell Distribution Width 16.9% (11.5-14.5) Platelet Count 238x10^3/uL (140-400) Neutrophils (%) (Auto) 41% (31-73) Lymphocytes (%) (Auto) 34% (24-48) Monocytes (%) (Auto) 11% (0-9) Eosinophils (%) (Auto) 13% (0-3) Basophils (%) (Auto) 1% (0-3) Neutrophils # (Auto) 2.6x10^3uL (1.8-7.7) Lymphocytes # (Auto) 2.1x10^3/uL (1.0-4.8) Monocytes # (Auto) 0.7x10^3/uL (0.0-1.1) Eosinophils # (Auto) 0.8x10^3/uL (0.0-0.7) Basophils # (Auto) 0.1x10^3/uL (0.0-0.2) Sodium Level 141mmol/L (136-145) Potassium Level 3.7mmol/L (3.5-5.1) Chloride Level 104mmol/L (98-107) Carbon Dioxide Level 29mmol/L (21-32) Anion Gap 8 (6-14) Blood Urea Nitrogen 19mg/dL (7-20) Creatinine 1.0mg/dL (0.6-1.0) Estimated GFR (Cockcroft-Gault) 52.6 Glucose Level 84mg/dL (70-99) Calcium Level 9.4mg/dL (8.5-10.1) Assessment/Plan Assessment/Plan Assessment: Pneumonia CAD HTN HLD Hypothyroidism Plan: Echocardiogram first to assess LV function -Unlikely MS due to negative serial troponins Continue cardiac home meds Agree with primary team's plan Thank you for the opportunity to take part in the care of this patient. EDELMIRA KNOWLES MD Aug 27, 2016 15:58
[2016-08-27 19:20] VITALS: BP 113/71
[2016-08-27] MEDS: ALLOPURINOL 100 MG TABLET. PO SCH (20:53)
[2016-08-27] MEDS: ASCORBIC ACID 500 MG TABLET PO SCH (20:53)
[2016-08-27] MEDS: PREGABALIN 75 MG CAPSULE PO SCH (20:53)
[2016-08-27] MEDS: ENOXAPARIN 40 MG/0.4 ML SYRINGE. SQ SCH (20:54)
[2016-08-27] MEDS: MULTIVITAMIN EYE FORMULA CAPSULE. PO SCH (20:54)
[2016-08-27] MEDS: DULoxetine HCL 30 MG CAPSULE.DR PO SCH (20:54)
[2016-08-27 23:42] VITALS: BP 108/54
[2016-08-28 03:30] VITALS: BP 115/47
[2016-08-28] MEDS: LEVOTHYROXINE 75 MCG TABLET PO SCH (06:30)
[2016-08-28] MEDS: PIPERACILLIN/TAZOBACTAM 3.375 GM in IV NORMAL SALINE 50ML 50 ML IV SCH ×4 (06:30→22:58)
[2016-08-28 07:33] VITALS: BP 116/54
[2016-08-28] MEDS: IPRATRPIUM/ALBUTEROL 0.5/2.5MG 3 ML NEBU. NEB SCH ×4 (07:35→19:01)
--- NOTE | 2016-08-28 07:41 | CONS ---
DATE OF CONSULTATION: 08/26/2016 REFERRING PHYSICIAN: Dr. Renee. REASON FOR CONSULTATION: Possible pneumonia. HISTORY OF PRESENT ILLNESS: This patient is an 86-year-old female who was recently hospitalized about a month ago for pneumonia. She was discharged on cefpodoxime to a long-term facility. According to the patient, she was recovering well. She was regaining her strength and eventually returned home. About 4 days ago, she began not to feel well. She was sleeping more than usual. She had skipped some meals. She has had a productive cough for the past several weeks, but felt that it was getting somewhat worse associated with some mild shortness of air and chest discomfort as well as generalized weakness. Denies fevers, chills or sweats. On arrival to the ER, she was hypoxic requiring oxygen supplementation. A CT angiography chest with IV contrast showed a 2.9 x 2.6 cm focus of airspace opacity representing a mass or focus of consolidation in the right lower lobe of the lung as well as a 1 cm faint focus of airspace opacity in the left lower lobe, likely atelectasis or infiltrate. Influenza screen negative. Her white blood cell count was normal. Paredes cultures have been ordered. She was started on Zyvox and levofloxacin. The patient is feeling better. She is participating in physical therapy. Denies headache, nasal/sinus congestion or sore throat. She occasionally gets choked up on food with swallowing. Denies nausea, vomiting or diarrhea. Denies dysuria, frequency or urgency. Denies muscle aches or joint pains. PAST MEDICAL HISTORY: E. coli urinary tract infection, resistant to ampicillin, gentamicin, tetracycline, trimethoprim/sulfa, intermittent ampicillin/sulbactam, tobramycin, otherwise sensitive. Arthritis, depression, fibromyalgia, gastroesophageal reflux disease, hypertension, hypothyroidism, coronary artery disease with a history of myocardial infarction, spinal stenosis, macular degeneration. PAST SURGICAL HISTORY: Hip replacement, IVC filter, multiple back surgeries, bladder lift, sinus surgery. FAMILY HISTORY: Positive for cancer. SOCIAL HISTORY: The patient lives in an assisted living facility. ALLERGIES: NITROFURANTOIN, REACTION UNKNOWN. TRAMADOL. MEDICATIONS: Zyvox, levofloxacin. Other medications are available and have been reviewed on the JUN. REVIEW OF SYSTEMS: As per HPI, otherwise all other review of systems negative. PHYSICAL EXAMINATION: GENERAL: female walking to her chair with a walker and standby assist. VITAL SIGNS: Afebrile. Blood pressure 143/66, heart rate 61, respiratory rate 18, pulse oximetry is 92% on 2 liters nasal cannula. Weight is 205 pounds. HEENT: Pupils equally round. Normal conjunctivae. Oral mucosa is pink and moist. LUNGS: Clear to auscultation. HEART: Normal S1 and S2. ABDOMEN: Nondistended. Bowel sounds are present, soft, nontender. EXTREMITIES: Bilateral lower extremity trace edema. No cyanosis. SKIN: Without rash. Warm to touch. NEUROLOGIC: Alert and oriented x 3. Moves all extremities. LABORATORY DATA: Today's WBC 6.3, hemoglobin 12.4, platelet count 238,000. Electrolytes unremarkable. Creatinine 1.0, BUN 19. Troponin less than 0.017. TSH 3.654. BNP 477. Urinalysis unremarkable for infection. Influenza screen negative. Paredes culture is pending. Chest CTA per HPI. Chest x-ray shows mild bibasilar atelectasis/infiltrate. IMPRESSION: 1. Healthcare-acquired pneumonia. 2. Coronary artery disease. 3. Hypertension. 4. Hypothyroidism. PLAN: Continue Zyvox and levofloxacin. We will add Zosyn for additional coverage. Monitor laboratory values and follow up on paredes cultures. PT and OT. Thank you, Dr. Renee for asking us to participate in this patient's care. Should you have further questions or concerns, please call. CHUY GERBER MD DR: MOISÉS/ellis JOB#: [id number] / [id number]
[2016-08-28] MEDS: PREGABALIN 50 MG CAPSULE PO SCH (08:28)
[2016-08-28] MEDS: PANTOPRAZOLE 40 MG TABLET.DR. PO SCH (08:28)
[2016-08-28] MEDS: ASPIRIN 325 MG TABLET PO SCH (08:29)
[2016-08-28] MEDS: LOSARTAN POTASSIUM 50 MG TABLET. PO SCH (08:29)
[2016-08-28] MEDS: amLODIPine BESYLATE 5 MG TABLET PO SCH (08:30)
[2016-08-28] MEDS: LACTOBACILLUS ACIDOPH & BULGAR 1 TABLET. PO SCH (08:30)
[2016-08-28] MEDS: CLOPIDOGREL BISULFATE 75 MG TABLET PO SCH (08:30)
[2016-08-28] MEDS: LIDOCAINE (700MG/PATCH) PATCH. TP SCH (08:30)
[2016-08-28] MEDS: OMEGA-3 FATTY ACIDS/FISH OIL 1,000 MG CAPSULE. PO SCH (08:30)
[2016-08-28] MEDS: CETIRIZINE HCL 10 MG TABLET. PO SCH (08:30)
[2016-08-28] MEDS: MULTIVITAMIN with MINERAL TABLET. PO SCH (08:32)
--- NOTE | 2016-08-28 09:02 | PDOC ---
Infectious Disease Note Subjective Subjective Feeling better over all Constipated, no BM in 3 days ROS ROS GEN: Denies fevers, chills, sweats HEENT: Denies sore throat CV: Denies chest pain RESP: Denies shortness of air, cough GI: Denies n/v/cramps NEURO: Denies confusion, dizziness Vital Sign Vital Signs Vital Signs Date Time Temp Pulse Resp B/P Pulse Ox O2 Delivery O2 Flow Rate FiO2 08/28/16 08:30 58 116/54 08/28/16 08:00 Nasal Cannula 2.0 08/28/16 07:35 95 08/28/16 07:33 98.8 16 98.8 Physical Exam PHYSICAL EXAM GENERAL: Propped up in bed, eating LUNGS: Clear to auscultation. HEART: Normal S1 and S2. + murmur ABDOMEN: Nondistended. Bowel sounds are present, soft, nontender. EXTREMITIES: Bilateral lower extremity trace edema. No cyanosis. SKIN: Without rash. Warm to touch. NEUROLOGIC: Alert and oriented x 3. Moves all extremities. Labs Micro BLOOD CULTURE Preliminary NO GROWTH AFTER 1 DAY Objective Assessment HCAP CAD HTN Hypothyroidism Plan Plan of Care Continue Zyvox, Zosyn and Levaquin. f/u ledesma-cultures Monitor labs PT/OT Attending Co-Sign The patient was seen and interviewed as well as examined at the bedside. The chart was reviewed. The case was discussed. Agree with the plan of care. TASHA FOSTER APRN Aug 28, 2016 09:02 CHUY GERBER MD Aug 28, 2016 13:47
[2016-08-28 11:00] VITALS: BP 125/53
--- NOTE | 2016-08-28 11:48 | PDOC ---
IM PROGRESS NOTES- Subjective Subjective No dyspnea,cough. Objective Vitals Vital Signs Date Time Temp Pulse Resp B/P Pulse Ox O2 Delivery O2 Flow Rate FiO2 08/28/16 11:27 95 Nasal Cannula 2.0 08/28/16 08:30 58 116/54 08/28/16 07:33 98.8 16 98.8 Input & Output Intake and Output 08/28/16 07:00 Intake Total 1500 ml Output Total 1400 ml Balance 100 ml Intake Oral 800 ml IV Total 700 ml Output Urine Total 1400 ml # Voids 2 Physical Exam Physical Exam General appearance - alert,ill appearing, and in mild distress and oriented to person, place, and time Mental Status - alert, oriented to person, place, and time, affect appropriate to mood Head - normal Chest - decreased air entry Heart - S1 and S2 normal Abdomen - soft, nontender, nondistended, no masses or organomegaly Neurological - alert and oriented Musculoskeletal - no muscular tenderness noted Extremities - no pedal edema Skin - warm and dry Labs Laboratory Tests Test 08/26/16 15:23 08/26/16 16:15 08/26/16 20:00 08/26/16 21:00 White Blood Count 5.7x10^3/uL (4.0-11.0) Red Blood Count 3.89x10^6/uL (3.50-5.40) Hemoglobin 11.6g/dL (12.0-15.5) Hematocrit 34.8% (36.0-47.0) Mean Corpuscular Volume 90fL (79-100) Mean Corpuscular Hemoglobin 30pg (25-35) Mean Corpuscular Hemoglobin Concent 33g/dL (31-37) Red Cell Distribution Width 16.3% (11.5-14.5) Platelet Count 217x10^3/uL (140-400) Neutrophils (%) (Auto) 46% (31-73) Lymphocytes (%) (Auto) 30% (24-48) Monocytes (%) (Auto) 11% (0-9) Eosinophils (%) (Auto) 12% (0-3) Basophils (%) (Auto) 1% (0-3) Neutrophils # (Auto) 2.6x10^3uL (1.8-7.7) Lymphocytes # (Auto) 1.7x10^3/uL (1.0-4.8) Monocytes # (Auto) 0.6x10^3/uL (0.0-1.1) Eosinophils # (Auto) 0.7x10^3/uL (0.0-0.7) Basophils # (Auto) 0.1x10^3/uL (0.0-0.2) Prothrombin Time 11.8SEC (11.7-14.0) Prothromb Time International Ratio 0.9 (0.8-1.1) D-Dimer (Kym) 1.83ug/mlFEU (0.00-0.50) Sodium Level 139mmol/L (136-145) Potassium Level 4.4mmol/L (3.5-5.1) Chloride Level 104mmol/L (98-107) Carbon Dioxide Level 32mmol/L (21-32) Anion Gap 3 (6-14) Blood Urea Nitrogen 20mg/dL (7-20) Creatinine 1.1mg/dL (0.6-1.0) Estimated GFR (Cockcroft-Gault) 47.1 Glucose Level 95mg/dL (70-99) Calcium Level 9.1mg/dL (8.5-10.1) Magnesium Level 2.0mg/dL (1.8-2.4) Total Bilirubin 0.6mg/dL (0.2-1.0) Direct Bilirubin 0.2mg/dL (0.0-0.2) Aspartate Amino Transf (AST/SGOT) 17U/L (15-37) Alanine Aminotransferase (ALT/SGPT) 12U/L (14-59) Alkaline Phosphatase 53U/L (46-116) Creatine Kinase 31U/L (26-192) Creatine Kinase MB (Mass) 0.6ng/mL (0.0-3.6) Creatine Kinase MB Relative Index 1.9% (0-4) Troponin I Quantitative < 0.017ng/mL (0.000-0.055) < 0.017ng/mL (0.000-0.055) AG-Tvk-X-Type Natriuretic Peptide 477pg/mL (0-449) Total Protein 6.9g/dL (6.4-8.2) Albumin 3.2g/dL (3.4-5.0) Lipase 81U/L (73-393) Thyroid Stimulating Hormone (TSH) 3.654uIU/mL (0.358-3.74) Urine Collection Type Unknown Urine Color Yellow Urine Clarity Clear Urine pH 5.5 Urine Specific [place] 1.015 Urine Protein Negativemg/dL (NEG-TRACE) Urine Glucose (UA) Negativemg/dL (NEG) Urine Ketones (Stick) Negativemg/dL (NEG) Urine Blood Trace (NEG) Urine Nitrite Negative (NEG) Urine Bilirubin Negative (NEG) Urine Urobilinogen Dipstick 0.2mg/dL (0.2 mg/dL) Urine Leukocyte Esterase Trace (NEG) Urine RBC 0/HPF (0-2) Urine WBC 1-4/HPF (0-4) Urine Squamous Epithelial Cells Few/LPF Urine Bacteria 0/HPF (0-FEW) Urine Mucus Slight/LPF Influenza Type A Antigen Negative (NEGATIVE) Influenza Type B Antigen Negative (NEGATIVE) Test 08/27/16 00:01 08/27/16 05:00 Troponin I Quantitative < 0.017ng/mL (0.000-0.055) White Blood Count 6.3x10^3/uL (4.0-11.0) Red Blood Count 4.11x10^6/uL (3.50-5.40) Hemoglobin 12.4g/dL (12.0-15.5) Hematocrit 36.8% (36.0-47.0) Mean Corpuscular Volume 89fL (79-100) Mean Corpuscular Hemoglobin 30pg (25-35) Mean Corpuscular Hemoglobin Concent 34g/dL (31-37) Red Cell Distribution Width 16.9% (11.5-14.5) Platelet Count 238x10^3/uL (140-400) Neutrophils (%) (Auto) 41% (31-73) Lymphocytes (%) (Auto) 34% (24-48) Monocytes (%) (Auto) 11% (0-9) Eosinophils (%) (Auto) 13% (0-3) Basophils (%) (Auto) 1% (0-3) Neutrophils # (Auto) 2.6x10^3uL (1.8-7.7) Lymphocytes # (Auto) 2.1x10^3/uL (1.0-4.8) Monocytes # (Auto) 0.7x10^3/uL (0.0-1.1) Eosinophils # (Auto) 0.8x10^3/uL (0.0-0.7) Basophils # (Auto) 0.1x10^3/uL (0.0-0.2) Sodium Level 141mmol/L (136-145) Potassium Level 3.7mmol/L (3.5-5.1) Chloride Level 104mmol/L (98-107) Carbon Dioxide Level 29mmol/L (21-32) Anion Gap 8 (6-14) Blood Urea Nitrogen 19mg/dL (7-20) Creatinine 1.0mg/dL (0.6-1.0) Estimated GFR (Cockcroft-Gault) 52.6 Glucose Level 84mg/dL (70-99) Calcium Level 9.4mg/dL (8.5-10.1) Meds Current Medications Calcium Carbonate/ Glycine (Oscal) 1,000 mg DAILYWLUN PO Last administered on 13:36; Start 08/27/16 at 12:00 Linezolid 300 ml @ 300 mls/hr Q12HR IV Last administered on 08/28/16 08:31; Start 08/27/16 at 21:00 Non-Formulary Medication 1500 mg 1,500 mg DAILYWLUN PO supplement; Start at 12:00; Status UNV Piperacillin Sod/ Tazobactam Sod/ Sodium Chloride (Zosyn/Iv Sodium Chloride 0.9 % 50ml) 50 ml @ 100 mls/hr Q6HRS IV Last administered on 08/28/16 06:30; Start 08/27/16 at 12:00 Assessment Assessment 1. Healthcare-associated pneumonia. 2. Right lower lobe infiltrate. 3. Coronary artery disease, history of stents. 4. Hypothyroidism. 5. History of back and hip surgery. PLAN: await sputum culture, blood cultures, treat for healthcare-associated pneumonia with Levaquin and Zyvox, Zosyn. oxygen breathing treatments and pulmonary consult, ID is consulted Plan Plan For more details regarding further plans, please refer to the orders. CECY RUGGIERO MD Aug 28, 2016 11:48
[2016-08-28] MEDS: CALCIUM CARBONATE 500 MG TABLET PO SCH (12:18)
[2016-08-28 15:00] VITALS: BP 112/58
--- NOTE | 2016-08-28 15:49 | PDOC ---
PROGRESS NOTES Subjective Subjective Patient is very weak but feels a little better today. Less short of breath. No chest pains. Objective Objective Vital Signs Date Time Temp Pulse Resp B/P Pulse Ox O2 Delivery O2 Flow Rate FiO2 08/28/16 15:17 97 Nasal Cannula 2.0 08/28/16 11:00 97.6 61 16 125/53 97.6 Intake and Output 08/28/16 07:00 Intake Total 1500 ml Output Total 1400 ml Balance 100 ml Intake Oral 800 ml IV Total 700 ml Output Urine Total 1400 ml # Voids 2 Physical Exam Physical Exam Moving air better. No Rales. Heart sounds unchanged Assessment Assessment Patient seems to be progressing slowly. The CT of the chest showed an area that cannot be differentiated in between an infiltrate or a mass. I agree with continuing with current treatment and antibiotics and in doing a follow-up CT in 6-8 weeks. Problems Medical Problems: (1) Hypoxia Status: Acute (2) Pneumonia Status: Acute Comment Review of Relevant I have reviewed the following items poornima (where applicable) has been applied. Labs Laboratory Tests Test 08/26/16 16:15 08/26/16 20:00 08/26/16 21:00 08/27/16 00:01 Urine Collection Type Unknown Urine Color Yellow Urine Clarity Clear Urine pH 5.5 Urine Specific [place] 1.015 Urine Protein Negativemg/dL (NEG-TRACE) Urine Glucose (UA) Negativemg/dL (NEG) Urine Ketones (Stick) Negativemg/dL (NEG) Urine Blood Trace (NEG) Urine Nitrite Negative (NEG) Urine Bilirubin Negative (NEG) Urine Urobilinogen Dipstick 0.2mg/dL (0.2 mg/dL) Urine Leukocyte Esterase Trace (NEG) Urine RBC 0/HPF (0-2) Urine WBC 1-4/HPF (0-4) Urine Squamous Epithelial Cells Few/LPF Urine Bacteria 0/HPF (0-FEW) Urine Mucus Slight/LPF Troponin I Quantitative < 0.017ng/mL (0.000-0.055) < 0.017ng/mL (0.000-0.055) Influenza Type A Antigen Negative (NEGATIVE) Influenza Type B Antigen Negative (NEGATIVE) Test 08/27/16 05:00 White Blood Count 6.3x10^3/uL (4.0-11.0) Red Blood Count 4.11x10^6/uL (3.50-5.40) Hemoglobin 12.4g/dL (12.0-15.5) Hematocrit 36.8% (36.0-47.0) Mean Corpuscular Volume 89fL (79-100) Mean Corpuscular Hemoglobin 30pg (25-35) Mean Corpuscular Hemoglobin Concent 34g/dL (31-37) Red Cell Distribution Width 16.9% (11.5-14.5) Platelet Count 238x10^3/uL (140-400) Neutrophils (%) (Auto) 41% (31-73) Lymphocytes (%) (Auto) 34% (24-48) Monocytes (%) (Auto) 11% (0-9) Eosinophils (%) (Auto) 13% (0-3) Basophils (%) (Auto) 1% (0-3) Neutrophils # (Auto) 2.6x10^3uL (1.8-7.7) Lymphocytes # (Auto) 2.1x10^3/uL (1.0-4.8) Monocytes # (Auto) 0.7x10^3/uL (0.0-1.1) Eosinophils # (Auto) 0.8x10^3/uL (0.0-0.7) Basophils # (Auto) 0.1x10^3/uL (0.0-0.2) Sodium Level 141mmol/L (136-145) Potassium Level 3.7mmol/L (3.5-5.1) Chloride Level 104mmol/L (98-107) Carbon Dioxide Level 29mmol/L (21-32) Anion Gap 8 (6-14) Blood Urea Nitrogen 19mg/dL (7-20) Creatinine 1.0mg/dL (0.6-1.0) Estimated GFR (Cockcroft-Gault) 52.6 Glucose Level 84mg/dL (70-99) Calcium Level 9.4mg/dL (8.5-10.1) Microbiology 08/27/16 Blood Culture - Preliminary, Resulted NO GROWTH AFTER 1 DAY Medications Current Medications Sodium Chloride (Iv Sodium Chloride 0.9% 1000ml Bag) 1,000 ml @ 1,000 mls/hr 1X ONCE IV Last administered on 08/26/16t 17:26; Start 08/26/16 at 17:00; Stop 08/26/16 at 17:59; Status DC Iohexol (Omnipaque 300 Mg/ml) 60 ml 1X ONCE IV Last administered on 08/26/16 18:05; Start 08/26/16 at 18:00; Stop 08/26/16 at 18:01; Status DC Info 1 each 1 each PRN DAILY PRN MC SEE COMMENTS; Start 08/26/16 at 18:00; Stop 08/28/16 at 17:59 Levofloxacin/ Dextrose 100 ml @ 100 mls/hr Q24H IV ; Start 08/26/16 at 19:45; Status UNV Levofloxacin/ Dextrose (LEVAQUIN 750mg PREMIX) 150 ml @ 100 mls/hr Q48H IV Last administered on 08/26/16 21:00; Start 08/26/16 at 20:00 Acetaminophen (Tylenol) 650 mg PRN Q6HRS PRN PO MILD PAIN; Start 08/26/16 at 20 :30 Allopurinol (Zyloprim) 100 mg HS PO Last administered on 08/27/16 20:53; Start 08/26/16 at 21:00 Amlodipine Besylate (Norvasc) 5 mg DAILY PO Last administered on 08/28/16 08: 30; Start 08/27/16 at 09:00 Aspirin (Gene Aspirin) 325 mg DAILY PO Last administered on 08/28/16 08:29; Start 08/27/16 at 09:00 Bisacodyl (Dulcolax Supp) 10 mg PRN DAILY PRN RC CONSTIPATION; Start 08/26/16 at 20:30 Calcium Carbonate/ Glycine (Oscal) 1,000 mg DAILYWLUN PO Last administered on 12:18; Start 08/27/16 at 12:00 Clopidogrel Bisulfate (Plavix) 75 mg DAILY PO Last administered on 08/28/16 08 :30; Start 08/27/16 at 09:00 Fentanyl (Duragesic 75mcg/ Hr Patch) 1 patch Q3DAYS TD Last administered on 11:54; Start 08/27/16 at 09:00 Guaifenesin (Mucinex) 600 mg BID PO Last administered on 08/28/16 08:29; Start 08/26/16 at 21:00 Acetaminophen/ Hydrocodone Bitart (Lortab 10/325) 1 tab PRN TID PRN PO SEVERE PAIN; Start 08/26/16 at 20:30 Acetaminophen/ Hydrocodone Bitart (Lortab 7.5/325) 1 tab PRN Q4HRS PRN PO MODERATE PAIN; Start 08/26/16 at 20:30 Levothyroxine Sodium (Synthroid) 75 mcg DAILY07 PO Last administered on 06:30; Start 08/27/16 at 07:00 Lidocaine (Lidoderm) 2 patch DAILY TP Last administered on 08/28/16 08:30; Start 08/27/16 at 09:00 Fish Oil (Fish Oil) 1,000 mg DAILY PO Last administered on 08/28/16 08:30; Start 08/27/16 at 09:00 Pantoprazole Sodium (Protonix) 40 mg DAILYAC PO Last administered on 08/28/16 08:28; Start 08/27/16 at 07:30 Polyethylene Glycol (miraLAX PACKET) 17 gm PRN DAILY PRN PO CONSTIPATION Last administered on 08/28/16 08:44; Start 08/26/16 at 20:30 Senna/Docusate Sodium (Senna Plus) 1 tab PRN DAILY PRN PO CONSTIPATION; Start 08/26/16 at 20:30 Multivitamins/ Minerals (Ocuvite Lutein) 2 cap QHS PO Last administered on 08/27 20:54; Start 08/26/16 at 21:00 Ascorbic Acid (Vitamin C) 500 mg QHS PO Last administered on 08/27/16 20:53; Start 08/26/16 at 21:00 Non-Formulary Medication 500 mg HS PO supplement; Start 08/26/16 at 21:00; Status UNV Cyclobenzaprine HCl (Flexeril) 5 mg PRN Q6HRS PRN PO MUSCLE PAIN; Start at 20:45 Duloxetine HCl (Cymbalta) 60 mg QHS PO Last administered on 08/27/16 20:54; Start 08/26/16 at 21:00 Non-Formulary Medication 1,500 mg DAILYWLUN PO supplement; Start 08/27/16 at 12: 00; Status UNV Non-Formulary Medication 1 each DAILY PO blood pressure; Start 08/27/16 at 09:00 ; Status UNV Lactobacillus Acidophilus (Bacid, [place]-Bid) 2 tab DAILY PO Last administered on 08/28/16 08:30; Start 08/27/16 at 09:00 Cetirizine HCl (Zyrtec) 10 mg DAILY PO Last administered on 08/28/16 08:30; Start 08/27/16 at 09:00 Losartan Potassium (Cozaar) 100 mg DAILY PO Last administered on 08/28/16 08: 29; Start 08/27/16 at 09:00 Multi-Ingredient Ointment (Analgesic Sharon) 1 naun PRN BID PRN TP MUSCLE PAIN; Start 08/26/16 at 20:45 Multivitamins (Thera M Plus) 1 tab DAILY PO Last administered on 08/28/16 08: 32; Start 08/27/16 at 09:00 Oxycodone HCl (Roxicodone) 5 mg PRN Q4HRS PRN PO SEVERE PAIN Last administered on 08/26/16 23:00; Start 08/26/16 at 20:45 Pregabalin (Lyrica) 100 mg DAILY PO Last administered on 08/28/16 08:28; Start 08/27/16 at 09:00 Pregabalin (Lyrica) 150 mg QHS PO Last administered on 08/27/16 20:53; Start 08/26/16 at 21:00 Albuterol/ Ipratropium (Duoneb) 3 ml RTQID NEB Last administered on 08/28/16 15:16; Start 08/27/16 at 08:00 Albuterol/ Ipratropium (Duoneb) 3 ml 1X ONCE NEB Last administered on 21:23; Start 08/26/16 at 21:00; Stop 08/26/16 at 21:01; Status DC Enoxaparin Sodium 40 mg 40 mg Q24H SQ Last administered on 08/27/16 20:54; Start 08/26/16 at 21:00 Linezolid 300 ml @ 300 mls/hr Q12HR IV ; Start 08/26/16 at 21:15; Stop at 10:06; Status DC Linezolid (Zyvox Premix) 300 ml @ 300 mls/hr 1X ONCE IV Last administered on 08/27/16 11:52; Start 08/27/16 at 08:00; Stop 08/27/16 at 08:59; Status DC Albuterol Sulfate 2.5 mg 2.5 mg PRN Q2HR PRN NEB [id number] Last administered on 13:15; Start 08/27/16 at 08:15 Linezolid 300 ml @ 300 mls/hr Q12HR IV Last administered on 08/28/16 08:31; Start 08/27/16 at 21:00 Piperacillin Sod/ Tazobactam Sod/ Sodium Chloride (Zosyn/Iv Sodium Chloride 0.9 % 50ml) 50 ml @ 100 mls/hr Q6HRS IV Last administered on 08/28/16 12:19; Start 08/27/16 at 12:00 Active Scripts Active Levaquin (Levofloxacin) 500 Mg Tablet 500 Mg PO DAILY06 5 Days Mucinex (Guaifenesin) 600 Mg Tablet.er 600 Mg PO BID Reported Vitamin C (Ascorbic Acid) 500 Mg Capsule.er 500 Mg PO HS Senna S Tablet (Sennosides/Docusate Sodium) 1 Each Tablet 1 Each PO PRN STEFANO PRN Oxycodone Hcl 5 Mg Capsule 5 Mg PO PRN Q4HRS PRN Miralax (Polyethylene Glycol 3350) 17 Gm Powd.pack 1 Packet PO PRN DAILY PRN Hydrocodone-Apap 7.5-325 (Hydrocodone Bit/Acetaminophen) 1 Each Tablet 1 Tab PO PRN Q4HRS PRN Dulcolax (Bisacodyl) 10 Mg Supp.rect 10 Mg RC PRN DAILY PRN Cozaar (Losartan Potassium) 100 Mg Tablet 100 Mg PO DAILY Amlodipine Besylate 5 Mg Tablet 5 Mg PO DAILY Acetaminophen 325 Mg Tablet 650 Mg PO PRN Q6HRS PRN Probiotic (Lactobacillus Combo No.11) 1 Each Cap.sprink 1 Each PO DAILY Cyclobenzaprine Hcl 5 Mg Tablet 5 Mg PO PRN Q6HRS PRN Cymbalta (Duloxetine Hcl) 60 Mg Capsule.dr 60 Mg PO HS Claritin (Loratadine) 10 Mg Tablet 1 Tab PO DAILY Biofreeze (Menthol) 118 Ml Gel..ml. 118 Ml TP BID Aspirin 325 Mg Tablet 1 Tab PO DAILY Levothyroxine Sodium 75 Mcg Tablet 1 Tab PO DAILY Ocuvite Lutein & Zeaxanthin Cp (Vit C/E/Zn/Coppr/Lutein/Zeaxan) 1 Each Capsule 2 Each PO HS Allopurinol 100 Mg Tablet 1 Tab PO HS Calcium (Calcium Carbonate) 500 Mg Tablet 1,000 Mg PO DAILYWLUN Lidoderm (Lidocaine) 700 Mg Adh..patch 2 Patch TP DAILY Glucosamine Hcl 1,500 Mg Tablet 1,500 Mg PO DAILYWLUN FENTANYL 75mcg/hr (Fentanyl) 1 Each Patch.td72 1 Patch TD PRN Q48HR PRN Lyrica (Pregabalin) 150 Mg Capsule 1 Cap PO HS Lyrica (Pregabalin) 100 Mg Capsule 1 Cap PO DAILY Protonix (Pantoprazole Sodium) 40 Mg Tablet.dr 1 Tab PO DAILY Clopidogrel (Clopidogrel Bisulfate) 75 Mg Tablet 1 Tab PO DAILY Avalide 300-12.5 Mg Tablet (Irbesartan/Hydrochlorothiazide) 1 Each Tablet 1 Each PO DAILY Vitamin C (Ascorbic Acid) 500 Mg Capsule.er 500 Mg PO HS Multivitamins (Multivitamin) 1 Each Tablet 1 Tab PO DAILY Pv Fish Oil 1,000 Mg Softgel ([place]-3 Fatty Acids/Vitamin E) 1,000 Mg Capsule 1 Cap PO DAILY Hydrocodone-Apap 10-325 (Hydrocodone Bit/Acetaminophen) 1 Each Tablet 1 Tab PO PRN TID PRN Vitals/I & O Vital Sign - Last 24 Hours 08/27/16 08/27/16 08/27/16 08/27/16 16:00 16:04 19:20 19:33 Temp 98.2 98.2 Pulse 61 Resp 17 B/P 113/71 Pulse Ox 90 93 98 97 O2 Delivery Nasal Cannula Nasal Cannula Nasal Cannula Nasal Cannula O2 Flow Rate 2.0 2.0 2.0 2.0 08/27/16 08/27/16 08/28/16 08/28/16 20:00 23:42 03:30 07:33 Temp 97.7 97.9 98.8 97.7 97.9 98.8 Pulse 62 64 58 Resp 17 17 16 B/P 108/54 115/47 116/54 Pulse Ox 94 98 93 O2 Delivery Nasal Cannula Nasal Cannula Nasal Cannula Nasal Cannula O2 Flow Rate 2.0 2.0 2.0 08/28/16 08/28/16 08/28/16 08/28/16 07:35 08:00 08:29 08:30 Pulse 58 58 B/P 116/54 116/54 Pulse Ox 95 O2 Delivery Nasal Cannula Nasal Cannula O2 Flow Rate 2.0 2.0 08/28/16 08/28/16 08/28/16 08/28/16 11:00 11:27 13:15 15:17 Temp 97.6 97.6 Pulse 61 Resp 16 B/P 125/53 Pulse Ox 95 94 97 O2 Delivery Nasal Cannula Nasal Cannula Nasal Cannula Nasal Cannula O2 Flow Rate 2.0 2.0 2.0 2.0 Intake and Output 08/27/16 08/27/16 08/28/16 15:00 23:00 07:00 Intake Total 300 ml 500 ml 700 ml Output Total 1200 ml 200 ml Balance 300 ml -700 ml 500 ml EDELMIRA KNOWLES MD Aug 28, 2016 15:49
[2016-08-28 19:37] VITALS: BP 111/60
[2016-08-28] MEDS: ENOXAPARIN 40 MG/0.4 ML SYRINGE. SQ SCH (20:28)
[2016-08-28] MEDS: MULTIVITAMIN EYE FORMULA CAPSULE. PO SCH (20:29)
[2016-08-28] MEDS: PREGABALIN 75 MG CAPSULE PO SCH (20:29)
[2016-08-28] MEDS: ALLOPURINOL 100 MG TABLET. PO SCH (20:30)
[2016-08-28] MEDS: DULoxetine HCL 30 MG CAPSULE.DR PO SCH (20:30)
[2016-08-28] MEDS: ASCORBIC ACID 500 MG TABLET PO SCH (20:30)
[2016-08-28 23:31] VITALS: BP 151/67
[2016-08-29 03:00] VITALS: BP 126/55
[2016-08-29 05:42] LABS: BASO # 0.1 x10^3/uL (0.0-0.2); BASO % 1 % (0-3); EOS % 9 % (0-3); HEMATOCRIT 29.8 % (36.0-47.0); HEMOGLOBIN 10.1 g/dL (12.0-15.5); LYMPH # 1.5 x10^3/uL (1.0-4.8); LYMPH % 24 % (24-48); MEAN CORPUSCULAR HEMOGLOBIN 30 pg (25-35); MEAN CORPUSCULAR HGB CONC 34 g/dL (31-37); MEAN CORPUSCULAR VOLUME 89 fL (79-100); MONO % 10 % (0-9); NEUT % 55 % (31-73); PLATELET COUNT 195 x10^3/uL (140-400); RED BLOOD COUNT 3.35 x10^6/uL (3.50-5.40); RED CELL DISTRIBUTION WIDTH 16.4 % (11.5-14.5); WHITE BLOOD COUNT 6.1 x10^3/uL (4.0-11.0)
[2016-08-29 06:12] LABS: ALBUMIN 2.7 g/dL (3.4-5.0); ALBUMIN/GLOBULIN RATIO 0.8 (1.0-1.7); CALCIUM 8.6 mg/dL (8.5-10.1); CREATININE 1.2 mg/dL (0.6-1.0); GFR 42.6; POTASSIUM 4.2 mmol/L (3.5-5.1); TOTAL BILIRUBIN 0.4 mg/dL (0.2-1.0)
[2016-08-29] MEDS: LEVOTHYROXINE 75 MCG TABLET PO SCH (06:22)
[2016-08-29] MEDS: PIPERACILLIN/TAZOBACTAM 3.375 GM in IV NORMAL SALINE 50ML 50 ML IV SCH ×4 (06:23→23:32)
[2016-08-29 07:19] VITALS: BP 115/57
[2016-08-29] MEDS: IPRATRPIUM/ALBUTEROL 0.5/2.5MG 3 ML NEBU. NEB SCH ×4 (08:50→19:42)
[2016-08-29] MEDS: OMEGA-3 FATTY ACIDS/FISH OIL 1,000 MG CAPSULE. PO SCH (08:59)
[2016-08-29] MEDS: PANTOPRAZOLE 40 MG TABLET.DR. PO SCH (08:59)
[2016-08-29] MEDS: amLODIPine BESYLATE 5 MG TABLET PO SCH (08:59)
[2016-08-29] MEDS: MULTIVITAMIN with MINERAL TABLET. PO SCH (09:00)
[2016-08-29] MEDS: ASPIRIN 325 MG TABLET PO SCH (09:00)
[2016-08-29] MEDS: LOSARTAN POTASSIUM 50 MG TABLET. PO SCH (09:00)
[2016-08-29] MEDS: CETIRIZINE HCL 10 MG TABLET. PO SCH (09:00)
[2016-08-29] MEDS: CLOPIDOGREL BISULFATE 75 MG TABLET PO SCH (09:00)
[2016-08-29] MEDS: LACTOBACILLUS ACIDOPH & BULGAR 1 TABLET. PO SCH (09:00)
[2016-08-29] MEDS: PREGABALIN 50 MG CAPSULE PO SCH (09:01)
[2016-08-29] MEDS: LIDOCAINE (700MG/PATCH) PATCH. TP SCH (09:02)
[2016-08-29 10:09] VITALS: BP 124/51
[2016-08-29] MEDS ORDERED: ONDANSETRON PF 4 MG/2 ML VIAL. IV PRN (10:30)
[2016-08-29] MEDS ORDERED: ONDANSETRON PF 4 MG/2 ML VIAL. IV ONE (10:30)
--- NOTE | 2016-08-29 11:31 | PDOC ---
Infectious Disease Note Subjective Subjective Not feeling well, weak, nauseous Denies pain ROS ROS GEN: Denies fevers, chills, sweats CV: Denies chest pain RESP: Denies shortness of air, cough Vital Sign Vital Signs Vital Signs Date Time Temp Pulse Resp B/P Pulse Ox O2 Delivery O2 Flow Rate FiO2 08/29/16 10:09 97.9 69 18 124/51 93 Nasal Cannula 2.0 97.9 Physical Exam PHYSICAL EXAM GENERAL: Propped up in bed, vomiting LUNGS: Clear to auscultation. HEART: Normal S1 and S2. + murmur ABDOMEN: Nondistended. Bowel sounds are present, soft, nontender. EXTREMITIES: Bilateral lower extremity trace edema. No cyanosis. SKIN: Without rash. Warm to touch. NEUROLOGIC: Alert and oriented x 3. Moves all extremities. Labs Lab Laboratory Tests Test 08/29/16 05:00 White Blood Count 6.1x10^3/uL (4.0-11.0) Red Blood Count 3.35x10^6/uL (3.50-5.40) Hemoglobin 10.1g/dL (12.0-15.5) Hematocrit 29.8% (36.0-47.0) Mean Corpuscular Volume 89fL (79-100) Mean Corpuscular Hemoglobin 30pg (25-35) Mean Corpuscular Hemoglobin Concent 34g/dL (31-37) Red Cell Distribution Width 16.4% (11.5-14.5) Platelet Count 195x10^3/uL (140-400) Neutrophils (%) (Auto) 55% (31-73) Lymphocytes (%) (Auto) 24% (24-48) Monocytes (%) (Auto) 10% (0-9) Eosinophils (%) (Auto) 9% (0-3) Basophils (%) (Auto) 1% (0-3) Neutrophils # (Auto) 3.4x10^3uL (1.8-7.7) Lymphocytes # (Auto) 1.5x10^3/uL (1.0-4.8) Monocytes # (Auto) 0.6x10^3/uL (0.0-1.1) Eosinophils # (Auto) 0.6x10^3/uL (0.0-0.7) Basophils # (Auto) 0.1x10^3/uL (0.0-0.2) Sodium Level 138mmol/L (136-145) Potassium Level 4.2mmol/L (3.5-5.1) Chloride Level 102mmol/L (98-107) Carbon Dioxide Level 31mmol/L (21-32) Anion Gap 5 (6-14) Blood Urea Nitrogen 20mg/dL (7-20) Creatinine 1.2mg/dL (0.6-1.0) Estimated GFR (Cockcroft-Gault) 42.6 BUN/Creatinine Ratio 17 (6-20) Glucose Level 100mg/dL (70-99) Calcium Level 8.6mg/dL (8.5-10.1) Total Bilirubin 0.4mg/dL (0.2-1.0) Aspartate Amino Transf (AST/SGOT) 16U/L (15-37) Alanine Aminotransferase (ALT/SGPT) 10U/L (14-59) Alkaline Phosphatase 39U/L (46-116) Total Protein 6.0g/dL (6.4-8.2) Albumin 2.7g/dL (3.4-5.0) Albumin/Globulin Ratio 0.8 (1.0-1.7) Micro BLOOD CULTURE Final GRAM POSITIVE COCCI IN CLUSTERS, SUGGESTIVE OF STAPH, IN 4 OF 4 BOTTLES, TWO SETS DRAWN ONE BOTTLE OF EACH SET ALSO HAS LARGE GRAM POSITIVE RODS. Objective Assessment GPC in clusters (4 of 4 bottles) and GPR ( 1 of 4) bacteremia. POA HCAP CAD HTN Hypothyroidism Plan Plan of Care Continue Zyvox, Zosyn and Levaquin. f/u cultures Zofran Monitor labs PT/OT Attending Co-Sign The patient was seen and interviewed as well as examined at the bedside. The chart was reviewed. The case was discussed. Agree with the plan of care. TASHA FOSTER APRN Aug 29, 2016 11:31 CHUY GERBER MD Aug 29, 2016 12:48
[2016-08-29] MEDS: CALCIUM CARBONATE 500 MG TABLET PO SCH (12:19)
--- NOTE | 2016-08-29 12:23 | PDOC ---
PULMONARY PROGRESS NOTES Subjective pt weak no increase soa poor appetite Vitals Vital Signs Date Time Temp Pulse Resp B/P Pulse Ox O2 Delivery O2 Flow Rate FiO2 08/29/16 11:47 96 Nasal Cannula 2.0 08/29/16 10:09 97.9 69 18 124/51 97.9 General: Short term memory loss, Lungs: Clear, Crackles Cardiovascular: S1, S2 Abdomen: Soft, Non-tender Neuro Exam: Alert Extremities: No Edema Skin: Warm Labs Laboratory Tests Test 08/29/16 05:00 White Blood Count 6.1x10^3/uL (4.0-11.0) Red Blood Count 3.35x10^6/uL (3.50-5.40) Hemoglobin 10.1g/dL (12.0-15.5) Hematocrit 29.8% (36.0-47.0) Mean Corpuscular Volume 89fL (79-100) Mean Corpuscular Hemoglobin 30pg (25-35) Mean Corpuscular Hemoglobin Concent 34g/dL (31-37) Red Cell Distribution Width 16.4% (11.5-14.5) Platelet Count 195x10^3/uL (140-400) Neutrophils (%) (Auto) 55% (31-73) Lymphocytes (%) (Auto) 24% (24-48) Monocytes (%) (Auto) 10% (0-9) Eosinophils (%) (Auto) 9% (0-3) Basophils (%) (Auto) 1% (0-3) Neutrophils # (Auto) 3.4x10^3uL (1.8-7.7) Lymphocytes # (Auto) 1.5x10^3/uL (1.0-4.8) Monocytes # (Auto) 0.6x10^3/uL (0.0-1.1) Eosinophils # (Auto) 0.6x10^3/uL (0.0-0.7) Basophils # (Auto) 0.1x10^3/uL (0.0-0.2) Sodium Level 138mmol/L (136-145) Potassium Level 4.2mmol/L (3.5-5.1) Chloride Level 102mmol/L (98-107) Carbon Dioxide Level 31mmol/L (21-32) Anion Gap 5 (6-14) Blood Urea Nitrogen 20mg/dL (7-20) Creatinine 1.2mg/dL (0.6-1.0) Estimated GFR (Cockcroft-Gault) 42.6 BUN/Creatinine Ratio 17 (6-20) Glucose Level 100mg/dL (70-99) Calcium Level 8.6mg/dL (8.5-10.1) Total Bilirubin 0.4mg/dL (0.2-1.0) Aspartate Amino Transf (AST/SGOT) 16U/L (15-37) Alanine Aminotransferase (ALT/SGPT) 10U/L (14-59) Alkaline Phosphatase 39U/L (46-116) Total Protein 6.0g/dL (6.4-8.2) Albumin 2.7g/dL (3.4-5.0) Albumin/Globulin Ratio 0.8 (1.0-1.7) Laboratory Tests Test 08/29/16 05:00 White Blood Count 6.1x10^3/uL (4.0-11.0) Red Blood Count 3.35x10^6/uL (3.50-5.40) Hemoglobin 10.1g/dL (12.0-15.5) Hematocrit 29.8% (36.0-47.0) Mean Corpuscular Volume 89fL (79-100) Mean Corpuscular Hemoglobin 30pg (25-35) Mean Corpuscular Hemoglobin Concent 34g/dL (31-37) Red Cell Distribution Width 16.4% (11.5-14.5) Platelet Count 195x10^3/uL (140-400) Neutrophils (%) (Auto) 55% (31-73) Lymphocytes (%) (Auto) 24% (24-48) Monocytes (%) (Auto) 10% (0-9) Eosinophils (%) (Auto) 9% (0-3) Basophils (%) (Auto) 1% (0-3) Neutrophils # (Auto) 3.4x10^3uL (1.8-7.7) Lymphocytes # (Auto) 1.5x10^3/uL (1.0-4.8) Monocytes # (Auto) 0.6x10^3/uL (0.0-1.1) Eosinophils # (Auto) 0.6x10^3/uL (0.0-0.7) Basophils # (Auto) 0.1x10^3/uL (0.0-0.2) Sodium Level 138mmol/L (136-145) Potassium Level 4.2mmol/L (3.5-5.1) Chloride Level 102mmol/L (98-107) Carbon Dioxide Level 31mmol/L (21-32) Anion Gap 5 (6-14) Blood Urea Nitrogen 20mg/dL (7-20) Creatinine 1.2mg/dL (0.6-1.0) Estimated GFR (Cockcroft-Gault) 42.6 BUN/Creatinine Ratio 17 (6-20) Glucose Level 100mg/dL (70-99) Calcium Level 8.6mg/dL (8.5-10.1) Total Bilirubin 0.4mg/dL (0.2-1.0) Aspartate Amino Transf (AST/SGOT) 16U/L (15-37) Alanine Aminotransferase (ALT/SGPT) 10U/L (14-59) Alkaline Phosphatase 39U/L (46-116) Total Protein 6.0g/dL (6.4-8.2) Albumin 2.7g/dL (3.4-5.0) Albumin/Globulin Ratio 0.8 (1.0-1.7) Medications Active Scripts Medications Dose Route/Sig Days Date Category Vitamin C (Ascorbic Acid) 500 Mg Capsule.er 500 Mg PO HS 08/26/16 Reported Senna S Tablet (Sennosides/Docusate Sodium) 1 Each Tablet 1 Each PO PRN STEFANO PRN 08/26/16 Reported Oxycodone Hcl 5 Mg Capsule 5 Mg PO PRN Q4HRS PRN 08/26/16 Reported Miralax (Polyethylene Glycol 3350) 17 Gm Powd.pack 1 Packet PO PRN DAILY PRN 08/26/16 Reported Hydrocodone-Apap 7.5-325 (Hydrocodone Bit/Acetaminophen) 1 Each Tablet 1 Tab PO PRN Q4HRS PRN 08/26/16 Reported Dulcolax (Bisacodyl) 10 Mg Supp.rect 10 Mg RC PRN DAILY PRN 08/26/16 Reported Levaquin (Levofloxacin) 500 Mg Tablet 500 Mg PO DAILY06 5 08/03/16 Rx Mucinex (Guaifenesin) 600 Mg Tablet.er 600 Mg PO BID 08/03/16 Rx Cozaar (Losartan Potassium) 100 Mg Tablet 100 Mg PO DAILY 07/30/16 Reported Amlodipine Besylate 5 Mg Tablet 5 Mg PO DAILY 07/30/16 Reported Acetaminophen 325 Mg Tablet 650 Mg PO PRN Q6HRS PRN 07/30/16 Reported Probiotic (Lactobacillus Combo No.11) 1 Each Cap.sprink 1 Each PO DAILY 09/15/15 Reported Cyclobenzaprine Hcl 5 Mg Tablet 5 Mg PO PRN Q6HRS PRN 09/15/15 Reported Cymbalta (Duloxetine Hcl) 60 Mg Capsule.dr 60 Mg PO HS 09/15/15 Reported Claritin (Loratadine) 10 Mg Tablet 1 Tab PO DAILY 09/15/15 Reported Biofreeze (Menthol) 118 Ml Gel..ml. 118 Ml TP BID 09/15/15 Reported Aspirin 325 Mg Tablet 1 Tab PO DAILY 09/15/15 Reported Levothyroxine Sodium 75 Mcg Tablet 1 Tab PO DAILY 09/15/15 Reported Ocuvite Lutein & Zeaxanthin Cp (Vit C/E/Zn/Coppr/Lutein/Zeaxan) 1 Each Capsule 2 Each PO HS 12/25/14 Reported Allopurinol 100 Mg Tablet 1 Tab PO HS 12/25/14 Reported Calcium (Calcium Carbonate) 500 Mg Tablet 1,000 Mg PO DAILYWLUN 12/25/14 Reported Lidoderm (Lidocaine) 700 Mg Adh..patch 2 Patch TP DAILY 12/25/14 Reported Glucosamine Hcl 1,500 Mg Tablet 1,500 Mg PO DAILYWLUN 12/25/14 Reported FENTANYL 75mcg/hr (Fentanyl) 1 Each Patch.td72 1 Patch TD PRN Q48HR PRN 12/25/14 Reported Lyrica (Pregabalin) 150 Mg Capsule 1 Cap PO HS 12/25/14 Reported Lyrica (Pregabalin) 100 Mg Capsule 1 Cap PO DAILY 12/25/14 Reported Protonix (Pantoprazole Sodium) 40 Mg Tablet.dr 1 Tab PO DAILY 12/25/14 Reported Clopidogrel (Clopidogrel Bisulfate) 75 Mg Tablet 1 Tab PO DAILY 12/25/14 Reported Avalide 300-12.5 Mg Tablet (Irbesartan/Hydrochlorothiazide) 1 Each Tablet 1 Each PO DAILY 12/25/14 Reported Vitamin C (Ascorbic Acid) 500 Mg Capsule.er 500 Mg PO HS 12/25/14 Reported Multivitamins (Multivitamin) 1 Each Tablet 1 Tab PO DAILY 12/25/14 Reported Pv Fish Oil 1,000 Mg Softgel ([place]-3 Fatty Acids/Vitamin E) 1,000 Mg Capsule 1 Cap PO DAILY 12/25/14 Reported Hydrocodone-Apap 10-325 (Hydrocodone Bit/Acetaminophen) 1 Each Tablet 1 Tab PO PRN TID PRN 12/25/14 Reported Impression . 1. Acute respiratory failure secondary to pneumonia. 2. Abnormal CT revealing evidence of pneumonia, possibly lung mass. 3. CT with no evidence of pulmonary embolism. 4. History of deep venous thrombosis, status post IVC filter placement. 5. Chronic pain syndrome/fibromyalgia. 6. Coronary artery disease with previous myocardial infarction. Plan . 1. Considering the patient's recent admission hospital, back in late June, early July, recommend coverage for both gram-negative and gram-positive organism, concur with current linezolid and Levaquin. 2. Continue oxygen supplementation. 3. DVT prophylaxis. 4. Nebulized treatments. 5. Repeat CT in 6-8 weeks as an outpatient, case D/w Dr Renee on Tuesday 6. PT/OT. ARASELI ROWAN MD Aug 29, 2016 12:23
--- NOTE | 2016-08-29 12:43 | PDOC ---
IM PROGRESS NOTES- Subjective Subjective No dyspnea,cough.Not feeling well. Objective Vitals Vital Signs Date Time Temp Pulse Resp B/P Pulse Ox O2 Delivery O2 Flow Rate FiO2 08/29/16 11:47 96 Nasal Cannula 2.0 08/29/16 10:09 97.9 69 18 124/51 97.9 Input & Output Intake and Output 08/29/16 07:00 Intake Total 700 ml Output Total 2150 ml Balance -1450 ml Intake Oral 300 ml Blood Product IV Normal Saline Flush 400 ml Output Urine Total 2150 ml Physical Exam Physical Exam General appearance - alert,ill appearing, and in mild distress and oriented to person, place, and time Mental Status - alert, oriented to person, place, and time, affect appropriate to mood Head - normal Chest - decreased air entry Heart - S1 and S2 normal Abdomen - soft, nontender, nondistended, no masses or organomegaly Neurological - alert and oriented Musculoskeletal - no muscular tenderness noted Extremities - no pedal edema Skin - warm and dry Labs Laboratory Tests Test 08/29/16 05:00 White Blood Count 6.1x10^3/uL (4.0-11.0) Red Blood Count 3.35x10^6/uL (3.50-5.40) Hemoglobin 10.1g/dL (12.0-15.5) Hematocrit 29.8% (36.0-47.0) Mean Corpuscular Volume 89fL (79-100) Mean Corpuscular Hemoglobin 30pg (25-35) Mean Corpuscular Hemoglobin Concent 34g/dL (31-37) Red Cell Distribution Width 16.4% (11.5-14.5) Platelet Count 195x10^3/uL (140-400) Neutrophils (%) (Auto) 55% (31-73) Lymphocytes (%) (Auto) 24% (24-48) Monocytes (%) (Auto) 10% (0-9) Eosinophils (%) (Auto) 9% (0-3) Basophils (%) (Auto) 1% (0-3) Neutrophils # (Auto) 3.4x10^3uL (1.8-7.7) Lymphocytes # (Auto) 1.5x10^3/uL (1.0-4.8) Monocytes # (Auto) 0.6x10^3/uL (0.0-1.1) Eosinophils # (Auto) 0.6x10^3/uL (0.0-0.7) Basophils # (Auto) 0.1x10^3/uL (0.0-0.2) Sodium Level 138mmol/L (136-145) Potassium Level 4.2mmol/L (3.5-5.1) Chloride Level 102mmol/L (98-107) Carbon Dioxide Level 31mmol/L (21-32) Anion Gap 5 (6-14) Blood Urea Nitrogen 20mg/dL (7-20) Creatinine 1.2mg/dL (0.6-1.0) Estimated GFR (Cockcroft-Gault) 42.6 BUN/Creatinine Ratio 17 (6-20) Glucose Level 100mg/dL (70-99) Calcium Level 8.6mg/dL (8.5-10.1) Total Bilirubin 0.4mg/dL (0.2-1.0) Aspartate Amino Transf (AST/SGOT) 16U/L (15-37) Alanine Aminotransferase (ALT/SGPT) 10U/L (14-59) Alkaline Phosphatase 39U/L (46-116) Total Protein 6.0g/dL (6.4-8.2) Albumin 2.7g/dL (3.4-5.0) Albumin/Globulin Ratio 0.8 (1.0-1.7) Laboratory Tests Test 08/29/16 05:00 White Blood Count 6.1x10^3/uL (4.0-11.0) Red Blood Count 3.35x10^6/uL (3.50-5.40) Hemoglobin 10.1g/dL (12.0-15.5) Hematocrit 29.8% (36.0-47.0) Mean Corpuscular Volume 89fL (79-100) Mean Corpuscular Hemoglobin 30pg (25-35) Mean Corpuscular Hemoglobin Concent 34g/dL (31-37) Red Cell Distribution Width 16.4% (11.5-14.5) Platelet Count 195x10^3/uL (140-400) Neutrophils (%) (Auto) 55% (31-73) Lymphocytes (%) (Auto) 24% (24-48) Monocytes (%) (Auto) 10% (0-9) Eosinophils (%) (Auto) 9% (0-3) Basophils (%) (Auto) 1% (0-3) Neutrophils # (Auto) 3.4x10^3uL (1.8-7.7) Lymphocytes # (Auto) 1.5x10^3/uL (1.0-4.8) Monocytes # (Auto) 0.6x10^3/uL (0.0-1.1) Eosinophils # (Auto) 0.6x10^3/uL (0.0-0.7) Basophils # (Auto) 0.1x10^3/uL (0.0-0.2) Sodium Level 138mmol/L (136-145) Potassium Level 4.2mmol/L (3.5-5.1) Chloride Level 102mmol/L (98-107) Carbon Dioxide Level 31mmol/L (21-32) Anion Gap 5 (6-14) Blood Urea Nitrogen 20mg/dL (7-20) Creatinine 1.2mg/dL (0.6-1.0) Estimated GFR (Cockcroft-Gault) 42.6 BUN/Creatinine Ratio 17 (6-20) Glucose Level 100mg/dL (70-99) Calcium Level 8.6mg/dL (8.5-10.1) Total Bilirubin 0.4mg/dL (0.2-1.0) Aspartate Amino Transf (AST/SGOT) 16U/L (15-37) Alanine Aminotransferase (ALT/SGPT) 10U/L (14-59) Alkaline Phosphatase 39U/L (46-116) Total Protein 6.0g/dL (6.4-8.2) Albumin 2.7g/dL (3.4-5.0) Albumin/Globulin Ratio 0.8 (1.0-1.7) Meds Current Medications Ondansetron HCl (Zofran) 4 mg 1X ONCE IV Last administered on 08/29/16t 10:29 ; Start 08/29/16 at 10:30; Stop 08/29/16 at 10:31; Status DC Ondansetron HCl (Zofran) 4 mg PRN Q8HRS PRN IV NAUSEA/VOMITING; Start 08/29/16 at 10:30 Assessment Assessment 1. Healthcare-associated pneumonia. 2. Right lower lobe infiltrate. 3. Coronary artery disease, history of stents. 4. Hypothyroidism. 5. History of back and hip surgery. PLAN: sepsis- Bl c/s Gram positive cocci 08/03. cultures, treat for healthcare-associated pneumonia with Levaquin and Zyvox, Zosyn. oxygen breathing treatments and pulmonary consult, ID is consulted Plan Plan For more details regarding further plans, please refer to the orders. CECY RUGGIERO MD Aug 29, 2016 12:43
[2016-08-29 15:14] VITALS: BP 115/49
--- NOTE | 2016-08-29 15:34 | PDOC ---
PROGRESS NOTES Subjective Subjective No cardiac complaints. Objective Objective Vital Signs Date Time Temp Pulse Resp B/P Pulse Ox O2 Delivery O2 Flow Rate FiO2 08/29/16 15:14 97.8 67 20 115/49 94 Nasal Cannula 2.0 97.8 Intake and Output 08/29/16 07:00 Intake Total 700 ml Output Total 2150 ml Balance -1450 ml Intake Oral 300 ml Blood Product IV Normal Saline Flush 400 ml Output Urine Total 2150 ml Physical Exam Physical Exam No significant changes in cardiac exam Assessment Assessment Patient compensated cardiac-rodriguez. I agree with present plan and the IV antibiotics. Problems Medical Problems: (1) Hypoxia Status: Acute (2) Pneumonia Status: Acute Comment Review of Relevant I have reviewed the following items poornima (where applicable) has been applied. Labs Laboratory Tests Test 08/29/16 05:00 White Blood Count 6.1x10^3/uL (4.0-11.0) Red Blood Count 3.35x10^6/uL (3.50-5.40) Hemoglobin 10.1g/dL (12.0-15.5) Hematocrit 29.8% (36.0-47.0) Mean Corpuscular Volume 89fL (79-100) Mean Corpuscular Hemoglobin 30pg (25-35) Mean Corpuscular Hemoglobin Concent 34g/dL (31-37) Red Cell Distribution Width 16.4% (11.5-14.5) Platelet Count 195x10^3/uL (140-400) Neutrophils (%) (Auto) 55% (31-73) Lymphocytes (%) (Auto) 24% (24-48) Monocytes (%) (Auto) 10% (0-9) Eosinophils (%) (Auto) 9% (0-3) Basophils (%) (Auto) 1% (0-3) Neutrophils # (Auto) 3.4x10^3uL (1.8-7.7) Lymphocytes # (Auto) 1.5x10^3/uL (1.0-4.8) Monocytes # (Auto) 0.6x10^3/uL (0.0-1.1) Eosinophils # (Auto) 0.6x10^3/uL (0.0-0.7) Basophils # (Auto) 0.1x10^3/uL (0.0-0.2) Sodium Level 138mmol/L (136-145) Potassium Level 4.2mmol/L (3.5-5.1) Chloride Level 102mmol/L (98-107) Carbon Dioxide Level 31mmol/L (21-32) Anion Gap 5 (6-14) Blood Urea Nitrogen 20mg/dL (7-20) Creatinine 1.2mg/dL (0.6-1.0) Estimated GFR (Cockcroft-Gault) 42.6 BUN/Creatinine Ratio 17 (6-20) Glucose Level 100mg/dL (70-99) Calcium Level 8.6mg/dL (8.5-10.1) Total Bilirubin 0.4mg/dL (0.2-1.0) Aspartate Amino Transf (AST/SGOT) 16U/L (15-37) Alanine Aminotransferase (ALT/SGPT) 10U/L (14-59) Alkaline Phosphatase 39U/L (46-116) Total Protein 6.0g/dL (6.4-8.2) Albumin 2.7g/dL (3.4-5.0) Albumin/Globulin Ratio 0.8 (1.0-1.7) Laboratory Tests Test 08/29/16 05:00 White Blood Count 6.1x10^3/uL (4.0-11.0) Red Blood Count 3.35x10^6/uL (3.50-5.40) Hemoglobin 10.1g/dL (12.0-15.5) Hematocrit 29.8% (36.0-47.0) Mean Corpuscular Volume 89fL (79-100) Mean Corpuscular Hemoglobin 30pg (25-35) Mean Corpuscular Hemoglobin Concent 34g/dL (31-37) Red Cell Distribution Width 16.4% (11.5-14.5) Platelet Count 195x10^3/uL (140-400) Neutrophils (%) (Auto) 55% (31-73) Lymphocytes (%) (Auto) 24% (24-48) Monocytes (%) (Auto) 10% (0-9) Eosinophils (%) (Auto) 9% (0-3) Basophils (%) (Auto) 1% (0-3) Neutrophils # (Auto) 3.4x10^3uL (1.8-7.7) Lymphocytes # (Auto) 1.5x10^3/uL (1.0-4.8) Monocytes # (Auto) 0.6x10^3/uL (0.0-1.1) Eosinophils # (Auto) 0.6x10^3/uL (0.0-0.7) Basophils # (Auto) 0.1x10^3/uL (0.0-0.2) Sodium Level 138mmol/L (136-145) Potassium Level 4.2mmol/L (3.5-5.1) Chloride Level 102mmol/L (98-107) Carbon Dioxide Level 31mmol/L (21-32) Anion Gap 5 (6-14) Blood Urea Nitrogen 20mg/dL (7-20) Creatinine 1.2mg/dL (0.6-1.0) Estimated GFR (Cockcroft-Gault) 42.6 BUN/Creatinine Ratio 17 (6-20) Glucose Level 100mg/dL (70-99) Calcium Level 8.6mg/dL (8.5-10.1) Total Bilirubin 0.4mg/dL (0.2-1.0) Aspartate Amino Transf (AST/SGOT) 16U/L (15-37) Alanine Aminotransferase (ALT/SGPT) 10U/L (14-59) Alkaline Phosphatase 39U/L (46-116) Total Protein 6.0g/dL (6.4-8.2) Albumin 2.7g/dL (3.4-5.0) Albumin/Globulin Ratio 0.8 (1.0-1.7) Microbiology 08/27/16 Blood Culture - Final, Complete 08/26/16 Urine Culture - Final, Complete 08/26/16 Urine Culture Result 1 (WENDY) - Final, Complete Medications Current Medications Sodium Chloride (Iv Sodium Chloride 0.9% 1000ml Bag) 1,000 ml @ 1,000 mls/hr 1X ONCE IV Last administered on 08/26/16 17:26; Start 08/26/16 at 17:00; Stop 08/26/16 at 17:59; Status DC Iohexol (Omnipaque 300 Mg/ml) 60 ml 1X ONCE IV Last administered on 08/26/16 18:05; Start 08/26/16 at 18:00; Stop 08/26/16 at 18:01; Status DC Info 1 each 1 each PRN DAILY PRN MC SEE COMMENTS; Start 08/26/16 at 18:00; Stop 08/28/16 at 17:59; Status DC Levofloxacin/ Dextrose 100 ml @ 100 mls/hr Q24H IV ; Start 08/26/16 at 19:45; Status UNV Levofloxacin/ Dextrose (LEVAQUIN 750mg PREMIX) 150 ml @ 100 mls/hr Q48H IV Last administered on 08/28/16 19:19; Start 08/26/16 at 20:00 Acetaminophen (Tylenol) 650 mg PRN Q6HRS PRN PO MILD PAIN; Start 08/26/16 at 20 :30 Allopurinol (Zyloprim) 100 mg HS PO Last administered on 08/28/16 20:30; Start 08/26/16 at 21:00 Amlodipine Besylate (Norvasc) 5 mg DAILY PO Last administered on 08/29/16 08: 59; Start 08/27/16 at 09:00 Aspirin (Gene Aspirin) 325 mg DAILY PO Last administered on 08/29/16 09:00; Start 08/27/16 at 09:00 Bisacodyl (Dulcolax Supp) 10 mg PRN DAILY PRN RC CONSTIPATION; Start 08/26/16 at 20:30 Calcium Carbonate/ Glycine (Oscal) 1,000 mg DAILYWLUN PO Last administered on 12:19; Start 08/27/16 at 12:00 Clopidogrel Bisulfate (Plavix) 75 mg DAILY PO Last administered on 08/29/16 09 :00; Start 08/27/16 at 09:00 Fentanyl (Duragesic 75mcg/ Hr Patch) 1 patch Q3DAYS TD Last administered on 11:54; Start 08/27/16 at 09:00 Guaifenesin (Mucinex) 600 mg BID PO Last administered on 08/29/16 09:00; Start 08/26/16 at 21:00 Acetaminophen/ Hydrocodone Bitart (Lortab 10/325) 1 tab PRN TID PRN PO SEVERE PAIN; Start 08/26/16 at 20:30 Acetaminophen/ Hydrocodone Bitart (Lortab 7.5/325) 1 tab PRN Q4HRS PRN PO MODERATE PAIN; Start 08/26/16 at 20:30 Levothyroxine Sodium (Synthroid) 75 mcg DAILY07 PO Last administered on 06:22; Start 08/27/16 at 07:00 Lidocaine (Lidoderm) 2 patch DAILY TP Last administered on 08/29/16 09:02; Start 08/27/16 at 09:00 Fish Oil (Fish Oil) 1,000 mg DAILY PO Last administered on 08/29/16 08:59; Start 08/27/16 at 09:00 Pantoprazole Sodium (Protonix) 40 mg DAILYAC PO Last administered on 08/29/16 08:59; Start 08/27/16 at 07:30 Polyethylene Glycol (miraLAX PACKET) 17 gm PRN DAILY PRN PO CONSTIPATION Last administered on 08/28/16 08:44; Start 08/26/16 at 20:30 Senna/Docusate Sodium (Senna Plus) 1 tab PRN DAILY PRN PO CONSTIPATION; Start 08/26/16 at 20:30 Multivitamins/ Minerals (Ocuvite Lutein) 2 cap QHS PO Last administered on 08/28 20:29; Start 08/26/16 at 21:00 Ascorbic Acid (Vitamin C) 500 mg QHS PO Last administered on 08/28/16 20:30; Start 08/26/16 at 21:00 Non-Formulary Medication 500 mg HS PO supplement; Start 08/26/16 at 21:00; Status UNV Cyclobenzaprine HCl (Flexeril) 5 mg PRN Q6HRS PRN PO MUSCLE PAIN; Start at 20:45 Duloxetine HCl (Cymbalta) 60 mg QHS PO Last administered on 08/28/16 20:30; Start 08/26/16 at 21:00 Non-Formulary Medication 1,500 mg DAILYWLUN PO supplement; Start 08/27/16 at 12: 00; Status UNV Non-Formulary Medication 1 each DAILY PO blood pressure; Start 08/27/16 at 09:00 ; Status UNV Lactobacillus Acidophilus (Bacid, [place]-Bid) 2 tab DAILY PO Last administered on 08/29/16 09:00; Start 08/27/16 at 09:00 Cetirizine HCl (Zyrtec) 10 mg DAILY PO Last administered on 08/29/16 09:00; Start 08/27/16 at 09:00 Losartan Potassium (Cozaar) 100 mg DAILY PO Last administered on 08/29/16 09: 00; Start 08/27/16 at 09:00 Multi-Ingredient Ointment (Analgesic [place]) 1 naun PRN BID PRN TP MUSCLE PAIN; Start 08/26/16 at 20:45 Multivitamins (Thera M Plus) 1 tab DAILY PO Last administered on 08/29/16 09: 00; Start 08/27/16 at 09:00 Oxycodone HCl (Roxicodone) 5 mg PRN Q4HRS PRN PO SEVERE PAIN Last administered on 08/26/16 23:00; Start 08/26/16 at 20:45 Pregabalin (Lyrica) 100 mg DAILY PO Last administered on 08/29/16 09:01; Start 08/27/16 at 09:00 Pregabalin (Lyrica) 150 mg QHS PO Last administered on 08/28/16 20:29; Start 08/26/16 at 21:00 Albuterol/ Ipratropium (Duoneb) 3 ml RTQID NEB Last administered on 08/29/16 11:45; Start 08/27/16 at 08:00 Albuterol/ Ipratropium (Duoneb) 3 ml 1X ONCE NEB Last administered on 21:23; Start 08/26/16 at 21:00; Stop 08/26/16 at 21:01; Status DC Enoxaparin Sodium 40 mg 40 mg Q24H SQ Last administered on 08/28/16 20:28; Start 08/26/16 at 21:00 Linezolid 300 ml @ 300 mls/hr Q12HR IV ; Start 08/26/16 at 21:15; Stop at 10:06; Status DC Linezolid (Zyvox Premix) 300 ml @ 300 mls/hr 1X ONCE IV Last administered on 08/27/16 11:52; Start 08/27/16 at 08:00; Stop 08/27/16 at 08:59; Status DC Albuterol Sulfate 2.5 mg 2.5 mg PRN Q2HR PRN NEB DYSPNEA Last administered on 13:15; Start 08/27/16 at 08:15 Linezolid 300 ml @ 300 mls/hr Q12HR IV Last administered on 08/29/16 09:01; Start 08/27/16 at 21:00 Piperacillin Sod/ Tazobactam Sod/ Sodium Chloride (Zosyn/Iv Sodium Chloride 0.9 % 50ml) 50 ml @ 100 mls/hr Q6HRS IV Last administered on 08/29/16 12:20; Start 08/27/16 at 12:00 Ondansetron HCl (Zofran) 4 mg 1X ONCE IV Last administered on 08/29/16 10:29 ; Start 08/29/16 at 10:30; Stop 08/29/16 at 10:31; Status DC Ondansetron HCl (Zofran) 4 mg PRN Q8HRS PRN IV NAUSEA/VOMITING; Start 08/29/16 at 10:30 Active Scripts Active Levaquin (Levofloxacin) 500 Mg Tablet 500 Mg PO DAILY06 5 Days Mucinex (Guaifenesin) 600 Mg Tablet.er 600 Mg PO BID Reported Vitamin C (Ascorbic Acid) 500 Mg Capsule.er 500 Mg PO HS Senna S Tablet (Sennosides/Docusate Sodium) 1 Each Tablet 1 Each PO PRN STEFANO PRN Oxycodone Hcl 5 Mg Capsule 5 Mg PO PRN Q4HRS PRN Miralax (Polyethylene Glycol 3350) 17 Gm Powd.pack 1 Packet PO PRN DAILY PRN Hydrocodone-Apap 7.5-325 (Hydrocodone Bit/Acetaminophen) 1 Each Tablet 1 Tab PO PRN Q4HRS PRN Dulcolax (Bisacodyl) 10 Mg Supp.rect 10 Mg RC PRN DAILY PRN Cozaar (Losartan Potassium) 100 Mg Tablet 100 Mg PO DAILY Amlodipine Besylate 5 Mg Tablet 5 Mg PO DAILY Acetaminophen 325 Mg Tablet 650 Mg PO PRN Q6HRS PRN Probiotic (Lactobacillus Combo No.11) 1 Each Cap.sprink 1 Each PO DAILY Cyclobenzaprine Hcl 5 Mg Tablet 5 Mg PO PRN Q6HRS PRN Cymbalta (Duloxetine Hcl) 60 Mg Capsule.dr 60 Mg PO HS Claritin (Loratadine) 10 Mg Tablet 1 Tab PO DAILY Biofreeze (Menthol) 118 Ml Gel..ml. 118 Ml TP BID Aspirin 325 Mg Tablet 1 Tab PO DAILY Levothyroxine Sodium 75 Mcg Tablet 1 Tab PO DAILY Ocuvite Lutein & Zeaxanthin Cp (Vit C/E/Zn/Coppr/Lutein/Zeaxan) 1 Each Capsule 2 Each PO HS Allopurinol 100 Mg Tablet 1 Tab PO HS Calcium (Calcium Carbonate) 500 Mg Tablet 1,000 Mg PO DAILYWLUN Lidoderm (Lidocaine) 700 Mg Adh..patch 2 Patch TP DAILY Glucosamine Hcl 1,500 Mg Tablet 1,500 Mg PO DAILYWLUN FENTANYL 75mcg/hr (Fentanyl) 1 Each Patch.td72 1 Patch TD PRN Q48HR PRN Lyrica (Pregabalin) 150 Mg Capsule 1 Cap PO HS Lyrica (Pregabalin) 100 Mg Capsule 1 Cap PO DAILY Protonix (Pantoprazole Sodium) 40 Mg Tablet.dr 1 Tab PO DAILY Clopidogrel (Clopidogrel Bisulfate) 75 Mg Tablet 1 Tab PO DAILY Avalide 300-12.5 Mg Tablet (Irbesartan/Hydrochlorothiazide) 1 Each Tablet 1 Each PO DAILY Vitamin C (Ascorbic Acid) 500 Mg Capsule.er 500 Mg PO HS Multivitamins (Multivitamin) 1 Each Tablet 1 Tab PO DAILY Pv Fish Oil 1,000 Mg Softgel ([place]-3 Fatty Acids/Vitamin E) 1,000 Mg Capsule 1 Cap PO DAILY Hydrocodone-Apap 10-325 (Hydrocodone Bit/Acetaminophen) 1 Each Tablet 1 Tab PO PRN TID PRN Vitals/I & O Vital Sign - Last 24 Hours 08/28/16 08/28/16 08/28/16 08/28/16 19:01 19:37 20:00 23:31 Temp 97.6 98.3 97.6 98.3 Pulse 65 60 Resp 18 18 B/P 111/60 151/67 Pulse Ox 96 93 94 O2 Delivery Nasal Cannula Nasal Cannula Nasal Cannula Nasal Cannula O2 Flow Rate 2.0 2.0 2.0 2.0 08/29/16 08/29/16 08/29/16 08/29/16 03:00 07:19 08:00 08:50 Temp 98.1 97.7 98.1 97.7 Pulse 64 68 Resp 18 20 B/P 126/55 115/57 Pulse Ox 93 94 96 O2 Delivery Nasal Cannula Nasal Cannula Nasal Cannula Nasal Cannula O2 Flow Rate 2.0 2.0 2.0 2.0 08/29/16 08/29/16 08/29/16 08/29/16 08:59 09:00 10:09 11:47 Temp 97.9 97.9 Pulse 68 68 69 Resp 18 B/P 115/57 115/57 124/51 Pulse Ox 93 96 O2 Delivery Nasal Cannula Nasal Cannula O2 Flow Rate 2.0 2.0 08/29/16 15:14 Temp 97.8 97.8 Pulse 67 Resp 20 B/P 115/49 Pulse Ox 94 O2 Delivery Nasal Cannula O2 Flow Rate 2.0 Intake and Output 08/28/16 08/28/16 08/29/16 15:00 23:00 07:00 Intake Total 600 ml 100 ml Output Total 500 ml 1650 ml Balance 100 ml -1550 ml EDELMIRA KNOWLES MD Aug 29, 2016 15:34
[2016-08-29 19:50] VITALS: BP 113/46
[2016-08-29] MEDS: MULTIVITAMIN EYE FORMULA CAPSULE. PO SCH (21:12)
[2016-08-29] MEDS: ASCORBIC ACID 500 MG TABLET PO SCH (21:13)
[2016-08-29] MEDS: ALLOPURINOL 100 MG TABLET. PO SCH (21:13)
[2016-08-29] MEDS: DULoxetine HCL 30 MG CAPSULE.DR PO SCH (21:13)
[2016-08-29] MEDS: PREGABALIN 75 MG CAPSULE PO SCH (21:14)
[2016-08-29] MEDS: ENOXAPARIN 40 MG/0.4 ML SYRINGE. SQ SCH (21:14)
[2016-08-29 23:15] VITALS: BP 110/45
[2016-08-30 03:20] VITALS: BP 116/50
[2016-08-30] MEDS: PIPERACILLIN/TAZOBACTAM 3.375 GM in IV NORMAL SALINE 50ML 50 ML IV SCH ×4 (06:11→23:41)
[2016-08-30] MEDS: PANTOPRAZOLE 40 MG TABLET.DR. PO SCH (06:14)
[2016-08-30] MEDS: LEVOTHYROXINE 75 MCG TABLET PO SCH (06:14)
[2016-08-30] MEDS: IPRATRPIUM/ALBUTEROL 0.5/2.5MG 3 ML NEBU. NEB SCH ×4 (07:16→20:07)
[2016-08-30 07:23] LABS: BASO % 1 % (0-3); EOS % 9 % (0-3); HEMOGLOBIN 10.2 g/dL (12.0-15.5); LYMPH % 15 % (24-48); MEAN CORPUSCULAR HEMOGLOBIN 30 pg (25-35); MEAN CORPUSCULAR HGB CONC 33 g/dL (31-37); MEAN CORPUSCULAR VOLUME 90 fL (79-100); MONO % 10 % (0-9); NEUT % 66 % (31-73); PLATELET COUNT 189 x10^3/uL (140-400); RED BLOOD COUNT 3.46 x10^6/uL (3.50-5.40); RED CELL DISTRIBUTION WIDTH 16.7 % (11.5-14.5); WHITE BLOOD COUNT 6.7 x10^3/uL (4.0-11.0)
[2016-08-30 07:49] LABS: ALBUMIN 2.7 g/dL (3.4-5.0); ALBUMIN/GLOBULIN RATIO 0.8 (1.0-1.7); CALCIUM 8.7 mg/dL (8.5-10.1); CREATININE 1.2 mg/dL (0.6-1.0); GFR 42.6; POTASSIUM 4.1 mmol/L (3.5-5.1); TOTAL BILIRUBIN 0.5 mg/dL (0.2-1.0); TOTAL PROTEIN 6.3 g/dL (6.4-8.2)
[2016-08-30 07:50] VITALS: BP 115/42
[2016-08-30] MEDS: LIDOCAINE (700MG/PATCH) PATCH. TP SCH (08:56)
[2016-08-30] MEDS: CETIRIZINE HCL 10 MG TABLET. PO SCH (08:58)
[2016-08-30] MEDS: fentaNYL 75MCG/HR PATCH 1 PATCH PATCH.TD72 TD SCH (08:58)
[2016-08-30] MEDS: OMEGA-3 FATTY ACIDS/FISH OIL 1,000 MG CAPSULE. PO SCH (08:58)
[2016-08-30] MEDS: amLODIPine BESYLATE 5 MG TABLET PO SCH (08:58)
[2016-08-30] MEDS: CLOPIDOGREL BISULFATE 75 MG TABLET PO SCH (08:58)
[2016-08-30] MEDS: ASPIRIN 325 MG TABLET PO SCH (08:59)
[2016-08-30] MEDS: MULTIVITAMIN with MINERAL TABLET. PO SCH (08:59)
[2016-08-30] MEDS: PREGABALIN 50 MG CAPSULE PO SCH (08:59)
[2016-08-30] MEDS: LACTOBACILLUS ACIDOPH & BULGAR 1 TABLET. PO SCH (08:59)
[2016-08-30] MEDS: LOSARTAN POTASSIUM 50 MG TABLET. PO SCH (09:00)
--- NOTE | 2016-08-30 09:02 | PDOC ---
Infectious Disease Note Subjective Subjective feeling better ROS ROS GEN: Denies fevers, chills, sweats HEENT: Denies blurred vision, sore throat CV: Denies chest pain RESP: Denies shortness of air, cough GI: Denies n/v/d NEURO: Denies confusion, dizziness MSK: Denies weakness, joint pain/swelling Vital Sign Vital Signs Vital Signs Date Time Temp Pulse Resp B/P Pulse Ox O2 Delivery O2 Flow Rate FiO2 08/30/16 08:00 Nasal Cannula 2.0 08/30/16 07:50 98.1 64 17 115/42 96 98.1 Physical Exam PHYSICAL EXAM GENERAL: NAD, Alert HEENT: PERRL, OC/OP NECK: Supple, no JVD, no LN LUNGS: Clear HEART: S1S2, no gallop, no murmur ABD: Soft, NT, no organomegaly, no rebound EXT: No edema, no cyanosis WELLNESS NURSE RN: Alert, oriented x 3, no focal neurologic deficit SKIN: No rash IV: ok Labs Lab Laboratory Tests Test 08/30/16 06:15 White Blood Count 6.7x10^3/uL (4.0-11.0) Red Blood Count 3.46x10^6/uL (3.50-5.40) Hemoglobin 10.2g/dL (12.0-15.5) Hematocrit 31.0% (36.0-47.0) Mean Corpuscular Volume 90fL (79-100) Mean Corpuscular Hemoglobin 30pg (25-35) Mean Corpuscular Hemoglobin Concent 33g/dL (31-37) Red Cell Distribution Width 16.7% (11.5-14.5) Platelet Count 189x10^3/uL (140-400) Neutrophils (%) (Auto) 66% (31-73) Lymphocytes (%) (Auto) 15% (24-48) Monocytes (%) (Auto) 10% (0-9) Eosinophils (%) (Auto) 9% (0-3) Basophils (%) (Auto) 1% (0-3) Neutrophils # (Auto) 4.4x10^3uL (1.8-7.7) Lymphocytes # (Auto) 1.0x10^3/uL (1.0-4.8) Monocytes # (Auto) 0.6x10^3/uL (0.0-1.1) Eosinophils # (Auto) 0.6x10^3/uL (0.0-0.7) Basophils # (Auto) 0.0x10^3/uL (0.0-0.2) Sodium Level 138mmol/L (136-145) Potassium Level 4.1mmol/L (3.5-5.1) Chloride Level 103mmol/L (98-107) Carbon Dioxide Level 32mmol/L (21-32) Anion Gap 3 (6-14) Blood Urea Nitrogen 16mg/dL (7-20) Creatinine 1.2mg/dL (0.6-1.0) Estimated GFR (Cockcroft-Gault) 42.6 BUN/Creatinine Ratio 13 (6-20) Glucose Level 84mg/dL (70-99) Calcium Level 8.7mg/dL (8.5-10.1) Total Bilirubin 0.5mg/dL (0.2-1.0) Aspartate Amino Transf (AST/SGOT) 17U/L (15-37) Alanine Aminotransferase (ALT/SGPT) 13U/L (14-59) Alkaline Phosphatase 35U/L (46-116) Total Protein 6.3g/dL (6.4-8.2) Albumin 2.7g/dL (3.4-5.0) Albumin/Globulin Ratio 0.8 (1.0-1.7) Objective Assessment GPC in clusters 2/4 and 2/4 G + khadra,, likely contaminant HCAP CAD HTN Hypothyroidism Plan Plan of Care start scaling down antibiotics f/u cultures Zofran Monitor labs PT/OT CHUY GERBER MD August 30, 2016 09:01
--- NOTE | 2016-08-30 10:07 | PDOC ---
PROGRESS NOTES Subjective Subjective nauseated today Objective Objective Vital Signs Date Time Temp Pulse Resp B/P Pulse Ox O2 Delivery O2 Flow Rate FiO2 08/30/16 09:00 64 115/42 08/30/16 08:58 16 Nasal Cannula 1.0 08/30/16 07:50 98.1 96 98.1 Intake and Output 08/30/16 07:00 Intake Total 600 ml Output Total 600 ml Balance 0 ml Intake Oral 300 ml IV Total 300 ml Output Urine Total 600 ml # Bowel Movements 2 Physical Exam Heart: Regular rate, Normal S1, Normal S2, Other (Systolic murmur ) Extremities: No clubbing, No cyanosis, No edema General: Alert, Oriented X3, Cooperative HEENT: Atraumatic, EOMI Lungs: Other (Rhonchi in R lower lobes, expiratory wheezes throughout) MUSCULOSKELETAL: No deformity Neuro: Normal speech Psych/Mental Status: Mental status NL Diagnosis Problem List Problems Medical Problems: (1) Hypoxia Status: Acute (2) Pneumonia Status: Acute Assessment Assessment 1. Healthcare-associated pneumonia. 2. Right lower lobe infiltrate. 3. Coronary artery disease, history of stents. 4. Hypothyroidism. 5. History of back and hip surgery. PLAN: repeat cxr today. labs reviewed good . PT sepsis- Bl c/s Gram positive cocci 08/03.ID streamlining antibiotics cultures, treat for healthcare-associated pneumonia with Levaquin and Zyvox, Zosyn. oxygen breathing treatments and pulmonary consult, . Problems: Plan Plan of Care Problems Medical Problems: (1) Hypoxia Status: Acute (2) Pneumonia Status: Acute Comment Review of Relevant I have reviewed the following items poornima (where applicable) has been applied. Labs Laboratory Tests Test 08/30/16 06:15 White Blood Count 6.7x10^3/uL (4.0-11.0) Red Blood Count 3.46x10^6/uL (3.50-5.40) Hemoglobin 10.2g/dL (12.0-15.5) Hematocrit 31.0% (36.0-47.0) Mean Corpuscular Volume 90fL (79-100) Mean Corpuscular Hemoglobin 30pg (25-35) Mean Corpuscular Hemoglobin Concent 33g/dL (31-37) Red Cell Distribution Width 16.7% (11.5-14.5) Platelet Count 189x10^3/uL (140-400) Neutrophils (%) (Auto) 66% (31-73) Lymphocytes (%) (Auto) 15% (24-48) Monocytes (%) (Auto) 10% (0-9) Eosinophils (%) (Auto) 9% (0-3) Basophils (%) (Auto) 1% (0-3) Neutrophils # (Auto) 4.4x10^3uL (1.8-7.7) Lymphocytes # (Auto) 1.0x10^3/uL (1.0-4.8) Monocytes # (Auto) 0.6x10^3/uL (0.0-1.1) Eosinophils # (Auto) 0.6x10^3/uL (0.0-0.7) Basophils # (Auto) 0.0x10^3/uL (0.0-0.2) Sodium Level 138mmol/L (136-145) Potassium Level 4.1mmol/L (3.5-5.1) Chloride Level 103mmol/L (98-107) Carbon Dioxide Level 32mmol/L (21-32) Anion Gap 3 (6-14) Blood Urea Nitrogen 16mg/dL (7-20) Creatinine 1.2mg/dL (0.6-1.0) Estimated GFR (Cockcroft-Gault) 42.6 BUN/Creatinine Ratio 13 (6-20) Glucose Level 84mg/dL (70-99) Calcium Level 8.7mg/dL (8.5-10.1) Total Bilirubin 0.5mg/dL (0.2-1.0) Aspartate Amino Transf (AST/SGOT) 17U/L (15-37) Alanine Aminotransferase (ALT/SGPT) 13U/L (14-59) Alkaline Phosphatase 35U/L (46-116) Total Protein 6.3g/dL (6.4-8.2) Albumin 2.7g/dL (3.4-5.0) Albumin/Globulin Ratio 0.8 (1.0-1.7) Microbiology 08/27/16 Blood Culture - Final, Complete 08/26/16 Urine Culture - Final, Complete 08/26/16 Urine Culture Result 1 (WENDY) - Final, Complete Medications Current Medications Ondansetron HCl (Zofran) 4 mg 1X ONCE IV Last administered on 08/29/16t 10:29 ; Start 08/29/16 at 10:30; Stop 08/29/16 at 10:31; Status DC Ondansetron HCl (Zofran) 4 mg PRN Q8HRS PRN IV NAUSEA/VOMITING; Start 08/29/16 at 10:30 Vitals/I & O Vital Sign - Last 24 Hours 08/29/16 08/29/16 08/29/16 08/29/16 10:09 11:47 15:14 15:42 Temp 97.9 97.8 97.9 97.8 Pulse 69 67 Resp 18 20 B/P 124/51 115/49 Pulse Ox 93 96 94 O2 Delivery Nasal Cannula Nasal Cannula Nasal Cannula Nasal Cannula O2 Flow Rate 2.0 2.0 2.0 2.0 08/29/16 08/29/16 08/29/16 08/29/16 19:44 19:50 20:00 23:15 Temp 98.1 97.5 98.1 97.5 Pulse 69 65 Resp 15 15 B/P 113/46 110/45 Pulse Ox 92 96 95 O2 Delivery Nasal Cannula Nasal Cannula Nasal Cannula Nasal Cannula O2 Flow Rate 2.0 2.0 2.0 2.0 08/30/16 08/30/16 08/30/16 08/30/16 03:20 07:16 07:50 08:00 Temp 97.5 98.1 97.5 98.1 Pulse 72 64 Resp 17 17 B/P 116/50 115/42 Pulse Ox 95 94 96 O2 Delivery Nasal Cannula Nasal Cannula Room Air Nasal Cannula O2 Flow Rate 2.0 2.0 2.0 2.0 08/30/16 08/30/16 08/30/16 08:58 08:58 09:00 Pulse 64 64 Resp 16 B/P 115/42 115/42 O2 Delivery Nasal Cannula O2 Flow Rate 1.0 Intake and Output 08/29/16 08/29/16 08/30/16 15:00 23:00 07:00 Intake Total 600 ml Output Total 600 ml Balance 600 ml -600 ml DAWN [place] MD August 30, 2016 10:07
[2016-08-30] MEDS ORDERED: ONDANSETRON PF 4 MG/2 ML VIAL. IV PRN (10:15)
[2016-08-30 10:42] VITALS: BP 120/52
--- NOTE | 2016-08-30 11:50 | PDOC ---
PULMONARY PROGRESS NOTES Subjective pt weak no increase soa poor appetite Vitals Vital Signs Date Time Temp Pulse Resp B/P Pulse Ox O2 Delivery O2 Flow Rate FiO2 08/30/16 10:42 98.5 65 18 120/52 92 Room Air 2.0 98.5 General: Short term memory loss, Lungs: Clear Cardiovascular: S1, S2 Abdomen: Soft, Non-tender Neuro Exam: Alert Extremities: No Edema Skin: Warm Labs Laboratory Tests Test 08/29/16 05:00 08/30/16 06:15 White Blood Count 6.1x10^3/uL (4.0-11.0) 6.7x10^3/uL (4.0-11.0) Red Blood Count 3.35x10^6/uL (3.50-5.40) 3.46x10^6/uL (3.50-5.40) Hemoglobin 10.1g/dL (12.0-15.5) 10.2g/dL (12.0-15.5) Hematocrit 29.8% (36.0-47.0) 31.0% (36.0-47.0) Mean Corpuscular Volume 89fL (79-100) 90fL (79-100) Mean Corpuscular Hemoglobin 30pg (25-35) 30pg (25-35) Mean Corpuscular Hemoglobin Concent 34g/dL (31-37) 33g/dL (31-37) Red Cell Distribution Width 16.4% (11.5-14.5) 16.7% (11.5-14.5) Platelet Count 195x10^3/uL (140-400) 189x10^3/uL (140-400) Neutrophils (%) (Auto) 55% (31-73) 66% (31-73) Lymphocytes (%) (Auto) 24% (24-48) 15% (24-48) Monocytes (%) (Auto) 10% (0-9) 10% (0-9) Eosinophils (%) (Auto) 9% (0-3) 9% (0-3) Basophils (%) (Auto) 1% (0-3) 1% (0-3) Neutrophils # (Auto) 3.4x10^3uL (1.8-7.7) 4.4x10^3uL (1.8-7.7) Lymphocytes # (Auto) 1.5x10^3/uL (1.0-4.8) 1.0x10^3/uL (1.0-4.8) Monocytes # (Auto) 0.6x10^3/uL (0.0-1.1) 0.6x10^3/uL (0.0-1.1) Eosinophils # (Auto) 0.6x10^3/uL (0.0-0.7) 0.6x10^3/uL (0.0-0.7) Basophils # (Auto) 0.1x10^3/uL (0.0-0.2) 0.0x10^3/uL (0.0-0.2) Sodium Level 138mmol/L (136-145) 138mmol/L (136-145) Potassium Level 4.2mmol/L (3.5-5.1) 4.1mmol/L (3.5-5.1) Chloride Level 102mmol/L (98-107) 103mmol/L (98-107) Carbon Dioxide Level 31mmol/L (21-32) 32mmol/L (21-32) Anion Gap 5 (6-14) 3 (6-14) Blood Urea Nitrogen 20mg/dL (7-20) 16mg/dL (7-20) Creatinine 1.2mg/dL (0.6-1.0) 1.2mg/dL (0.6-1.0) Estimated GFR (Cockcroft-Gault) 42.6 42.6 BUN/Creatinine Ratio 17 (6-20) 13 (6-20) Glucose Level 100mg/dL (70-99) 84mg/dL (70-99) Calcium Level 8.6mg/dL (8.5-10.1) 8.7mg/dL (8.5-10.1) Total Bilirubin 0.4mg/dL (0.2-1.0) 0.5mg/dL (0.2-1.0) Aspartate Amino Transf (AST/SGOT) 16U/L (15-37) 17U/L (15-37) Alanine Aminotransferase (ALT/SGPT) 10U/L (14-59) 13U/L (14-59) Alkaline Phosphatase 39U/L (46-116) 35U/L (46-116) Total Protein 6.0g/dL (6.4-8.2) 6.3g/dL (6.4-8.2) Albumin 2.7g/dL (3.4-5.0) 2.7g/dL (3.4-5.0) Albumin/Globulin Ratio 0.8 (1.0-1.7) 0.8 (1.0-1.7) Laboratory Tests Test 08/30/16 06:15 White Blood Count 6.7x10^3/uL (4.0-11.0) Red Blood Count 3.46x10^6/uL (3.50-5.40) Hemoglobin 10.2g/dL (12.0-15.5) Hematocrit 31.0% (36.0-47.0) Mean Corpuscular Volume 90fL (79-100) Mean Corpuscular Hemoglobin 30pg (25-35) Mean Corpuscular Hemoglobin Concent 33g/dL (31-37) Red Cell Distribution Width 16.7% (11.5-14.5) Platelet Count 189x10^3/uL (140-400) Neutrophils (%) (Auto) 66% (31-73) Lymphocytes (%) (Auto) 15% (24-48) Monocytes (%) (Auto) 10% (0-9) Eosinophils (%) (Auto) 9% (0-3) Basophils (%) (Auto) 1% (0-3) Neutrophils # (Auto) 4.4x10^3uL (1.8-7.7) Lymphocytes # (Auto) 1.0x10^3/uL (1.0-4.8) Monocytes # (Auto) 0.6x10^3/uL (0.0-1.1) Eosinophils # (Auto) 0.6x10^3/uL (0.0-0.7) Basophils # (Auto) 0.0x10^3/uL (0.0-0.2) Sodium Level 138mmol/L (136-145) Potassium Level 4.1mmol/L (3.5-5.1) Chloride Level 103mmol/L (98-107) Carbon Dioxide Level 32mmol/L (21-32) Anion Gap 3 (6-14) Blood Urea Nitrogen 16mg/dL (7-20) Creatinine 1.2mg/dL (0.6-1.0) Estimated GFR (Cockcroft-Gault) 42.6 BUN/Creatinine Ratio 13 (6-20) Glucose Level 84mg/dL (70-99) Calcium Level 8.7mg/dL (8.5-10.1) Total Bilirubin 0.5mg/dL (0.2-1.0) Aspartate Amino Transf (AST/SGOT) 17U/L (15-37) Alanine Aminotransferase (ALT/SGPT) 13U/L (14-59) Alkaline Phosphatase 35U/L (46-116) Total Protein 6.3g/dL (6.4-8.2) Albumin 2.7g/dL (3.4-5.0) Albumin/Globulin Ratio 0.8 (1.0-1.7) Medications Active Scripts Medications Dose Route/Sig Days Date Category Vitamin C (Ascorbic Acid) 500 Mg Capsule.er 500 Mg PO HS 08/26/16 Reported Senna S Tablet (Sennosides/Docusate Sodium) 1 Each Tablet 1 Each PO PRN STEFANO PRN 08/26/16 Reported Oxycodone Hcl 5 Mg Capsule 5 Mg PO PRN Q4HRS PRN 08/26/16 Reported Miralax (Polyethylene Glycol 3350) 17 Gm Powd.pack 1 Packet PO PRN DAILY PRN 08/26/16 Reported Hydrocodone-Apap 7.5-325 (Hydrocodone Bit/Acetaminophen) 1 Each Tablet 1 Tab PO PRN Q4HRS PRN 08/26/16 Reported Dulcolax (Bisacodyl) 10 Mg Supp.rect 10 Mg RC PRN DAILY PRN 08/26/16 Reported Levaquin (Levofloxacin) 500 Mg Tablet 500 Mg PO DAILY06 5 08/03/16 Rx Mucinex (Guaifenesin) 600 Mg Tablet.er 600 Mg PO BID 08/03/16 Rx Cozaar (Losartan Potassium) 100 Mg Tablet 100 Mg PO DAILY 07/30/16 Reported Amlodipine Besylate 5 Mg Tablet 5 Mg PO DAILY 07/30/16 Reported Acetaminophen 325 Mg Tablet 650 Mg PO PRN Q6HRS PRN 07/30/16 Reported Probiotic (Lactobacillus Combo No.11) 1 Each Cap.sprink 1 Each PO DAILY 09/15/15 Reported Cyclobenzaprine Hcl 5 Mg Tablet 5 Mg PO PRN Q6HRS PRN 09/15/15 Reported Cymbalta (Duloxetine Hcl) 60 Mg Capsule.dr 60 Mg PO HS 09/15/15 Reported Claritin (Loratadine) 10 Mg Tablet 1 Tab PO DAILY 09/15/15 Reported Biofreeze (Menthol) 118 Ml Gel..ml. 118 Ml TP BID 09/15/15 Reported Aspirin 325 Mg Tablet 1 Tab PO DAILY 09/15/15 Reported Levothyroxine Sodium 75 Mcg Tablet 1 Tab PO DAILY 09/15/15 Reported Ocuvite Lutein & Zeaxanthin Cp (Vit C/E/Zn/Coppr/Lutein/Zeaxan) 1 Each Capsule 2 Each PO HS 12/25/14 Reported Allopurinol 100 Mg Tablet 1 Tab PO HS 12/25/14 Reported Calcium (Calcium Carbonate) 500 Mg Tablet 1,000 Mg PO DAILYWLUN 12/25/14 Reported Lidoderm (Lidocaine) 700 Mg Adh..patch 2 Patch TP DAILY 12/25/14 Reported Glucosamine Hcl 1,500 Mg Tablet 1,500 Mg PO DAILYWLUN 12/25/14 Reported FENTANYL 75mcg/hr (Fentanyl) 1 Each Patch.td72 1 Patch TD PRN Q48HR PRN 12/25/14 Reported Lyrica (Pregabalin) 150 Mg Capsule 1 Cap PO HS 12/25/14 Reported Lyrica (Pregabalin) 100 Mg Capsule 1 Cap PO DAILY 12/25/14 Reported Protonix (Pantoprazole Sodium) 40 Mg Tablet.dr 1 Tab PO DAILY 12/25/14 Reported Clopidogrel (Clopidogrel Bisulfate) 75 Mg Tablet 1 Tab PO DAILY 12/25/14 Reported Avalide 300-12.5 Mg Tablet (Irbesartan/Hydrochlorothiazide) 1 Each Tablet 1 Each PO DAILY 12/25/14 Reported Vitamin C (Ascorbic Acid) 500 Mg Capsule.er 500 Mg PO HS 12/25/14 Reported Multivitamins (Multivitamin) 1 Each Tablet 1 Tab PO DAILY 12/25/14 Reported Pv Fish Oil 1,000 Mg Softgel ([place]-3 Fatty Acids/Vitamin E) 1,000 Mg Capsule 1 Cap PO DAILY 12/25/14 Reported Hydrocodone-Apap 10-325 (Hydrocodone Bit/Acetaminophen) 1 Each Tablet 1 Tab PO PRN TID PRN 12/25/14 Reported Impression . 1. Acute respiratory failure secondary to pneumonia/ possible lung mass 2. Abnormal CT revealing evidence of pneumonia, possibly lung mass vs rounded consolidation. 3. CT with no evidence of pulmonary embolism. 4. History of deep venous thrombosis, status post IVC filter placement. 5. Chronic pain syndrome/fibromyalgia. 6. Coronary artery disease with previous myocardial infarction. Plan . 1. Continue coverage for both gram-negative and gram-positive organism, 2. Continue oxygen supplementation. 3. DVT prophylaxis. 4. Nebulized treatments. 5. Repeat CT in 6-8 weeks as an outpatient, 6. PT/OT. 7. Clinically improving . repeat cxr today RADHA PERKINS MD August 30, 2016 11:50
[2016-08-30] MEDS: CALCIUM CARBONATE 500 MG TABLET PO SCH (12:23)
[2016-08-30 15:18] VITALS: BP 113/46
--- NOTE | 2016-08-30 16:54 | RAD ---
Portable chest, 08/30/2016: History: Cough, pneumonia Comparison is made to a study from 08/26/2016. The heart is mildly enlarged. There is calcific plaquing of aorta. The pulmonary vascularity is within normal limits. There is a new opacity along the minor fissure probably representing atelectasis in the anterior segment of the right upper lobe. Pleural fluid is less likely. There are minimal scattered parenchymal scars. IMPRESSION: 1. Mild cardiomegaly and aortic atherosclerosis. 2. Discoid atelectasis in the right parahilar region.
--- NOTE | 2016-08-30 17:13 | PDOC ---
PROGRESS NOTES Subjective Subjective Patient seems to be depressed. No significant cardiac issues. Objective Objective Vital Signs Date Time Temp Pulse Resp B/P Pulse Ox O2 Delivery O2 Flow Rate FiO2 08/30/16 15:54 90 Nasal Cannula 2.0 08/30/16 15:18 98.2 68 16 113/46 98.2 Intake and Output 08/30/16 07:00 Intake Total 600 ml Output Total 600 ml Balance 0 ml Intake Oral 300 ml IV Total 300 ml Output Urine Total 600 ml # Bowel Movements 2 Physical Exam Physical Exam No significant changes in cardiac exam Assessment Assessment No cardiac issues at this time. I agree with the present plan. Problems Medical Problems: (1) Hypoxia Status: Acute (2) Pneumonia Status: Acute Comment Review of Relevant I have reviewed the following items poornima (where applicable) has been applied. Labs Laboratory Tests Test 08/29/16 05:00 08/30/16 06:15 White Blood Count 6.1x10^3/uL (4.0-11.0) 6.7x10^3/uL (4.0-11.0) Red Blood Count 3.35x10^6/uL (3.50-5.40) 3.46x10^6/uL (3.50-5.40) Hemoglobin 10.1g/dL (12.0-15.5) 10.2g/dL (12.0-15.5) Hematocrit 29.8% (36.0-47.0) 31.0% (36.0-47.0) Mean Corpuscular Volume 89fL (79-100) 90fL (79-100) Mean Corpuscular Hemoglobin 30pg (25-35) 30pg (25-35) Mean Corpuscular Hemoglobin Concent 34g/dL (31-37) 33g/dL (31-37) Red Cell Distribution Width 16.4% (11.5-14.5) 16.7% (11.5-14.5) Platelet Count 195x10^3/uL (140-400) 189x10^3/uL (140-400) Neutrophils (%) (Auto) 55% (31-73) 66% (31-73) Lymphocytes (%) (Auto) 24% (24-48) 15% (24-48) Monocytes (%) (Auto) 10% (0-9) 10% (0-9) Eosinophils (%) (Auto) 9% (0-3) 9% (0-3) Basophils (%) (Auto) 1% (0-3) 1% (0-3) Neutrophils # (Auto) 3.4x10^3uL (1.8-7.7) 4.4x10^3uL (1.8-7.7) Lymphocytes # (Auto) 1.5x10^3/uL (1.0-4.8) 1.0x10^3/uL (1.0-4.8) Monocytes # (Auto) 0.6x10^3/uL (0.0-1.1) 0.6x10^3/uL (0.0-1.1) Eosinophils # (Auto) 0.6x10^3/uL (0.0-0.7) 0.6x10^3/uL (0.0-0.7) Basophils # (Auto) 0.1x10^3/uL (0.0-0.2) 0.0x10^3/uL (0.0-0.2) Sodium Level 138mmol/L (136-145) 138mmol/L (136-145) Potassium Level 4.2mmol/L (3.5-5.1) 4.1mmol/L (3.5-5.1) Chloride Level 102mmol/L (98-107) 103mmol/L (98-107) Carbon Dioxide Level 31mmol/L (21-32) 32mmol/L (21-32) Anion Gap 5 (6-14) 3 (6-14) Blood Urea Nitrogen 20mg/dL (7-20) 16mg/dL (7-20) Creatinine 1.2mg/dL (0.6-1.0) 1.2mg/dL (0.6-1.0) Estimated GFR (Cockcroft-Gault) 42.6 42.6 BUN/Creatinine Ratio 17 (6-20) 13 (6-20) Glucose Level 100mg/dL (70-99) 84mg/dL (70-99) Calcium Level 8.6mg/dL (8.5-10.1) 8.7mg/dL (8.5-10.1) Total Bilirubin 0.4mg/dL (0.2-1.0) 0.5mg/dL (0.2-1.0) Aspartate Amino Transf (AST/SGOT) 16U/L (15-37) 17U/L (15-37) Alanine Aminotransferase (ALT/SGPT) 10U/L (14-59) 13U/L (14-59) Alkaline Phosphatase 39U/L (46-116) 35U/L (46-116) Total Protein 6.0g/dL (6.4-8.2) 6.3g/dL (6.4-8.2) Albumin 2.7g/dL (3.4-5.0) 2.7g/dL (3.4-5.0) Albumin/Globulin Ratio 0.8 (1.0-1.7) 0.8 (1.0-1.7) Laboratory Tests Test 08/30/16 06:15 White Blood Count 6.7x10^3/uL (4.0-11.0) Red Blood Count 3.46x10^6/uL (3.50-5.40) Hemoglobin 10.2g/dL (12.0-15.5) Hematocrit 31.0% (36.0-47.0) Mean Corpuscular Volume 90fL (79-100) Mean Corpuscular Hemoglobin 30pg (25-35) Mean Corpuscular Hemoglobin Concent 33g/dL (31-37) Red Cell Distribution Width 16.7% (11.5-14.5) Platelet Count 189x10^3/uL (140-400) Neutrophils (%) (Auto) 66% (31-73) Lymphocytes (%) (Auto) 15% (24-48) Monocytes (%) (Auto) 10% (0-9) Eosinophils (%) (Auto) 9% (0-3) Basophils (%) (Auto) 1% (0-3) Neutrophils # (Auto) 4.4x10^3uL (1.8-7.7) Lymphocytes # (Auto) 1.0x10^3/uL (1.0-4.8) Monocytes # (Auto) 0.6x10^3/uL (0.0-1.1) Eosinophils # (Auto) 0.6x10^3/uL (0.0-0.7) Basophils # (Auto) 0.0x10^3/uL (0.0-0.2) Sodium Level 138mmol/L (136-145) Potassium Level 4.1mmol/L (3.5-5.1) Chloride Level 103mmol/L (98-107) Carbon Dioxide Level 32mmol/L (21-32) Anion Gap 3 (6-14) Blood Urea Nitrogen 16mg/dL (7-20) Creatinine 1.2mg/dL (0.6-1.0) Estimated GFR (Cockcroft-Gault) 42.6 BUN/Creatinine Ratio 13 (6-20) Glucose Level 84mg/dL (70-99) Calcium Level 8.7mg/dL (8.5-10.1) Total Bilirubin 0.5mg/dL (0.2-1.0) Aspartate Amino Transf (AST/SGOT) 17U/L (15-37) Alanine Aminotransferase (ALT/SGPT) 13U/L (14-59) Alkaline Phosphatase 35U/L (46-116) Total Protein 6.3g/dL (6.4-8.2) Albumin 2.7g/dL (3.4-5.0) Albumin/Globulin Ratio 0.8 (1.0-1.7) Microbiology 08/27/16 Blood Culture - Preliminary, Resulted 08/27/16 Blood Culture Result 1 (WENDY) - Preliminary, Resulted 08/27/16 Blood Culture Result 2 (WENDY) - Preliminary, Resulted 08/26/16 Urine Culture - Final, Complete 08/26/16 Urine Culture Result 1 (WENDY) - Final, Complete Medications Current Medications Sodium Chloride (Iv Sodium Chloride 0.9% 1000ml Bag) 1,000 ml @ 1,000 mls/hr 1X ONCE IV Last administered on 08/26/16 17:26; Start 08/26/16 at 17:00; Stop 08/26/16 at 17:59; Status DC Iohexol (Omnipaque 300 Mg/ml) 60 ml 1X ONCE IV Last administered on 08/26/16 18:05; Start 08/26/16 at 18:00; Stop 08/26/16 at 18:01; Status DC Info 1 each 1 each PRN DAILY PRN MC SEE COMMENTS; Start 08/26/16 at 18:00; Stop 08/28/16 at 17:59; Status DC Levofloxacin/ Dextrose 100 ml @ 100 mls/hr Q24H IV ; Start 08/26/16 at 19:45; Status UNV Levofloxacin/ Dextrose (LEVAQUIN 750mg PREMIX) 150 ml @ 100 mls/hr Q48H IV Last administered on 08/28/16 19:19; Start 08/26/16 at 20:00; Stop 08/30/16 at 09:03; Status DC Acetaminophen (Tylenol) 650 mg PRN Q6HRS PRN PO MILD PAIN; Start 08/26/16 at 20 :30 Allopurinol (Zyloprim) 100 mg HS PO Last administered on 08/29/16 21:13; Start 08/26/16 at 21:00 Amlodipine Besylate (Norvasc) 5 mg DAILY PO Last administered on 08/30/16 08:58 ; Start 08/27/16 at 09:00 Aspirin (Gene Aspirin) 325 mg DAILY PO Last administered on 08/30/16 08:59; Start 08/27/16 at 09:00 Bisacodyl (Dulcolax Supp) 10 mg PRN DAILY PRN RC CONSTIPATION; Start 08/26/16 at 20:30 Calcium Carbonate/ Glycine (Oscal) 1,000 mg DAILYWLUN PO Last administered on 12:23; Start 08/27/16 at 12:00 Clopidogrel Bisulfate (Plavix) 75 mg DAILY PO Last administered on 08/30/16 08: 58; Start 08/27/16 at 09:00 Fentanyl (Duragesic 75mcg/ Hr Patch) 1 patch Q3DAYS TD Last administered on 08/30 08:58; Start 08/27/16 at 09:00 Guaifenesin (Mucinex) 600 mg BID PO Last administered on 08/30/16 08:58; Start 08/26/16 at 21:00 Acetaminophen/ Hydrocodone Bitart (Lortab 10/325) 1 tab PRN TID PRN PO SEVERE PAIN; Start 08/26/16 at 20:30 Acetaminophen/ Hydrocodone Bitart (Lortab 7.5/325) 1 tab PRN Q4HRS PRN PO MODERATE PAIN; Start 08/26/16 at 20:30 Levothyroxine Sodium (Synthroid) 75 mcg DAILY07 PO Last administered on 06:14; Start 08/27/16 at 07:00 Lidocaine (Lidoderm) 2 patch DAILY TP Last administered on 08/30/16 08:56; Start 08/27/16 at 09:00 Fish Oil (Fish Oil) 1,000 mg DAILY PO Last administered on 08/30/16 08:58; Start 08/27/16 at 09:00 Pantoprazole Sodium (Protonix) 40 mg DAILYAC PO Last administered on 08/30/16 06:14; Start 08/27/16 at 07:30 Polyethylene Glycol (miraLAX PACKET) 17 gm PRN DAILY PRN PO CONSTIPATION Last administered on 08/28/16 08:44; Start 08/26/16 at 20:30 Senna/Docusate Sodium (Senna Plus) 1 tab PRN DAILY PRN PO CONSTIPATION Last administered on 08/30/16 09:01; Start 08/26/16 at 20:30 Multivitamins/ Minerals (Ocuvite Lutein) 2 cap QHS PO Last administered on 08/29 21:12; Start 08/26/16 at 21:00 Ascorbic Acid (Vitamin C) 500 mg QHS PO Last administered on 08/29/16 21:13; Start 08/26/16 at 21:00 Non-Formulary Medication 500 mg HS PO supplement; Start 08/26/16 at 21:00; Status UNV Cyclobenzaprine HCl (Flexeril) 5 mg PRN Q6HRS PRN PO MUSCLE PAIN; Start at 20:45 Duloxetine HCl (Cymbalta) 60 mg QHS PO Last administered on 08/29/16 21:13; Start 08/26/16 at 21:00 Non-Formulary Medication 1,500 mg DAILYWLUN PO supplement; Start 08/27/16 at 12: 00; Status UNV Non-Formulary Medication 1 each DAILY PO blood pressure; Start 08/27/16 at 09:00 ; Status UNV Lactobacillus Acidophilus (Bacid, [place]-Bid) 2 tab DAILY PO Last administered on 08/30/16 08:59; Start 08/27/16 at 09:00 Cetirizine HCl (Zyrtec) 10 mg DAILY PO Last administered on 08/30/16 08:58; Start 08/27/16 at 09:00 Losartan Potassium (Cozaar) 100 mg DAILY PO Last administered on 08/30/16 09:00 ; Start 08/27/16 at 09:00 Multi-Ingredient Ointment (Analgesic [place]) 1 naun PRN BID PRN TP MUSCLE PAIN; Start 08/26/16 at 20:45 Multivitamins (Thera M Plus) 1 tab DAILY PO Last administered on 08/30/16 08:59 ; Start 08/27/16 at 09:00 Oxycodone HCl (Roxicodone) 5 mg PRN Q4HRS PRN PO SEVERE PAIN Last administered on 08/26/16 23:00; Start 08/26/16 at 20:45 Pregabalin (Lyrica) 100 mg DAILY PO Last administered on 08/30/16 08:59; Start 08/27/16 at 09:00 Pregabalin (Lyrica) 150 mg QHS PO Last administered on 08/29/16 21:14; Start 08/26/16 at 21:00 Albuterol/ Ipratropium (Duoneb) 3 ml RTQID NEB Last administered on 08/30/16 15 :53; Start 08/27/16 at 08:00 Albuterol/ Ipratropium (Duoneb) 3 ml 1X ONCE NEB Last administered on 21:23; Start 08/26/16 at 21:00; Stop 08/26/16 at 21:01; Status DC Enoxaparin Sodium 40 mg 40 mg Q24H SQ Last administered on 08/29/16 21:14; Start 08/26/16 at 21:00 Linezolid 300 ml @ 300 mls/hr Q12HR IV ; Start 08/26/16 at 21:15; Stop at 10:06; Status DC Linezolid (Zyvox Premix) 300 ml @ 300 mls/hr 1X ONCE IV Last administered on 08/27/16 11:52; Start 08/27/16 at 08:00; Stop 08/27/16 at 08:59; Status DC Albuterol Sulfate 2.5 mg 2.5 mg PRN Q2HR PRN NEB DYSPNEA Last administered on 13:15; Start 08/27/16 at 08:15 Linezolid 300 ml @ 300 mls/hr Q12HR IV Last administered on 08/30/16 08:55; Start 08/27/16 at 21:00; Stop 08/30/16 at 09:03; Status DC Piperacillin Sod/ Tazobactam Sod/ Sodium Chloride (Zosyn/Iv Sodium Chloride 0.9 % 50ml) 50 ml @ 100 mls/hr Q6HRS IV Last administered on 08/30/16 12:25; Start 08/27/16 at 12:00 Ondansetron HCl (Zofran) 4 mg 1X ONCE IV Last administered on 08/29/16 10:29 ; Start 08/29/16 at 10:30; Stop 08/29/16 at 10:31; Status DC Ondansetron HCl (Zofran) 4 mg PRN Q8HRS PRN IV NAUSEA/VOMITING; Start 08/29/16 at 10:30; Stop 08/30/16 at 10:12; Status DC Ondansetron HCl (Zofran) 4 mg PRN Q6HRS PRN IV NAUSEA/VOMITING; Start 08/30/16 at 10:15 Active Scripts Active Levaquin (Levofloxacin) 500 Mg Tablet 500 Mg PO DAILY06 5 Days Mucinex (Guaifenesin) 600 Mg Tablet.er 600 Mg PO BID Reported Vitamin C (Ascorbic Acid) 500 Mg Capsule.er 500 Mg PO HS Senna S Tablet (Sennosides/Docusate Sodium) 1 Each Tablet 1 Each PO PRN STEFANO PRN Oxycodone Hcl 5 Mg Capsule 5 Mg PO PRN Q4HRS PRN Miralax (Polyethylene Glycol 3350) 17 Gm Powd.pack 1 Packet PO PRN DAILY PRN Hydrocodone-Apap 7.5-325 (Hydrocodone Bit/Acetaminophen) 1 Each Tablet 1 Tab PO PRN Q4HRS PRN Dulcolax (Bisacodyl) 10 Mg Supp.rect 10 Mg RC PRN DAILY PRN Cozaar (Losartan Potassium) 100 Mg Tablet 100 Mg PO DAILY Amlodipine Besylate 5 Mg Tablet 5 Mg PO DAILY Acetaminophen 325 Mg Tablet 650 Mg PO PRN Q6HRS PRN Probiotic (Lactobacillus Combo No.11) 1 Each Cap.sprink 1 Each PO DAILY Cyclobenzaprine Hcl 5 Mg Tablet 5 Mg PO PRN Q6HRS PRN Cymbalta (Duloxetine Hcl) 60 Mg Capsule.dr 60 Mg PO HS Claritin (Loratadine) 10 Mg Tablet 1 Tab PO DAILY Biofreeze (Menthol) 118 Ml Gel..ml. 118 Ml TP BID Aspirin 325 Mg Tablet 1 Tab PO DAILY Levothyroxine Sodium 75 Mcg Tablet 1 Tab PO DAILY Ocuvite Lutein & Zeaxanthin Cp (Vit C/E/Zn/Coppr/Lutein/Zeaxan) 1 Each Capsule 2 Each PO HS Allopurinol 100 Mg Tablet 1 Tab PO HS Calcium (Calcium Carbonate) 500 Mg Tablet 1,000 Mg PO DAILYWLUN Lidoderm (Lidocaine) 700 Mg Adh..patch 2 Patch TP DAILY Glucosamine Hcl 1,500 Mg Tablet 1,500 Mg PO DAILYWLUN FENTANYL 75mcg/hr (Fentanyl) 1 Each Patch.td72 1 Patch TD PRN Q48HR PRN Lyrica (Pregabalin) 150 Mg Capsule 1 Cap PO HS Lyrica (Pregabalin) 100 Mg Capsule 1 Cap PO DAILY Protonix (Pantoprazole Sodium) 40 Mg Tablet.dr 1 Tab PO DAILY Clopidogrel (Clopidogrel Bisulfate) 75 Mg Tablet 1 Tab PO DAILY Avalide 300-12.5 Mg Tablet (Irbesartan/Hydrochlorothiazide) 1 Each Tablet 1 Each PO DAILY Vitamin C (Ascorbic Acid) 500 Mg Capsule.er 500 Mg PO HS Multivitamins (Multivitamin) 1 Each Tablet 1 Tab PO DAILY Pv Fish Oil 1,000 Mg Softgel ([place]-3 Fatty Acids/Vitamin E) 1,000 Mg Capsule 1 Cap PO DAILY Hydrocodone-Apap 10-325 (Hydrocodone Bit/Acetaminophen) 1 Each Tablet 1 Tab PO PRN TID PRN Vitals/I & O Vital Sign - Last 24 Hours 08/29/16 08/29/16 08/29/16 08/29/16 19:44 19:50 20:00 23:15 Temp 98.1 97.5 98.1 97.5 Pulse 69 65 Resp 15 15 B/P 113/46 110/45 Pulse Ox 92 96 95 O2 Delivery Nasal Cannula Nasal Cannula Nasal Cannula Nasal Cannula O2 Flow Rate 2.0 2.0 2.0 2.0 08/30/16 08/30/16 08/30/16 08/30/16 03:20 07:16 07:50 08:00 Temp 97.5 98.1 97.5 98.1 Pulse 72 64 Resp B/P 116/50 115/42 Pulse Ox 95 94 96 O2 Delivery Nasal Cannula Nasal Cannula Room Air Nasal Cannula O2 Flow Rate 2.0 2.0 2.0 2.0 08/30/16 08/30/16 08/30/16 08/30/16 08:58 08:58 09:00 10:42 Temp 98.5 98.5 Pulse 64 64 65 Resp 18 B/P 115/42 115/42 120/52 Pulse Ox 92 O2 Delivery Nasal Cannula Room Air O2 Flow Rate 1.0 2.0 08/30/16 08/30/16 08/30/16 12:04 15:18 15:54 Temp 98.2 98.2 Pulse 68 Resp 16 B/P 113/46 Pulse Ox 91 90 O2 Delivery Nasal Cannula Room Air Nasal Cannula O2 Flow Rate 2.0 2.0 2.0 Intake and Output 08/29/16 08/29/16 08/30/16 15:00 23:00 07:00 Intake Total 600 ml Output Total 600 ml Balance 600 ml -600 ml EDELMIRA KNOWLES MD August 30, 2016 17:13
[2016-08-30 19:15] VITALS: BP 118/51
[2016-08-30] MEDS: ASCORBIC ACID 500 MG TABLET PO SCH (20:43)
[2016-08-30] MEDS: DULoxetine HCL 30 MG CAPSULE.DR PO SCH (20:43)
[2016-08-30] MEDS: ALLOPURINOL 100 MG TABLET. PO SCH (20:43)
[2016-08-30] MEDS: PREGABALIN 75 MG CAPSULE PO SCH (20:44)
[2016-08-30] MEDS: MULTIVITAMIN EYE FORMULA CAPSULE. PO SCH (20:44)
[2016-08-30] MEDS: ENOXAPARIN 40 MG/0.4 ML SYRINGE. SQ SCH (20:45)
[2016-08-30 23:18] VITALS: BP 142/64
[2016-08-31 03:28] VITALS: BP 136/67
[2016-08-31 05:38] LABS: ALBUMIN 2.9 g/dL (3.4-5.0); ALBUMIN/GLOBULIN RATIO 0.8 (1.0-1.7); CALCIUM 8.9 mg/dL (8.5-10.1); CREATININE 1.2 mg/dL (0.6-1.0); GFR 42.6; POTASSIUM 3.7 mmol/L (3.5-5.1); TOTAL BILIRUBIN 0.6 mg/dL (0.2-1.0); TOTAL PROTEIN 6.4 g/dL (6.4-8.2)
[2016-08-31] MEDS: PIPERACILLIN/TAZOBACTAM 3.375 GM in IV NORMAL SALINE 50ML 50 ML IV SCH (05:49)
[2016-08-31] MEDS: LEVOTHYROXINE 75 MCG TABLET PO SCH (06:15)
[2016-08-31] MEDS: PANTOPRAZOLE 40 MG TABLET.DR. PO SCH (06:15)
[2016-08-31 07:00] VITALS: BP 165/66
[2016-08-31] MEDS: IPRATRPIUM/ALBUTEROL 0.5/2.5MG 3 ML NEBU. NEB SCH ×2 (07:41→11:18)
--- NOTE | 2016-08-31 08:30 | PDOC ---
Infectious Disease Note Subjective Subjective feeling better ROS ROS no n/v/d/pain/sob Vital Sign Vital Signs Vital Signs Date Time Temp Pulse Resp B/P Pulse Ox O2 Delivery O2 Flow Rate FiO2 08/31/16 07:41 92 Nasal Cannula 2.0 08/31/16 07:00 98.6 74 20 165/66 98.6 Physical Exam PHYSICAL EXAM GENERAL: NAD, Alert HEENT: PERRL, OC/OP NECK: Supple, no JVD, no LN LUNGS: Clear HEART: S1S2, no gallop, no murmur ABD: Soft, NT, no organomegaly, no rebound EXT: No edema, no cyanosis INTERVENTION SPECIALIST: Alert, oriented x 3, no focal neurologic deficit SKIN: No rash IV: ok Labs Lab Laboratory Tests Test 08/31/16 03:45 Sodium Level 140mmol/L (136-145) Potassium Level 3.7mmol/L (3.5-5.1) Chloride Level 104mmol/L (98-107) Carbon Dioxide Level 31mmol/L (21-32) Anion Gap 5 (6-14) Blood Urea Nitrogen 17mg/dL (7-20) Creatinine 1.2mg/dL (0.6-1.0) Estimated GFR (Cockcroft-Gault) 42.6 BUN/Creatinine Ratio 14 (6-20) Glucose Level 82mg/dL (70-99) Calcium Level 8.9mg/dL (8.5-10.1) Total Bilirubin 0.6mg/dL (0.2-1.0) Aspartate Amino Transf (AST/SGOT) 18U/L (15-37) Alanine Aminotransferase (ALT/SGPT) 11U/L (14-59) Alkaline Phosphatase 37U/L (46-116) Total Protein 6.4g/dL (6.4-8.2) Albumin 2.9g/dL (3.4-5.0) Albumin/Globulin Ratio 0.8 (1.0-1.7) Micro BLOOD CULTURE PRL Preliminary Preliminary report BLD CULT RESULT 1 Preliminary Comment Coagulase negative Staphylococcus species. Recovered from anaerobic bottle only. BLD CULT RESULT 2 Preliminary Comment Bacillus species, not B. anthracis Recovered from aerobic bottle only. Performed at: [facility] [address], [place] [id number] Budder: Myriam Mclean MD, Phone: [phone] Objective Assessment GPC in clusters 2/4 and 2/4 G + khadra,, likely contaminant HCAP CAD HTN Hypothyroidism Plan Plan of Care change antibiotics to po augmentin f/u cultures Zofran Monitor labs PT/OT CHUY GERBER MD August 31, 2016 08:30
[2016-08-31] MEDS: LACTOBACILLUS ACIDOPH & BULGAR 1 TABLET. PO SCH (09:00)
[2016-08-31] MEDS ORDERED: AMOXICILLIN/K CLAV 875/125MG TABLET. PO SCH (09:00)
--- NOTE | 2016-08-31 09:17 | PDOC ---
PROGRESS NOTES Subjective Subjective feeling better ,loose stools Objective Objective Vital Signs Date Time Temp Pulse Resp B/P Pulse Ox O2 Delivery O2 Flow Rate FiO2 08/31/16 07:41 92 Nasal Cannula 2.0 08/31/16 07:00 98.6 74 20 165/66 98.6 Intake and Output 08/31/16 07:00 Intake Total 1750 ml Output Total 2075 ml Balance -325 ml Intake Oral 1400 ml IV Total 350 ml Output Urine Total 2075 ml # Voids 3 # Bowel Movements 4 Physical Exam Heart: Regular rate, Normal S1, Normal S2, Other (Systolic murmur ) Extremities: No clubbing, No cyanosis, No edema General: Alert, Oriented X3, Cooperative HEENT: Atraumatic, EOMI Lungs: Other (Rhonchi in R lower lobes, expiratory wheezes throughout) MUSCULOSKELETAL: No deformity Neuro: Normal speech Psych/Mental Status: Mental status NL Diagnosis Problem List Problems Medical Problems: (1) Hypoxia Status: Acute (2) Pneumonia Status: Acute Assessment Assessment 1. Healthcare-associated pneumonia. 2. Right lower lobe infiltrate. 3. Coronary artery disease, history of stents. 4. Hypothyroidism. 5. History of back and hip surgery. PLAN: po Augmentin x 5 days spoke with pt and son ,at bedside, discussed end of life issues. pt has living will and pt do not want resuscitation,DNR order placed. snu screen and transfer. repeat cxr today improved lung infiltrates. labs reviewed good . PT/OT sepsis- Bl c/s Gram positive cocci /.ID bacilus contamination cultures, treat for healthcare-associated pneumonia with Levaquin and Zyvox, Zosyn. oxygen breathing treatments and pulmonary consult, . Problems: Plan Plan of Care Problems Medical Problems: (1) Hypoxia Status: Acute (2) Pneumonia Status: Acute Comment Review of Relevant I have reviewed the following items poornima (where applicable) has been applied. Labs Laboratory Tests Test 08/31/16 03:45 Sodium Level 140mmol/L (136-145) Potassium Level 3.7mmol/L (3.5-5.1) Chloride Level 104mmol/L (98-107) Carbon Dioxide Level 31mmol/L (21-32) Anion Gap 5 (6-14) Blood Urea Nitrogen 17mg/dL (7-20) Creatinine 1.2mg/dL (0.6-1.0) Estimated GFR (Cockcroft-Gault) 42.6 BUN/Creatinine Ratio 14 (6-20) Glucose Level 82mg/dL (70-99) Calcium Level 8.9mg/dL (8.5-10.1) Total Bilirubin 0.6mg/dL (0.2-1.0) Aspartate Amino Transf (AST/SGOT) 18U/L (15-37) Alanine Aminotransferase (ALT/SGPT) 11U/L (14-59) Alkaline Phosphatase 37U/L (46-116) Total Protein 6.4g/dL (6.4-8.2) Albumin 2.9g/dL (3.4-5.0) Albumin/Globulin Ratio 0.8 (1.0-1.7) Microbiology 08/27/16 Blood Culture - Preliminary, Resulted 08/27/16 Blood Culture Result 1 (WENDY) - Preliminary, Resulted 08/27/16 Blood Culture Result 2 (WENDY) - Preliminary, Resulted 08/26/16 Urine Culture - Final, Complete 08/26/16 Urine Culture Result 1 (WENDY) - Final, Complete Medications Current Medications Amoxicillin/ Clavulanate Potassium (Augmentin 875/ 125mg) 1 tab BID PO ; Start 08/31/16 at 09:00 Ondansetron HCl (Zofran) 4 mg PRN Q6HRS PRN IV NAUSEA/VOMITING; Start 08/30/16 at 10:15 Vitals/I & O Vital Sign - Last 24 Hours 08/30/16 08/30/16 08/30/16 08/30/16 10:42 12:04 12:58 15:18 Temp 98.5 98.2 98.5 98.2 Pulse 65 68 Resp 18 16 16 B/P 120/52 113/46 Pulse Ox 92 90 91 O2 Delivery Room Air Nasal Cannula Nasal Cannula Room Air O2 Flow Rate 2.0 2.0 2.0 2.0 08/30/16 08/30/16 08/30/16 08/30/16 15:54 19:15 20:09 20:46 Temp 98.2 98.2 Pulse 64 Resp 20 B/P 118/51 Pulse Ox 90 93 O2 Delivery Nasal Cannula Nasal Cannula Nasal Cannula Nasal Cannula O2 Flow Rate 2.0 2.5 2.0 2.0 08/30/16 08/31/16 08/31/16/2/17 23:18 03:28 07:00 07:41 Temp 98.8 98.5 98.6 98.8 98.5 98.6 Pulse 65 70 74 Resp 20 18 20 B/P 142/64 136/67 165/66 Pulse Ox 94 93 93 92 O2 Delivery Nasal Cannula Nasal Cannula Nasal Cannula Nasal Cannula O2 Flow Rate 2.5 2.5 2.0 2.0 Intake and Output 08/30/16 08/30/16 08/31/16 15:00 23:00 07:00 Intake Total 470 ml 780 ml 500 ml Output Total 675 ml 1400 ml Balance -205 ml -620 ml 500 ml DAWN CLEVELAND MD August 31, 2016 09:17
[2016-08-31] MEDS: OMEGA-3 FATTY ACIDS/FISH OIL 1,000 MG CAPSULE. PO SCH (09:49)
[2016-08-31] MEDS: PREGABALIN 50 MG CAPSULE PO SCH (09:49)
[2016-08-31] MEDS: MULTIVITAMIN with MINERAL TABLET. PO SCH (09:50)
[2016-08-31] MEDS: CLOPIDOGREL BISULFATE 75 MG TABLET PO SCH (09:50)
[2016-08-31] MEDS: CETIRIZINE HCL 10 MG TABLET. PO SCH (09:50)
[2016-08-31] MEDS: ASPIRIN 325 MG TABLET PO SCH (09:50)
[2016-08-31] MEDS: LIDOCAINE (700MG/PATCH) PATCH. TP SCH (09:51)
[2016-08-31] MEDS: LOSARTAN POTASSIUM 50 MG TABLET. PO SCH (09:51)
[2016-08-31] MEDS: amLODIPine BESYLATE 5 MG TABLET PO SCH (09:51)
[2016-08-31 10:48] VITALS: BP 165/66
--- NOTE | 2016-08-31 11:52 | PDOC ---
PULMONARY PROGRESS NOTES Subjective pt weak no increase soa poor appetite Vitals Vital Signs Date Time Temp Pulse Resp B/P Pulse Ox O2 Delivery O2 Flow Rate FiO2 08/31/16 11:18 94 Nasal Cannula 2.0 08/31/16 10:48 99.8 77 21 165/66 99.8 General: Short term memory loss, Lungs: Clear Cardiovascular: S1, S2 Abdomen: Soft, Non-tender Neuro Exam: Alert Extremities: No Edema Skin: Warm Labs Laboratory Tests Test 08/30/16 06:15 08/31/16 03:45 White Blood Count 6.7x10^3/uL (4.0-11.0) Red Blood Count 3.46x10^6/uL (3.50-5.40) Hemoglobin 10.2g/dL (12.0-15.5) Hematocrit 31.0% (36.0-47.0) Mean Corpuscular Volume 90fL (79-100) Mean Corpuscular Hemoglobin 30pg (25-35) Mean Corpuscular Hemoglobin Concent 33g/dL (31-37) Red Cell Distribution Width 16.7% (11.5-14.5) Platelet Count 189x10^3/uL (140-400) Neutrophils (%) (Auto) 66% (31-73) Lymphocytes (%) (Auto) 15% (24-48) Monocytes (%) (Auto) 10% (0-9) Eosinophils (%) (Auto) 9% (0-3) Basophils (%) (Auto) 1% (0-3) Neutrophils # (Auto) 4.4x10^3uL (1.8-7.7) Lymphocytes # (Auto) 1.0x10^3/uL (1.0-4.8) Monocytes # (Auto) 0.6x10^3/uL (0.0-1.1) Eosinophils # (Auto) 0.6x10^3/uL (0.0-0.7) Basophils # (Auto) 0.0x10^3/uL (0.0-0.2) Sodium Level 138mmol/L (136-145) 140mmol/L (136-145) Potassium Level 4.1mmol/L (3.5-5.1) 3.7mmol/L (3.5-5.1) Chloride Level 103mmol/L (98-107) 104mmol/L (98-107) Carbon Dioxide Level 32mmol/L (21-32) 31mmol/L (21-32) Anion Gap 3 (6-14) 5 (6-14) Blood Urea Nitrogen 16mg/dL (7-20) 17mg/dL (7-20) Creatinine 1.2mg/dL (0.6-1.0) 1.2mg/dL (0.6-1.0) Estimated GFR (Cockcroft-Gault) 42.6 42.6 BUN/Creatinine Ratio 13 (6-20) 14 (6-20) Glucose Level 84mg/dL (70-99) 82mg/dL (70-99) Calcium Level 8.7mg/dL (8.5-10.1) 8.9mg/dL (8.5-10.1) Total Bilirubin 0.5mg/dL (0.2-1.0) 0.6mg/dL (0.2-1.0) Aspartate Amino Transf (AST/SGOT) 17U/L (15-37) 18U/L (15-37) Alanine Aminotransferase (ALT/SGPT) 13U/L (14-59) 11U/L (14-59) Alkaline Phosphatase 35U/L (46-116) 37U/L (46-116) Total Protein 6.3g/dL (6.4-8.2) 6.4g/dL (6.4-8.2) Albumin 2.7g/dL (3.4-5.0) 2.9g/dL (3.4-5.0) Albumin/Globulin Ratio 0.8 (1.0-1.7) 0.8 (1.0-1.7) Laboratory Tests Test 08/31/16 03:45 Sodium Level 140mmol/L (136-145) Potassium Level 3.7mmol/L (3.5-5.1) Chloride Level 104mmol/L (98-107) Carbon Dioxide Level 31mmol/L (21-32) Anion Gap 5 (6-14) Blood Urea Nitrogen 17mg/dL (7-20) Creatinine 1.2mg/dL (0.6-1.0) Estimated GFR (Cockcroft-Gault) 42.6 BUN/Creatinine Ratio 14 (6-20) Glucose Level 82mg/dL (70-99) Calcium Level 8.9mg/dL (8.5-10.1) Total Bilirubin 0.6mg/dL (0.2-1.0) Aspartate Amino Transf (AST/SGOT) 18U/L (15-37) Alanine Aminotransferase (ALT/SGPT) 11U/L (14-59) Alkaline Phosphatase 37U/L (46-116) Total Protein 6.4g/dL (6.4-8.2) Albumin 2.9g/dL (3.4-5.0) Albumin/Globulin Ratio 0.8 (1.0-1.7) Medications Active Scripts Medications Dose Route/Sig Days Date Category Vitamin C (Ascorbic Acid) 500 Mg Capsule.er 500 Mg PO HS 08/26/16 Reported Senna S Tablet (Sennosides/Docusate Sodium) 1 Each Tablet 1 Each PO PRN STEFANO PRN 08/26/16 Reported Oxycodone Hcl 5 Mg Capsule 5 Mg PO PRN Q4HRS PRN 08/26/16 Reported Miralax (Polyethylene Glycol 3350) 17 Gm Powd.pack 1 Packet PO PRN DAILY PRN 08/26/16 Reported Hydrocodone-Apap 7.5-325 (Hydrocodone Bit/Acetaminophen) 1 Each Tablet 1 Tab PO PRN Q4HRS PRN 08/26/16 Reported Dulcolax (Bisacodyl) 10 Mg Supp.rect 10 Mg RC PRN DAILY PRN 08/26/16 Reported Levaquin (Levofloxacin) 500 Mg Tablet 500 Mg PO DAILY06 5 08/03/16 Rx Mucinex (Guaifenesin) 600 Mg Tablet.er 600 Mg PO BID 08/03/16 Rx Cozaar (Losartan Potassium) 100 Mg Tablet 100 Mg PO DAILY 07/30/16 Reported Amlodipine Besylate 5 Mg Tablet 5 Mg PO DAILY 07/30/16 Reported Acetaminophen 325 Mg Tablet 650 Mg PO PRN Q6HRS PRN 07/30/16 Reported Probiotic (Lactobacillus Combo No.11) 1 Each Cap.sprink 1 Each PO DAILY 09/15/15 Reported Cyclobenzaprine Hcl 5 Mg Tablet 5 Mg PO PRN Q6HRS PRN 09/15/15 Reported Cymbalta (Duloxetine Hcl) 60 Mg Capsule.dr Ruvalcaba Mg PO HS 09/15/15 Reported Claritin (Loratadine) 10 Mg Tablet 1 Tab PO DAILY 09/15/15 Reported Biofreeze (Menthol) 118 Ml Gel..ml. 118 Ml TP BID 09/15/15 Reported Aspirin 325 Mg Tablet 1 Tab PO DAILY 09/15/15 Reported Levothyroxine Sodium 75 Mcg Tablet 1 Tab PO DAILY 09/15/15 Reported Ocuvite Lutein & Zeaxanthin Cp (Vit C/E/Zn/Coppr/Lutein/Zeaxan) 1 Each Capsule 2 Each PO HS 12/25/14 Reported Allopurinol 100 Mg Tablet 1 Tab PO HS 12/25/14 Reported Calcium (Calcium Carbonate) 500 Mg Tablet 1,000 Mg PO DAILYWLUN 12/25/14 Reported Lidoderm (Lidocaine) 700 Mg Adh..patch 2 Patch TP DAILY 12/25/14 Reported Glucosamine Hcl 1,500 Mg Tablet 1,500 Mg PO DAILYWLUN 12/25/14 Reported FENTANYL 75mcg/hr (Fentanyl) 1 Each Patch.td72 1 Patch TD PRN Q48HR PRN 12/25/14 Reported Lyrica (Pregabalin) 150 Mg Capsule 1 Cap PO HS 12/25/14 Reported Lyrica (Pregabalin) 100 Mg Capsule 1 Cap PO DAILY 12/25/14 Reported Protonix (Pantoprazole Sodium) 40 Mg Tablet.dr 1 Tab PO DAILY 12/25/14 Reported Clopidogrel (Clopidogrel Bisulfate) 75 Mg Tablet 1 Tab PO DAILY 12/25/14 Reported Avalide 300-12.5 Mg Tablet (Irbesartan/Hydrochlorothiazide) 1 Each Tablet 1 Each PO DAILY 12/25/14 Reported Vitamin C (Ascorbic Acid) 500 Mg Capsule.er 500 Mg PO HS 12/25/14 Reported Multivitamins (Multivitamin) 1 Each Tablet 1 Tab PO DAILY 12/25/14 Reported Pv Fish Oil 1,000 Mg Softgel (Kilmichael-3 Fatty Acids/Vitamin E) 1,000 Mg Capsule 1 Cap PO DAILY 12/25/14 Reported Hydrocodone-Apap 10-325 (Hydrocodone Bit/Acetaminophen) 1 Each Tablet 1 Tab PO PRN TID PRN 12/25/14 Reported Impression . 1. Acute respiratory failure secondary to pneumonia/ possible lung mass 2. Abnormal CT revealing evidence of pneumonia, possibly lung mass vs rounded consolidation. 3. CT with no evidence of pulmonary embolism. 4. History of deep venous thrombosis, status post IVC filter placement. 5. Chronic pain syndrome/fibromyalgia. 6. Coronary artery disease with previous myocardial infarction. 7. Coag neg staph in blood, likely contaminant Plan . 1. Continue antibiotic per ID 2. Continue oxygen supplementation. 3. DVT prophylaxis. 4. Nebulized treatments. 5. Repeat CT in 6-8 weeks as an outpatient, 6. PT/OT. 7. Clinically improving . repeat cxr with improving Right LL infiltrate/ new Atelectasis RUL follow up with Dr Genao in September with ct chest RADHA PERKINS MD August 31, 2016 11:52
[2016-08-31] MEDS ORDERED: AMOX1TAB11 PO (12:53)
[2016-08-31 16:10] VITALS: BP 150/65
--- NOTE | 2016-09-01 10:01 | PDOC ---
Provider Note Provider Note Discharge summary dictated. #[id number] DWAN CLEVELAND MD September 01, 2016 10:01
--- NOTE | 2016-09-01 19:33 | DS ---
DATE OF DISCHARGE: 08/31/2016 REASON FOR ADMISSION TO THE HOSPITAL: Healthcare-associated pneumonia. CONSULTATIONS: Dr. Liu, Cardiology, Dr. Genao, Pulmonology, and Dr. Chad Guo, Infectious Disease. PROCEDURES DONE: CT chest. HOSPITAL COURSE: The patient is an 86-year-old female patient lives in an assisted care facility. She was admitted to the hospital a month ago for pneumonia. She was having similar symptoms, cough, congestion, not feeling well, came to the Emergency Room. X-ray shows infiltrates in the lung and the patient had a CT scan, which shows no evidence of PE, has 3-cm opacity in the right lower lobe. The patient was seen by Pulmonology as well as Infectious Disease because she was in the hospital a month ago as well as was in an assisted facility, was treated with broad spectrum antibiotics, Zyvox and Zosyn. After a couple of days, the patient was changed to Augmentin. The patient initially had positive blood cultures, 4/4 blood, but staff contamination shows bacillus species and it was felt to be contamination. The patient had repeat x-ray, shows improvement. Pulmonary, does not think anything at this point, will repeat CT scan in 2 months to follow up on that infiltrate in the lung. On the whole, patient's condition improved, discussed with the patient's prognosis with the patient's family, she has been weak, has been declining, discussed about a living will. She expressed, she does not want intubation, CPR, wants DNR and the patient was transferred to [facility] for therapy, rehab, and probably may need long-term long-term placement. FINAL DIAGNOSES: 1. Healthcare-associated pneumonia, right lower lobe. 2. Positive blood cultures, Staph, looks like skin contamination, bacillus species. 3. Hypertension. 4. Hypothyroidism. 5. Coronary artery disease, at least 3 stents in the heart. 6. Depression. 7. Fibromyalgia. 8. Arthritis. 9. Spinal stenosis, at least 5 surgeries in the back. 10. Macular degeneration. 11. She also had a history of IVC filter. DISPOSITION: To custodial, [facility]. DISCHARGE MEDICATIONS: See MRAD for discharge medications. Prognosis is guarded. The patient is a DNR. DAWN CLEVELAND MD DR: KASSI/ellis JOB#: [id number] / [id number] wendy Desouza Dr[address] [facility]ENTER[facility]ito
== END 2016-08-31 16:00 | DRG 177 ==
LOC: ER 14:34 → 2 SOUTH 16:30 → OBSVTOIN 20:54
PROVIDERS: ADMIT Internal Medicine; ATTEND Internal Medicine
DX: J15.6 Pneumonia due to other Gram-negative bacteria (principal); J96.01 Acute respiratory failure with hypoxia; R78.81 Bacteremia; M19.90 Unspecified osteoarthritis, unspecified site; F32.9 Major depressive disorder, single episode, unspecified; K21.9 Gastro-esophageal reflux disease without esophagitis; I10 Essential (primary) hypertension; Z96.641 Presence of right artificial hip joint; I25.10 Atherosclerotic heart disease of native coronary artery without angina pectoris; G89.4 Chronic pain syndrome; M79.7 Fibromyalgia; H35.30 Unspecified macular degeneration; E78.5 Hyperlipidemia, unspecified; K59.00 Constipation, unspecified; Y95 Nosocomial condition; E03.9 Hypothyroidism, unspecified; I25.2 Old myocardial infarction; Z88.8 Allergy status to other drugs, medicaments and biological substances; Z86.718 Personal history of other venous thrombosis and embolism; Z80.9 Family history of malignant neoplasm, unspecified; Z87.891 Personal history of nicotine dependence
CPT/HCPCS: 36415; 71010; 71275; 80048; 80053; 80076; 81001; 82553; 83690; 83735; 83880; 84443; 84484; 85027; 85379; 85610; 87040; 87070; 87086; 87205; 87804; 93005; 94250; 94640; 94760; 96360; G0378; G0379; J1650; J1956; J2020; J2405; J2543; J7030; J7620; Q9967; 97110; 97116; 99285-25